=== PATIENT | male | born 1955 | race Caucasian/White ===

== ENCOUNTER 2019-06-28 15:08 | Outpatient (CLI) | payer OTHER, SELFPAY ==
--- NOTE | ~2019-06-28 | CT_ITS ---
EXAMINATION: CT abdomen wo con EXAM DATE: 06/28/2019 15:32 INDICATION: Abdominal pain. TECHNIQUE: Spiral CT of the abdomen was performed without contrast. Axial, coronal and sagittal carmella ges were reviewed. The dose-length product (DLP) for this examination was 338.23 mGy-cm. The exposu re was tailored according to patient size (auto mA exposure control), and iterative reconstruction (A SIR) was used as additional dose reduction technique. Comparison is made to prior examination from . FINDINGS: The liver, spleen, adrenal glands and pancreas are unremarkable. Gallbladder is unremarkab le. No biliary obstruction. There are 2 punctate left calyceal stones. No hydronephrosis. There i s no retroperitoneal lymphadenopathy. The appendix is normal. The stomach and small bowel are unremarkable. There is expected amount of c olonic stool. No free intraperitoneal gas. The heart is normal in size. There are no pericardial or pleural effusions. The lung bases are unremarkable. Moderate to severe thoracolumbar disc disea se. IMPRESSION: 1. No acute intra-abdominal findings. 2. Punctate left nephrolithiasis. Reviewed, dictated and finalized at location B. E TENDER
== END 2019-06-28 15:09 | disposition home or self-care (01) ==
PROVIDERS: PCP Emergency Medicine; Visit Provider Emergency Medicine
DX: R10.9 Unspecified abdominal pain (principal); N20.0 Calculus of kidney
CPT/HCPCS: 74150

== ENCOUNTER 2019-07-06 11:01 | Emergency (ER) | payer OTHER, SELFPAY ==
--- NOTE | ~2019-07-06 | CT_ITS ---
EXAMINATION: CT abdomen pelvis w con EXAM DATE: 07/06/2019 13:10 INDICATION: Right lower quadrant pain, symptoms 5 days. TECHNIQUE: Spiral CT of the abdomen and pelvis was performed following intravenous injection of 100 m L Omnipaque 350. Axial, coronal and sagittal images were reviewed. The dose-length product (DLP) fo r this examination was 516.32 mGy-cm. The exposure was tailored according to patient size (auto mA e xposure control), and iterative reconstruction (ASIR) was used as additional dose reduction technique . Comparison is made to prior examination from 06/28/2019. FINDINGS: The liver, spleen, adrenal glands and pancreas are unremarkable. Gallbladder is unremarkab le. No biliary obstruction. Portal and splenic veins are patent. Kidneys enhance symmetrically. T here is no hydronephrosis. The prostate is unremarkable. The bladder is unremarkable. There is no retroperitoneal or pelvic lymphadenopathy. Appendix has some dense material within it, as seen on prior study The appendix is retrocecal in location with some dense material inside as previously seen, without ad jacent inflammation. The stomach and small bowel are unremarkable. There is expected amount of colo everette stool. No free intraperitoneal gas. The heart is normal in size. There are no pericardial or pleural effusions. The lung bases are unremarkable. There are no osteoblastic or osteolytic lesion s identified. Moderate to severe thoracolumbar spondylosis. IMPRESSION: 1. No acute intra-abdominal findings. Reviewed, dictated and finalized at location A. E CHECKER
[2019-07-06 11:07] VITALS: BP 125/75; PULSE 74; RESP 18; TEMP 36.8; O2SAT 99
[2019-07-06 11:58] VITALS: BP 111/75; PULSE 74; RESP 16; O2SAT 100
--- NOTE | 2019-07-06 12:15 | ED.ABDPAIN ---
HPI - Abdominal Pain General Chief Complaint: Abdominal Pain Stated Complaint: RLQ pain Time Seen by Provider: 07/06/19 11:58 Source: patient Mode of arrival: ambulatory Limitations: no limitations History of Present Illness HPI narrative: Patient is a 63-year-old male who presents to emergency department for evaluation of abdominal pain localized to the right side that is been present now for 10 days has had a history of chronic low back pain for which he takes hydrocodone. Patient notes that he had recent CAT scan with unsure etiology to his pain. Patient notes he has had decreased appetite with some nausea and vomiting. Patient denies change in bowel habits or any constipation diarrhea rectal bleeding or melena. Patient does not take anything other than his prescribed pain medication. Pain is worse with activity and movement and p.o. intake Related Data Home Medications Medication Instructions Recorded Confirmed hydrocodone 10 mg-acetaminophen 1 tablet PO Q4-6H PRN tablet 06/21/19 325 mg tablet valacyclovir 500 mg tablet 500 mg PO DAILY 06/21/19 Allergies Allergy/AdvReac Type Severity Reaction Status Date / Time No Known Allergies Allergy Verified 07/06/19 12:00 Review of Systems Review of Systems: All systems reviewed & are unremarkable except as noted in HPI and below PMFSH Past Medical History Medical History (Updated 07/06/19 @ 13:48 by Denis Oneal PA-C) Nephrolithiasis Surgical History Surgical History (Updated 07/06/19 @ 12:19 by Denis Oneal PA-C) H/O endoscopy Hx of colonoscopy Social History Social History Smoking status: Never smoker Alcohol intake: current Gender identity (if verbalized by the patient): Male Exam Narrative: Exam Narrative: GENERAL: Well-appearing, well-nourished, and in no acute distress. HEAD: Normocephalic, atraumatic. EYES: PERRLA and EOMI. ENT: Nares clear, no rhinorrhea or epistaxis. Mucous membranes moist. CHEST: Clear to auscultation. No respiratory distress. No wheezes rales or rhonchi HEART: Regular rate and rhythm. No murmur heard. Normal peripheral pulses. ABDOMEN: Soft, right-sided abdominal tenderness, nondistended EXTREMITIES: Normal range of motion. No edema. SKIN: Warm, dry, no rash. NEURO: No focal deficits. Alert and oriented x3. PSYCH: Normal mood and affect. Course Course Emergency Course: Patient in the room in no distress aware of case findings treatment plan and diagnosis agreeing to follow-up as directed or to return if symptoms worsen or concerns Vital Signs Vital signs: Vital Signs Temperature 98.2 F 07/06/19 11:07 Pulse Rate 74 07/06/19 11:07 Respiratory Rate 18 07/06/19 11:07 Blood Pressure 125/75 07/06/19 11:07 Pulse Oximetry 99 07/06/19 11:07 Temperature 98.2 F 07/06/19 11:07 Pulse Rate 74 07/06/19 11:58 Respiratory Rate 16 07/06/19 11:58 Blood Pressure 111/75 07/06/19 11:58 Pulse Oximetry 100 07/06/19 11:58 MDM - Abdominal Pain MDM Narrative Medical decision making narrative: Patient in the room in no distress unclear as to the etiology of his chronic belly pains patient without high risk changes in the blood work or imaging will be referred to gastroenterology for further evaluation. Patient was also provided with reasons to return Lab Data Result diagrams: 07/06/19 12:04 07/06/19 12:04 Labs: Lab Results 07/06/19 07/06/19 07/06/19 Range/Units 12:04 12:04 12:40 WBC 4.5 (4.5-10.0) K/mm3 RBC 4.74 (4.6-6.20) M/mm3 Hgb 14.5 (14.0-18.0) g/dL Hct 45.2 (42.0-52.0) % MCV 95.4 (80-100) fl MCH 30.6 (26-34) pg MCHC 32.1 (32-36) g/dl RDW 12.8 (11.5-14.5) % Plt Count 136 L (150-375) k/mm3 MPV 12.5 H (7.4-10.4) fl Immature Gran % (Auto) 0.4 (0-0.5) % Neut % (Auto) 55.4 (45.5-73.1) % Lymph % (Auto) 32.5 (18.3-44.2)
[2019-07-06 12:18] LABS: Basophils Percent Auto 0.7 % (0.2-1.2); Eosinophils Absolute Auto 0.2 K/mm3 (0-0.3); Eosinophils Percent Auto 4.5 % (0-4.4); Hematocrit 45.2 % (42.0-52.0); Hemoglobin 14.5 g/dL (14.0-18.0); Immature Granulocyte Absolute 0.02 K/mm3 (0.00-0.031); Immature Granulocyte Percent A 0.4 % (0-0.5); Lymphocytes Absolute Auto 1.46 K/mm3 (0.9-3.2); Lymphocytes Percent Auto 32.5 % (18.3-44.2); Mean Corpuscular HGB Conc 32.1 g/dl (32-36); Mean Corpuscular Hemoglobin 30.6 pg (26-34); Mean Corpuscular Volume 95.4 fl (80-100); Mean Platelet Volume 12.5 fl (7.4-10.4); Monocytes Absolute Auto 0.3 K/mm3 (0.1-0.6); Monocytes Percent Auto 6.5 % (2.6-8.5); Neutrophils Absolute Auto 2.5 K/mm3 (1.3-6.7); Neutrophils Percent Auto 55.4 % (45.5-73.1); Platelet Count Result 136 k/mm3 (150-375); Red Blood Count 4.74 M/mm3 (4.6-6.20); Red Cell Distribution Width 12.8 % (11.5-14.5); White Blood Count 4.5 K/mm3 (4.5-10.0)
[2019-07-06 12:30] LABS: Alanine Aminotransferase 38 U/L (4-50); Albumin Level 4.8 g/dL (3.5-5.1); Alkaline Phosphatase 61 U/L (38-126); Aspartate Amino Transferase 35 U/L (17-59); Bilirubin,Total 0.8 mg/dL (0.2-1.3); Blood Urea Nitrogen 11 mg/dL (9-20); Calcium 9.7 mg/dL (8.4-10.2); Carbon Dioxide 27 mmol/L (22-30); Chloride 99 mmol/L (98-107); Estimated CRCL calculation 92 ml/min; Estimated Glomerular Filt Rate > 60; Glucose 91 mg/dL (75-110); Lipase 78 U/L (23-300); Potassium 4.3 mmol/L (3.4-5.0); Sodium 140 mmol/L (137-145)
[2019-07-06] MEDS: SODIUM CHLORIDE 0.9% IV 1,000 ML 999 ML IV CONT (12:30)
[2019-07-06] MEDS: FAMOTIDINE 20 MG/2 ML VIAL IV PUSH (12:48)
[2019-07-06] MEDS: ONDANSETRON INJ 4 MG/2 ML VIAL IV PUSH (12:48)
[2019-07-06 12:52] LABS: Add Urine Microscopic? YES; Appearance Urine Clear (Clear); Bacteria Urine Trace /hpf; Bilirubin Urine Negative (Negative); Blood Urine Negative (Negative); Color Urine Yellow (Yellow); Glucose Urine UA Negative (Negative); Ketones Urine 1+ mg/dL (Negative); Leukocyte Esterase Ur Negative LEU/UL (Negative); Mucus Urine Moderate /lpf; Nitrate Urine Negative (Negative); Protein Urine 1+ mg/dL (Negative); RBC Urine 0-2 /hpf (0-2); Specific Grav Ur 1.017 (1.001-1.035); Squamous Epithelial Cell Urine Rare /hpf (Few); Urobilinogen Urine Negative mg/dL (<2.0); WBC Urine 0-3 /hpf
[2019-07-06 14:23] VITALS: BP 118/70; PULSE 82; RESP 16; O2SAT 99
== END 2019-07-06 14:10 | disposition home or self-care (01) ==
PROVIDERS: Emergency Medicine Emergency Medical Services; Emergency Provider Emergency Medicine; PCP Emergency Medicine
DX: R10.9 Unspecified abdominal pain (principal); Z87.442 Personal history of urinary calculi
CPT/HCPCS: 36415; 74177; 80053; 81001; 83690; 85025; 96361; 96374; 96375; 99284; J0131; J2405; J7030; Q9967

== ENCOUNTER 2019-07-19 01:24 | Day surgery (SDC) | payer OTHER, SELFPAY ==
[2019-07-16 15:28] VITALS: BMI 24.0
[2019-07-19 11:12] VITALS: BP 113/72; PULSE 64; RESP 20; TEMP 36.3; O2SAT 96; BMI 24.0
[2019-07-19] MEDS: LACTATED RINGERS 1,000 ML 150 ML IV CONT (11:35)
--- NOTE | 2019-07-19 11:44 | WPDANESEPPF ---
Anes - Initial Pre Proc Eval Procedure: Operation Date: 07/19/19 12:30 Proposed Procedures p Esophagogastroduodenoscopy - Marco A Baez MD Date/Time: 07/19/19 11:44 Surgeon: Marco A Baez MD Pre Op Diagnosis: Nausea Patient Data Age: 63 Gender: M Height: 1.88 m Weight: 84.9 kg Last Vital Signs Temp 36.3 C L 07/19/19 11:12 Pulse 64 07/19/19 11:12 Resp 20 07/19/19 11:12 BP 113/72 07/19/19 11:12 Pulse Ox 96 07/19/19 11:12 Allergies Allergy/AdvReac Type Severity Reaction Status Date / Time No Known Allergies Allergy Verified 07/19/19 11:11 Home Medications Medication Instructions Recorded Confirmed Type cetirizine 10 mg tablet 10 mg PO BID #60 tablet 06/04/19 07/16/19 Rx zolpidem 10 mg tablet 10 mg PO ONCE PRN #30 tablet 06/08/19 07/16/19 Rx hydrocodone 10 mg-acetaminophen 1 tablet PO Q4-6H PRN tablet 06/21/19 07/19/19 History 325 mg tablet valacyclovir 500 mg tablet 500 mg PO DAILY 06/21/19 07/16/19 History famotidine [Pepcid] 20 mg PO BID #14 tablet 07/06/19 07/16/19 Rx hyoscyamine sulfate [Levsin] 0.125 mg PO QID #10 tablet 07/06/19 07/16/19 Rx ondansetron 4 mg PO TID #7 tablet 07/06/19 07/16/19 Rx esomeprazole magnesium 40 mg 40 mg PO DAILY #30 cap 07/12/19 07/16/19 Rx capsule,delayed release lifitegrast [Xiidra] 2 drp OPHTHALMIC (EYE) DAILY 07/16/19 07/19/19 History Patient hx anesthesia problems: none Family hx anesthesia problems: none PMFSH Past Medical History Medical History (Updated 07/19/19 @ 11:45 by Deejay Osborn DO) Chronic pain Depression GERD (gastroesophageal reflux disease) Nausea Nephrolithiasis RLQ abdominal pain Thrombocytopenia Surgical History Surgical History (Updated 07/06/19 @ 12:19 by Denis Oneal PA-C) H/O endoscopy Hx of colonoscopy Social History Social History Smoking status: Never smoker Alcohol intake: current Gender identity (if verbalized by the patient): Male Anes - Eval Final PreProcedure Day of Procedure 07/19/19 11:44 Patient weight: normal Heart: regular rate and rhythm Lungs: clear to auscultation and normal air movement Airway: Mallampati scale class II Neurological: alert and oriented Last oral intake: >/= 8 hours ASA classification: III Emergent: no Anesthetic plan: proceed Anesthesia type and monitoring: general GIVS and standard monitoring Informed Consent: The patient's anesthetic plan and its attendant risks and benefits were discussed with the patient/family/POA. Questions were solicited and answers provided to the satisfaction of the patient/family/POA.
--- NOTE | 2019-07-19 12:09 | WPDHPUPDATE1 ---
History and Physical Update Update Date/Time: 07/19/19 12:09 History and Physical has been reviewed, including an updated exam of the patient. There are NO changes in the patient's condition. Risks, benefits, and alternatives have been discussed and questions answered. Patient agrees to proceed with procedure.
[2019-07-19 12:30] VITALS: BP 101/62; PULSE 55; RESP 17; O2SAT 98
[2019-07-19 12:40] VITALS: BP 99/62; PULSE 55; RESP 16; O2SAT 99
[2019-07-19 12:50] VITALS: BP 102/69; PULSE 52; RESP 18; O2SAT 99
== END 2019-07-19 13:06 | disposition home or self-care (01) ==
PROVIDERS: PCP Emergency Medicine; Visit Provider Internal Medicine Gastroenterology
PROC: 0DJ08ZZ Inspection of Upper Intestinal Tract, Via Natural or Artificial Opening Endoscopic (ICD-10-PCS; CPT 43235; principal; 2019-07-19 12:30)
DX: K21.0 Gastro-esophageal reflux disease with esophagitis (principal); K44.9 Diaphragmatic hernia without obstruction or gangrene; K29.70 Gastritis, unspecified, without bleeding; G89.29 Other chronic pain; F32.9 Major depressive disorder, single episode, unspecified; Z79.891 Long term (current) use of opiate analgesic
CPT/HCPCS: 43239; 88305; J2704; J7120

== ENCOUNTER 2020-06-16 11:08 | Emergency (ER) | payer MEDICARE, SELFPAY ==
[2020-06-16] VITALS (16 sets, daily range): BP systolic 112–138; BP diastolic 67–89; PULSE 56–79; RESP 6–20; TEMP 37.1; O2SAT 95–100
--- NOTE | ~2020-06-16 | XR_ITS ---
XR chest 2V DATE: 06/16/2020 11:56 INDICATION: Chest pain for one day TECHNIQUE: PA and lateral views COMPARISON: 02/04/2017 two-view chest 03/24/2017 CT chest abdomen pelvis FINDINGS: Normal heart size. Mild aortic unfolding. No hilar or mediastinal enlargement. No pulmonary infiltrate or consolidation, pleural effusion or pulmonary vascular congestion or pneumo thorax. Degenerative spurring of the thoracic spine. Osteopenia. IMPRESSION: No active cardiac pulmonary disease Reviewed, dictated and finalized at location A. ACUTE CARE REGISTERED NURSE
--- NOTE | 2020-06-16 11:12 | ECG_ITS ---
Measurements Intervals Capac Rate: 64 P: 58 VA: 168 QRS: 63 QRSD: 102 T: 56 QT: 396 QTc: 410 Interpretive Statements SINUS RHYTHM BASELINE ARTIFACT- I, III, AVL BORDERLINE ECG Electronically Signed On 06-16-2020 11:32:36 AN EMPLOYEE SPONSOR OR ADVOCATE AND by Raphael Mckeon D.O.
[2020-06-16 11:33] LABS: Basophils Percent Auto 0.6 % (0.2-1.2); Eosinophils Absolute Auto 0.2 K/mm3 (0-0.3); Eosinophils Percent Auto 5.5 % (0-4.4); Hematocrit 46.7 % (42.0-52.0); Immature Granulocyte Absolute 0.01 K/mm3 (0.00-0.031); Immature Granulocyte Percent A 0.3 % (0-0.5); Immature Platelet Fraction Pct 9.9 % (0.9-11.2); Lymphocytes Percent Auto 33.1 % (18.3-44.2); Mean Corpuscular HGB Conc 32.1 g/dl (32-36); Mean Corpuscular Hemoglobin 30.9 pg (26-34); Mean Corpuscular Volume 96.3 fl (80-100); Mean Platelet Volume 11.9 fl (7.4-10.4); Monocytes Absolute Auto 0.3 K/mm3 (0.1-0.6); Monocytes Percent Auto 7.7 % (2.6-8.5); Neutrophils Absolute Auto 1.9 K/mm3 (1.3-6.7); Neutrophils Percent Auto 52.8 % (45.5-73.1); Platelet Count Result 118 k/mm3 (150-375); Red Blood Count 4.85 M/mm3 (4.6-6.20); Red Cell Distribution Width 13.2 % (11.5-14.5); White Blood Count 3.6 K/mm3 (4.5-10.0)
[2020-06-16] MEDS: ASPIRIN 81 MG CHEWABLE TABLET 324 MG PO (11:37)
[2020-06-16 11:41] LABS: Anion Gap 3 mmol/L (8-16); Blood Urea Nitrogen 9 mg/dL (9-20); Calcium 8.7 mg/dL (8.4-10.2); Carbon Dioxide 32 mmol/L (22-30); Chloride 105 mmol/L (98-107); Estimated CRCL calculation 91 ml/min; Estimated Glomerular Filt Rate > 60; Glucose 92 mg/dL (75-110); Potassium 4.1 mmol/L (3.4-5.0); Sodium 140 mmol/L (137-145)
[2020-06-16 11:42] LABS: INR 0.9; Prothrombin Time 12.9 Seconds (11.1-14.7)
--- NOTE | 2020-06-16 11:43 | ED.CHESTPAIN ---
HPI - Chest Pain General Chief Complaint: Chest Pain Stated Complaint: chest pain Time Seen by Provider: 06/16/20 11:31 Source: patient Mode of arrival: ambulatory Limitations: no limitations History of Present Illness HPI narrative: Patient is 64 years old presented to the ED with intermittent left chest pain for years, became constant over the last 4 days, worse if he tried to relax, better when he get up and move and walk around. Patient report cannot put anything in his SHIRT bOcket because will aggravate his chest. Patient denies any fever, chills, nausea, vomiting, numbness. History of Covid 19 or exposure to anybody with COVID-19. Patient reports intermittent trouble breathing. Patient lives with his brother, is and have kids are not in touch with him, his brother had history of schizophrenia. Patient denied any history of hypertension, diabetes, hyperlipidemia, smoking, obesity, sedentary life or family history of coronary artery disease. Related Data Home Medications Medication Instructions Recorded Confirmed hydrocodone 10 mg-acetaminophen 1 tablet PO Q4-6H PRN tablet 06/21/19 07/19/19 325 mg tablet lifitegrast [Xiidra] 2 drp OPHTHALMIC (EYE) DAILY 07/16/19 07/19/19 Allergies Allergy/AdvReac Type Severity Reaction Status Date / Time trazodone Allergy Mild Angioedema Verified 03/24/20 08:48 amitriptyline Allergy Unknown EDEMA Verified 03/24/20 08:48 Review of Systems Review of Systems: Narrative: CONSTITUTIONAL: Denies fever, chills, or sweats. EYES: Denies visual changes, redness, or discharge. ENT: Denies rhinorrhea, congestion, sore throat, or otalgia. CARDIOVASCULAR: Denies chest pain, palpitations, or edema. RESPIRATORY: Denies cough or dyspnea. GASTROINTESTINAL: Denies abdominal pain, nausea, vomiting, or diarrhea. GENITOURINARY: Denies dysuria or hematuria. SKIN: Denies rash or itching. MUSCULOSKELETAL: Denies back pain, joint pain, or myalgia. NEUROLOGIC: Denies headache, numbness, or weakness. PSYCHIATRIC: Denies anxiety or depression. [facility] Past Medical History Medical History Back pain Bilateral wrist deformity Chronic pain Depression GERD (gastroesophageal reflux disease) Hx of migraines Nausea Nephrolithiasis Pre-diabetes Right knee DJD RLQ abdominal pain Thrombocytopenia Surgical History Surgical History H/O endoscopy Hx of colonoscopy Family History Family History Sibling Carcinoma of colon, Onset Age: 54 Social History Social History Smoking status: Never smoker Alcohol intake: current Gender identity (if verbalized by the patient): Male Exam Narrative: Exam Narrative: General appearance: Well-developed, well-nourished Skin: Normal color Head: Normocephalic, nontraumatic Eyes: Clear conjunctiva ENT: Oropharynx normal, ears normal, nose normal Neck: Supple, nontender Chest and respiratory: Airway patent, no respiratory distress, no accessory muscle use Heart: Regular rate/rhythm Abdomen: Soft, nontender, no organomegaly, quiet bowel sounds Vascular: Normal peripheral pulses, normal capillary refill. Musculoskeletal: Normal range of motion, nontender back Neurologic: Alert and oriented ?3, RESOURCE MANAGEMENT SPECIALIST is normal as tested, no gross motor deficit Course Course Emergency Course: Stable Vital Signs Vital signs: Vital Signs Temperature 37.1 C 06/16/20 11:18 Pulse Rate 63 06/16/20 11:18 Respiratory Rate 12 06/16/20 11:18 Blood Pressure 138/89 06/16/20 11
[2020-06-16 11:44] LABS: Partial Thromboplastin Time 25.3 SECONDS (22.3-36.8)
[2020-06-16 11:52] LABS: Troponin I < 0.012 ng/mL (0.000-0.034)
== END 2020-06-16 14:04 | disposition home or self-care (01) ==
PROVIDERS: Emergency Provider Emergency Medicine; PCP Internal Medicine
DX: R07.89 Other chest pain (principal); K21.9 Gastro-esophageal reflux disease without esophagitis; Z87.442 Personal history of urinary calculi; R73.03 Prediabetes; M17.11 Unilateral primary osteoarthritis, right knee; R94.31 Abnormal electrocardiogram [ECG] [EKG]
CPT/HCPCS: 36415; 71046; 80048; 84484; 85025; 85055; 85610; 85730; 93005; 99284; A9270

== ENCOUNTER → 2020-07-29 13:33 | Outpatient (CLI) | payer MEDICARE, SELFPAY ==
--- NOTE | ~2020-07-29 | XR_ITS ---
EXAMINATION: XR shoulder RT min 2V DATE: 07/29/2020 13:54 INDICATION: Right shoulder pain. TECHNIQUE: 4 views of right shoulder were obtained. COMPARISON: Right shoulder radiographs 03/05/2013 FINDINGS: Bone alignment is normal. No fracture. There are likely changes of distal clavicle resectio n. There is mild osteoarthritis of glenohumeral joint. IMPRESSION: 1. Mild osteoarthritis of glenohumeral joint. Reviewed, dictated and finalized at location A.
== END ==
PROVIDERS: PCP Internal Medicine; Visit Provider Nurse Practitioner Family
DX: M19.011 Primary osteoarthritis, right shoulder (principal)
CPT/HCPCS: 73030

== ENCOUNTER 2021-02-19 09:46 | Outpatient (CLI) | payer MEDICARE, SELFPAY ==
--- NOTE | ~2021-02-19 | US_ITS ---
EXAMINATION: US right upper quadrant EXAM DATE: 02/19/2021 10:29 INDICATION: Right upper quadrant pain. TECHNIQUE: Multiple grayscale and Doppler images of the abdomen right upper quadrant were obtained (b y a technologist who performed the scan) and subsequently reviewed. Comparison is made to prior exami nation from 02/04/2017. FINDINGS: The pancreatic head and body are normal in appearance. The pancreatic tail is not visualized. The l iver has normal echogenicity and contour. There are no focal liver lesions identified. There is no evidence of intrahepatic biliary duct dilation. Portal venous flow was seen in the hepatopedal, nor mal direction and has normal Doppler waveform. No right-sided hydronephrosis. Common bile duct measures 5 mm, which is normal. The gallbladder wall is normal in thickness, with ex pected amount of distention. No sonographic evidence of pericholecystic fluid. There is no cholelit hiases. Technologist performing exam reports patient did not demonstrate sonographic Marrero's sign. Please note that this sign is less reliable in patients who have received pain medication. IMPRESSION: Unremarkable abdominal ultrasound exam. Reviewed, dictated and finalized at location G.
[2021-02-19 11:11] LABS: Alanine Aminotransferase 26 U/L (4-50); Albumin Level 4.6 g/dL (3.5-5.1); Alkaline Phosphatase 63 U/L (38-126); Anion Gap 6 mmol/L (8-16); Aspartate Amino Transferase 29 U/L (17-59); Bilirubin,Total 0.7 mg/dL (0.2-1.3); Blood Urea Nitrogen 11 mg/dL (9-20); Calcium 9.3 mg/dL (8.4-10.2); Carbon Dioxide 31 mmol/L (22-30); Chloride 104 mmol/L (98-107); Estimated Glomerular Filt Rate > 60; Glucose 93 mg/dL (65-110); Sodium 141 mmol/L (137-145)
[2021-02-22 14:45] LABS: GGT 62 U/L (3-70)
== END 2021-02-19 09:47 | disposition home or self-care (01) ==
PROVIDERS: PCP Internal Medicine; Visit Provider Internal Medicine
DX: R10.11 Right upper quadrant pain (principal); R74.8 Abnormal levels of other serum enzymes
CPT/HCPCS: 36415; 76705; 80053; 82977

== ENCOUNTER 2021-04-17 14:36 | Outpatient (CLI) | payer MEDICARE, SELFPAY ==
--- NOTE | ~2021-04-17 | XR_ITS ---
EXAMINATION: XR thoracic spine 3V DATE: 04/17/2021 15:01 INDICATION: Chest pain. TECHNIQUE: 3 views of the thoracic spine on 5 radiographs were obtained. COMPARISON: Thoracic spine radiographs 12/12/2018 FINDINGS: There is 3 degrees levocurvature of lower thoracic spine. Vertebral body heights are normal . There is severely decreased disc height from T9-T10 through T12-L1. There is mildly decreased disc height at multiple other levels. There are endplate osteophytes at most levels. IMPRESSION: 1. Severe lower thoracic spondylosis. Reviewed, dictated and finalized at location A. UCTION CLERKS SUPERVISOR
--- NOTE | ~2021-04-17 | XR_ITS ---
EXAMINATION: XR ribs RT 2V w CXR 2V DATE: 04/17/2021 15:01 INDICATION: Right rib fracture. TECHNIQUE: Frontal and lateral views of the chest and 2 views on 3 radiographs of the right ribs were obtained. COMPARISON: Chest 2 views 06/16/2020 FINDINGS: CHEST TWO VIEWS: The chest demonstrates clear lungs without pneumonia, pleural effusion, or pneumotho rax. The heart size is normal. RIGHT RIBS: There is no rib fracture. IMPRESSION: 1. No rib fracture. Reviewed, dictated and finalized at location A. ICE ESTABLISHMENT ATTENDANT IMPRESSION: 1. No rib fracture.
== END 2021-04-17 14:37 | disposition home or self-care (01) ==
LOC: ANHIMG 14:41
PROVIDERS: PCP Internal Medicine; Visit Provider Physical Medicine & Rehabilitation Pain Medicine
DX: R07.89 Other chest pain (principal); M47.24 Other spondylosis with radiculopathy, thoracic region
CPT/HCPCS: 71046; 71100; 72072

== ENCOUNTER 2021-09-15 12:54 | Outpatient (CLI) | payer MEDICARE, SELFPAY | END 2021-09-15 12:55 | disposition home or self-care (01) | LOC: ANHAUDIO 12:55 | PROVIDERS: PCP Internal Medicine; Visit Provider Otolaryngology | DX: H93.13 Tinnitus, bilateral (principal) | CPT/HCPCS: 92557; 92567 ==

== ENCOUNTER 2022-04-06 13:29 | Outpatient (CLI) | payer MEDICARE, SELFPAY ==
--- NOTE | ~2022-04-06 | XR_ITS ---
XR abdomen/kub 1V 04/06/2022 13:46 Indication: Gross hematuria Procedure: KUB Comparison: 05/10/2018 Findings: Gas pattern is nonobstructive. No urinary tract stones identified. Lung bases unremarkable. Severe lumbar spondylosis with dextroscoliosis. Moderate colonic fecal loading. There are degenerati ve changes of the hips. Impression: 1: No acute abdominal abnormality. Reviewed, dictated and finalized at location A. EWATER TREATMENT PLANT OPERATOR Impression: 1: No acute abdominal abnormality.
--- NOTE | ~2022-04-06 | CT_ITS ---
EXAMINATION: CT abdomen pelvis wo/w con DATE: 04/06/2022 14:15 INDICATION: Gross hematuria TECHNIQUE: Computed tomography (CT) of the abdomen and pelvis was performed without intravenous contr ast. CT of the abdomen and pelvis was then performed with a total of 130 mL Omnipaque-350 intravenous contrast using a double-bolus technique for simultaneous opacification of the renal parenchyma and r enal collecting system. Automated exposure control and iterative reconstruction technique were employ ed. The dose-length product was 1473.33 mGy-cm. COMPARISON: 07/06/2019 FINDINGS: Mild dependent atelectasis in bilateral lower lobes. Heart size is normal. No pericardial or pleural effusion. Small sliding-type hiatal hernia. Small calcified nodule in the anterior margin of the othe rwise normal liver and several splenic calcifications consistent with old granulomatous disease. Gall bladder, pancreas and bilateral adrenal glands are normal. Bowels including the appendix are normal. A few small right renal cysts the largest measuring 1.3 cm. 1 mm nonobstructing stone in upper pole c shalom of the left kidney. No other urolithiasis in the right kidney or along the bilateral ureters. No hydronephrosis. The renal collecting systems and bilateral ureters are opacified in their entirety o n the delayed postcontrast imaging with no evident urothelial irregularities. Mild wall thickening of the incompletely distended bladder. Marked prostatomegaly measuring 4.5 x 3.1 cm. No free intraperit salguero gas or fluid. No pathologically enlarged abdominal or pelvic lymphadenopathy. Mild lumbar dextr ocurvature with severe spondylosis. IMPRESSION: 1. 1 mm nonobstructing left renal stone. 2. Mild bladder wall thickening due at least in part to incomplete distention but also suggests possi ble chronic outlet obstruction from the mildly enlarged prostate. Reviewed, dictated and finalized at location A. EL BURNER IMPRESSION: 1. 1 mm nonobstructing left renal stone. 2. Mild bladder wall thickening due at least in part to incomplete distention b ut also suggests possible chronic outlet obstruction from the mildly enlarged p rostate.
[2022-04-06 13:57] LABS: Estimated Glomerular Filt Rate > 60
== END 2022-04-06 13:30 | disposition home or self-care (01) ==
PROVIDERS: PCP Internal Medicine; Visit Provider Urology
DX: R31.0 Gross hematuria (principal); N20.0 Calculus of kidney; N32.89 Other specified disorders of bladder
CPT/HCPCS: 74018; 74178; Q9967

== ENCOUNTER 2022-06-24 14:47 | Outpatient (CLI) | payer MEDICARE, SELFPAY ==
--- NOTE | ~2022-06-24 | XR_ITS ---
EXAMINATION: XR chest 2V DATE: 06/24/2022 15:09 INDICATION: Chronic cough TECHNIQUE: PA and lateral views of the chest are obtained. COMPARISON: 04/17/2021 FINDINGS: The lungs are free of acute opacities. No pleural effusion or pneumothorax. The cardiomedia stinal silhouette is normal. There is severe thoracic spondylosis. IMPRESSION: 1. No acute cardiopulmonary abnormality. Reviewed, dictated and finalized at location L. ID FERTILIZER SERVICER
== END 2022-06-24 14:48 | disposition home or self-care (01) ==
PROVIDERS: PCP Internal Medicine; Visit Provider Internal Medicine
DX: R05.3 Chronic cough (principal)
CPT/HCPCS: 71046

== ENCOUNTER 2023-07-13 14:24 | Outpatient (CLI) | payer MEDICARE, SELFPAY ==
--- NOTE | ~2023-07-13 | CT_ITS ---
EXAMINATION: CT abdomen pelvis w con DATE: 07/13/2023 15:01 INDICATION: Right flank pain. TECHNIQUE: Computed tomography (CT) of the abdomen and pelvis was performed with 100 mL Omnipaque 350 intravenous contrast. Automated exposure control and iterative reconstruction technique were employe d. The dose-length product was 448.99 mGy-cm. COMPARISON: CT abdomen and pelvis 04/06/2022 FINDINGS: The visualized portions of the lung bases demonstrate mild atelectasis. No pleural effusion . The heart size is normal. No pericardial effusion. Calcifications in the liver and spleen are consi stent with old granulomatous disease. The gallbladder, pancreas, adrenal glands, and left kidney are normal. There are cysts in right kidney measuring up to 18 mm. The prostate is mildly enlarged. There is diffuse bladder wall thickening, likely secondary to chronic outlet obstruction. The appendix is normal. There are no pathologically enlarged lymph nodes. There is no free intraperitoneal fluid. The re is a right inguinal hernia containing fat. There is thoracolumbar dextroscoliosis and severe spond ylosis. IMPRESSION: 1. Right inguinal hernia containing fat. Reviewed, dictated and finalized at location A. PULLER
[2023-07-13 14:56] LABS: Estimated Glomerular Filt Rate > 60
== END 2023-07-13 14:25 | disposition home or self-care (01) ==
PROVIDERS: PCP Internal Medicine; Visit Provider Internal Medicine
DX: K40.90 Unilateral inguinal hernia, without obstruction or gangrene, not specified as recurrent (principal)
CPT/HCPCS: 74177; Q9967

== ENCOUNTER 2023-11-08 16:48 | Outpatient (CLI) | payer MEDICARE, SELFPAY ==
--- NOTE | ~2023-11-08 | MR_ITS ---
MRI of the cervical spine Clinical History: Cervicalgia Technique: Axial T2-weighted and gradient images, and sagittal T1-weighted, T2-weighted, and STIR carmella ges were acquired. Findings: There is no fracture no central spine. There is minimal grade 1 anterolisthesis of C3 over C4. No suspicious bone marrow signal abnormality seen. There is advanced degenerative disc narrowing at C3-C4, C4-C5, C5-C6, and C6-C7. At C2-C3, there is no significant disc bulge or herniation. There is mild facet arthropathy bilateral ly. No spinal canal stenosis or cord compression. Neural foramina are preserved bilaterally. At C3-C4, there is minimal disc osteophyte complex. No canal stenosis or cord compression. Possible m inimal neural foraminal narrowing bilaterally with mild facet arthropathy. At C4-C5, there is mild disc osteophyte complex, without canal stenosis or cord compression. There is bilateral facet arthropathy with bilateral neural foraminal narrowing, left worse than right. At C5-C6, there is disc osteophyte complex, with mild canal stenosis but no marilin cord compression. T here is bilateral neural foraminal narrowing with bilateral facet arthropathy, left worse than right. At C6-C7, there is minimal disc osteophyte complex. No canal stenosis or cord compression. There is p robable bilateral neural foraminal narrowing with bilateral facet arthropathy, right worse than left. No abnormal signal seen in the spinal cord. Paravertebral soft tissues are unremarkable. Impression: Moderate degenerative spondylosis overall, as detailed above. Minimal grade 1 anterolisthesis of C3 over C4. Reviewed, dictated and finalized at location M. Impression: Moderate degenerative spondylosis overall, as detailed above. Minimal grade 1 anterolisthesis of C3 over C4.
== END 2023-11-08 16:49 | disposition home or self-care (01) ==
LOC: ANHIMG 16:49
PROVIDERS: PCP Internal Medicine; Visit Provider Nurse Practitioner Family
DX: M47.892 Other spondylosis, cervical region (principal)
CPT/HCPCS: 72141

== ENCOUNTER 2024-02-22 10:50 | Day surgery (SDC) | payer MEDICARE, SELFPAY ==
[2024-02-13 13:13] VITALS: BMI 24.3
[2024-02-13 14:44] VITALS: BMI 24.3
--- NOTE | 2024-02-21 15:38 | P.PNAN_ITS ---
Anes - Initial Pre Proc Eval Procedure: Operation Date: 02/22/24 13:30 Proposed Procedures p Esophagogastroduodenoscopy - Kvng Meredith MD Date/Time: 02/21/24 15:38 Surgeon: Kvng Meredith MD Pre Op Diagnosis: Early Satiety, Gerd Nausea Patient Data Age: 68 Gender: M Height: 1.88 m Weight: 86 kg Allergies Allergy/AdvReac Type Severity Reaction Status Date / Time trazodone Allergy Mild Angioedema Verified 02/22/24 12:22 amitriptyline Allergy Unknown EDEMA Verified 02/22/24 12:22 Home Medications Medication Instructions Recorded Confirmed Type pantoprazole 40 mg tablet,delayed 40 mg PO QAM 1 month #30 tabs 08/20/22 02/22/24 Rx release famotidine 40 mg tablet 40 mg PO QHS 1 month #30 tabs 02/08/24 02/22/24 Rx morphine 15 mg tablet,extended 15 mg PO Q8H 02/08/24 02/22/24 History release tamsulosin 0.4 mg capsule (Flomax) 0.4 mg PO DAILY 02/08/24 02/22/24 History Patient hx anesthesia problems: none Family hx anesthesia problems: none Results Review: All pre-operative results and documents have been reviewed as part of the pre- operative evaluation. [facility] Past Medical History Medical History (Updated 02/08/24 @ 10:25 by Sherly Bryan APN-Susanne) Back pain Bilateral wrist deformity Chronic pain Cough Depression Early satiety GERD (gastroesophageal reflux disease) Hx of migraines Nausea Nephrolithiasis Pre-diabetes Right knee DJD RLQ abdominal pain Thrombocytopenia Surgical History Surgical History H/O endoscopy Hx of colonoscopy Family History Family History Sibling Carcinoma of colon, Onset Age: 54 Social History Social History Smoking status: Never smoker Alcohol intake: never Substance use: former Substance use type: marijuana Living arrangements: with family Gender identity (if verbalized by the patient): Male Spiritual care concerns: No Anes - Eval Final PreProcedure Day of Procedure 02/21/24 15:38 Patient weight: normal Heart: regular rate and rhythm Lungs: clear to auscultation and normal air movement Airway: Mallampati scale class II Neurological: alert and oriented Last oral intake: >/= 8 hours ASA classification: III Emergent: no Anesthetic plan: proceed Anesthesia type and monitoring: general GIVS and standard monitoring Results Review: All pre-operative results and documents have been reviewed as part of the pre- operative evaluation. Informed Consent: The patient's anesthetic plan and its attendant risks and benefits were discussed with the patient/family/POA. Questions were solicited and answers provided to the satisfaction of the patient/family/POA.
[2024-02-22 12:27] VITALS: BP 119/82; PULSE 61; RESP 12; TEMP 36.8; O2SAT 98
[2024-02-22] MEDS: LACTATED RINGERS 1,000 ML 150 ML IV CONT (12:45)
--- NOTE | 2024-02-22 13:05 | WPDHPUPDATE1 ---
History and Physical Update Update Date/Time: 02/22/24 13:05 History and Physical has been reviewed, including an updated exam of the patient. There are NO changes in the patient's condition. Risks, benefits, and alternatives have been discussed and questions answered. Patient agrees to proceed with procedure.
[2024-02-22 13:43] VITALS: BP 109/73; PULSE 54; RESP 17; O2SAT 97
--- NOTE | 2024-02-22 13:44 | WPDANESPN ---
Anes - Prog Note Post-Op Date/Time: 02/22/24 13:44 Cardiovascular status: normal Respiratory status: normal Airway patency: baseline Mental status: baseline Post-Op hydration status: normal Vital Signs: Last Vital Signs Temp 36.8 C 02/22/24 12:27 Pulse 61 02/22/24 12:27 Resp 12 02/22/24 12:27 BP 119/82 02/22/24 12:27 Pulse Ox 98 02/22/24 12:27 O2 Del Method Room Air 02/22/24 12:27 Pain Score (VAS): 0 I/O: Intake & Output 02/21/24 02/22/24 02/22/24 23:59 07:59 15:59 Intake Total 300 Balance 300 Post-procedural complaints: none Patient Feedback: Patient satisfied with anesthetic care. Other Findings: Patient vital signs back to baseline. Patient denies nausea and vomiting. Patient's pain under control. Patient OK for discharge.
[2024-02-22 13:53] VITALS: BP 115/78; PULSE 52; RESP 17; O2SAT 97
[2024-02-22 14:03] VITALS: BP 117/77; PULSE 60; RESP 18; O2SAT 97
== END 2024-02-22 14:15 | disposition home or self-care (01) ==
PROVIDERS: PCP Internal Medicine; Visit Provider Internal Medicine Gastroenterology
PROC: 0DJ08ZZ Inspection of Upper Intestinal Tract, Via Natural or Artificial Opening Endoscopic (ICD-10-PCS; CPT 43235; principal; 2024-02-22 13:30)
DX: R07.89 Other chest pain (principal)
CPT/HCPCS: 43239

== ENCOUNTER 2024-10-30 13:59 | Outpatient (CLI) | payer MEDICARE, SELFPAY ==
--- NOTE | ~2024-10-30 | MR_ITS ---
MRI of the cervical spine Clinical History: Radiculopathy Technique: Axial T2-weighted and gradient images, and sagittal T1-weighted, T2-weighted, and STIR carmella ges were acquired. COMPARISON: 11/08/2023 Findings: No acute fracture or subluxation identified. Osseous alignment is unchanged from prior exam . No suspicious bone marrow signal abnormality seen. At C2-C3, there is mild bilateral facet arthropathy. There is mild right foraminal disc osteophyte co mplex. No spinal canal stenosis, cord compression. Probable mild bilateral neural foraminal narrowing . At C3-C4, there is severe degenerative disc narrowing. No significant disc bulge or herniation. No sp inal canal stenosis or cord compression. Probable minimal left neural foraminal narrowing. Right neur al foramen preserved. At C4-C5, there is advanced degenerative disc narrowing with mild disc bulge. No marilin canal stenosis or cord compression. There is probable minimal left neural foraminal narrowing. Right neural foramen preserved. At C5-C6, there is severe degenerative disc narrowing. There is minimal disc bulge. There is minimal canal stenosis without marilin cord compression. There is probable bilateral neural foraminal narrowing . At C6-C7, there is severe degenerative disc narrowing. There is probable right foraminal osteophyte c omplex with severe right neural foraminal narrowing. Left neural foramen preserved. No marilin canal st enosis or cord compression. No abnormal signal seen in the spinal cord. Paravertebral soft tissues are unremarkable. Impression: Moderate degenerative spondylosis, as above, similar to prior exam. Reviewed, dictated and finalized at [facility]. Impression: Moderate degenerative spondylosis, as above, similar to prior exam.
== END 2024-10-30 14:00 | disposition home or self-care (01) ==
LOC: GOSHIMG 13:59
PROVIDERS: PCP Nurse Practitioner Family; Visit Provider Nurse Practitioner Family
DX: M47.812 Spondylosis without myelopathy or radiculopathy, cervical region (principal)
CPT/HCPCS: 72141

== ENCOUNTER 2025-02-11 09:11 | Emergency (ER) | payer MEDICARE, SELFPAY ==
--- OUTSIDE RECORDS SUMMARY | 2006-03-29 07:30 | XMS_ITS | Continuity of Care Document ---
Author Organization [facility] Address [address] [place] [address] [place] [address] Phone Care Team Providers Care Washing Machine Loader Name Role Phone Too Gavin MD Unavailable Unavailable Advance Directives Directive Yes / No Effective Date File Name No Information Encounters Encounter Description Practice Location Reason(s) For Visit Diagnoses Date Provider Providers Copied on Encounter [facility], [address], [place], [place], [id number], [place] tel:[phone] [facility] No Information [address]. [address] [facility] [address], [place], [place], [id number], [place]. tel:[phone] Family History Family Member Type Diagnosis Age At Onset No Information Payers Payer name Insurance type Covered alliance party ID Authoriza tiryanne(s) [facility] CI [id number] Social History Type Description Quantity Date Captured Comments Sex Male Smoking Status No Information Chief Complaint And Reason For Visit No Information Reason For Referral Reason For Referral No Information History Of Present Illness Encounter Date Complaint History Of Prese nt Illness No Information Functional Status Date Functional Assessmen t No Information Instructions Date Instruction Additional Infor mation No Information Assessments Type Assessment Date No Information Patient Care Teams Name Effective Dates (start - stop) Status Members No Information
--- OUTSIDE RECORDS SUMMARY | 2006-03-29 07:30 | XMS_ITS | Continuity of Care Document ---
Author Organization [facility] Address [address] [place] [address] [place] [address] Phone Care Team Providers Care Cream Cheese Maker Name Role Phone Too Gavin MD Unavailable Unavailable Advance Directives Directive Yes / No Effective Date File Name No Information Encounters Encounter Description Practice Location Reason(s) For Visit Diagnoses Date Provider Providers Copied on Encounter [facility], [address], [place], [place], [id number], [place] tel:[phone] [facility] No Information [address]. [address] [facility] [address], [place], [place], [address], [place]. tel:[phone] Family History Family Member Type Diagnosis Age At Onset No Information Payers Payer name Insurance type Covered alliance party ID Authoriza tiryanne(s) [facility] CI [id number] Social History Type Description Quantity Date Captured [...]
--- OUTSIDE RECORDS SUMMARY | 2023-10-29 16:30 | XMS_ITS ---
Author Organization [facility] ([address]) Address [address] [place] [address] Care Team Providers Care Agriculture Technician Name Role Phone Ayo Huber MD Primary Care Provider Hany Hathaway Unavailable [phone] ZZ-Migration, Provider Unavailable Unavailab le REASON FOR VISIT Multum To Medispan Conversion Encounter Medications Medication SIG (Take, Route, Frequency, Duration) Notes Start Date End Date Status NASAL WASHES N/A DIRECTED INTRANASALLY NEEDED; Duration: 30 *Please review for potential replacement for e-prescription and drug interaction check* Active Fluticasone Propionate 50 MCG/ACT 2 spray(s) in each nostril Qday; Duration: 30 day(s) Active Fluticasone Propionate 50 MCG/ACT 2 spray(s) in each nostril BID; Duration: 30 day(s) Active Amoxicillin 875 MG 1 tab(s) orally every 12 hours Not-Taking HYDROcodone-Acetami nophen 10-325 MG 1 tab(s) orally every 6 hours Not-Taking Cetirizine HCl 10 MG 1 tab(s) orally once a day; Duration: 30 days Active Tamsulosin HCl 0.4 MG 1 cap(s) orally once a day; Duration: 30 day(s) Active Triamcinolone Acetonide 0.1 % 1 tavia applied topically 3 times a day; Duration: 7 day(s) Active Pantoprazole Sodium 40 MG 1 tab(s) orally once a day; Duration: 30 day(s) Active EpiPen 2-Jose 0.3 MG/0.3ML as directed intramuscularly once; Duration: 30 day(s) Active Xolair 150 MG 300 mg subcutaneously every 5 weeks; Duration: 30 day(s) Active Morphine Sulfate 15 MG 1 tab(s) orally every 4 hours Active Encounters Encounter Location Date Provider Diagnosis [place] [address] [place] [address] 10/29/2023 Provider Alvaro Idiopathic urticaria L50.1 ; Dyshidrosis [pompholyx] L30.1 and Allergic rhinitis due to pollen J30.1 Assessments Encounter Date Diagnosis (ICD Code) Assessment Notes Treatment Notes Treatment Clinical Notes Section Notes 10/29/2023 Idiopathic urticaria (ICD-10 - L50.1) 10/29/2023 Dyshidrosis [pompholyx] (ICD-10 - L30.1) 10/29/2023 Allergic rhinitis due to pollen (ICD-10 - J30.1) Plan Of Treatment Medication Medication Name Sig Start Date Stop Date Notes NASAL WASHES N/A DIRECTED INTRANASALLY NEEDED; Duration: 30 *Please review for potential replacement for e-prescription and drug interaction check* Fluticasone Propionate 50 MCG/ACT 2 spray(s) in each nostril Qday; Duration: 30 day(s) Cetirizine HCl 10 MG 1 tab(s) orally onc e a day; Duration: 30 days Triamcinolone Acetonide 0.1 % 1 tavia applied topically 3 times a day; Duration: 7 day(s) EpiPen 2-Jose 0.3 MG/0.3ML as directed intramuscularly once; Duration: 30 day(s) Xolair 150 MG 300 mg subcutaneousl y every 5 weeks; Duration: 30 day(s) Progress Notes * Kvng FLORESDOB:1955 ([age] yo M)Acc No.[id number]:10/29/2023 Patient: Kvng ALEXIS Provider: Emily Hawkins :1955 A ge:67 Y S ex:Male Date:10/29/2023 Address:[facility] [address] [place], [place] [id number] Pcp:Ayo Huber MD Subjective: * Chief Complaints: * 1 . Multum To Medispan Conversion Encounter. * Medical History: * Medications: T aking Morphine Sulfate 15 MG Tablet 1 tab(s) orally every 4 hours , Taking Tamsulosin HCl 0.4 MG Capsule 1 cap(s) orally once a day , Taking Pantoprazole Sodium 40 MG Tablet Delayed Release 1 tab(s) orally once a day , Taking Fluticasone Propionate 50 MCG/ACT Suspension 2 spray(s) in each nostril BID , Not-Taking/PRN HYDROcodone-Acetaminophen 10-325 MG Tablet 1 tab(s) orally every 6 hours , Not-Taking/PRN Amoxicillin 875 MG Tablet 1 tab(s) orally every 12 hours Objective: * Vitals: Assessment: * Assessment: 1. I diopathic urticaria - L50.1 2 . D yshidrosis [pompholyx] - L30.1 ? 3 . A llergic rhinitis due to pollen - J30.1 Plan: * Treatment: 2. D yshidrosis [pompholyx] Continue Triamcinolone Acetonide Ointment, 0.1 %, 1 tavia, applied topically, 3 times a day, 7 day(s), 60, Refills 0. 3. A llergic rhinitis due to pollen Start Cetirizine HCl Tablet, 10 MG, 1 tab(s), orally, once a day, 30 days, 30, Refills 0; S tart Fluticasone Propionate Suspension, 50 MCG/ACT, 2 spray(s), in each nostril, Qday, 30 day(s), 1, Refills 0; S tart NASAL WASHES 1 QUART OF STERILIZED TAP WATER OR DISTILLED WATER, 1 TSP NACL, 1 PINCH OF BAKING SODA, N/A, DIRECTED, INTRANASALLY, NEEDED, 30, QS, Refills PRN, Notes to Pharmacist: *Please review for potential replacement for e-prescription and drug interaction check*. ? * Billing Information: * Visit Code: * Procedure Codes: * Electronic signature of Suzy GREER-Migration on 02/11/2025 at 09:38 AM CDT Sign off status: Pending * Provider: Emily paz Migration Date: 0 10/29/2023 Generated for Amber ren/Jennifer/Shayna on: 0 02/11/2025 09:38 AM CDT
--- OUTSIDE RECORDS SUMMARY | 2024-04-28 16:30 | XMS_ITS ---
Author Organization [facility] Address [facility] Thai Schmitz [address] [id number] Care Team Providers Care Anthropologist Name Role Phone Saeed Tabor M.D. Primary Care Provider Nestor Hughes Unavailable [phone] Migration, Provider Unavailable Unavailable REASON FOR VISIT [facility] To [facility] Conversion Encounter Medications Medication SIG (Take, Route, Frequency, Duration) Notes Start Date End Date Status Valtrex 500 MG Tablet 1 tab(s) orally every 12 hours Active Cetirizine HCl 10 MG Tablet 1 tab(s) orally once a day Active oxyCODONE HCl 10 MG Tablet 1 tab(s) orally every 6 hours Active RANITIDINE 75 MG TABLET 1 TAB(S) ORALLY 2 TIMES A DAY *Please review for potential replacement for e-prescription and drug interaction check* Active Amoxicillin 875 MG Tablet 1 tab(s) orally bid; Duration: 10 days 06/13/2017 Active Encounters Encounter Location Date Provider Diagnosis [facility] [place] [address] [id number] 04/28/2024 Provider Migration Plan Of Treatment No Information Progress Notes * Kvng FLORESDOB:1955 ([age] yo M)Acc No.[id number]:04/28/2024 Patient: Kvng Luciano Provider: Emily paz Migration :1955 A ge:68 Y S ex:Male Date:04/28/2024 Address:[address] [place] [address] Pcp:Saeed Tabor M.D. Subjective: * Chief Complaints: * M ult[facility] To [facility] Conversion Encounter * Medications: T akingAmoxicillin 875 MG Tablet 1 tab(s) orally bid RANITIDINE 75 MG TABLET 1 TAB(S) ORALLY 2 TIMES A DAY , Notes to Pharmacist: *Please review for potential replacement for e-prescription and drug interaction check*Cetirizine HCl 10 MG Tablet 1 tab(s) orally once a day Valtrex 500 MG Tablet 1 tab(s) orally every 12 hours oxyCODONE HCl 10 MG Tablet 1 tab(s) orally every 6 hours Taking Amoxicillin 875 MG Tablet 1 tab(s) orally bid Taking RANITIDINE 75 MG TABLET 1 TAB(S) ORALLY 2 TIMES A DAY , Notes to Pharmacist: *Please review for potential replacement for e-prescription and drug interaction check*Taking Cetirizine HCl 10 MG Tablet 1 tab(s) orally once a day Taking Valtrex 500 MG Tablet 1 tab(s) orally every 12 hours Taking oxyCODONE HCl 10 MG Tablet 1 tab(s) orally every 6 hours * Electronic signature of Prov ider Migration on 02/11/2025 at 09:39 AM CDT Sign off status: Pending * Provider: Emily paz Migration Date: 06/29/2023 Generated for Amber ren/Jennifer/Shayna on: 0 02/11/2025 09:39 AM CDT
[2025-02-11] VITALS (9 sets, daily range): BP systolic 99–127; BP diastolic 57–80; PULSE 54–71; RESP 10–31; TEMP 36.6; O2SAT 96–100
--- NOTE | ~2025-02-11 | CT_ITS ---
EXAMINATION: CT brain wo lily, 02/11/2025 9:55 CDT HISTORY: headache COMPARISON: No comparisons available. Technique: Axial images obtained of the brain without contrast. One or more of the following dose reduction techniques were used: automated exposure control, adjustment of the mA and/or kV according to patient size, use of iterative reconstruction technique. Findings: No acute infarct or parenchymal hemorrhage. No abnormal mass or mass effect. No midline shift. No extra-axial fluid collections. No hydrocephalus. Mastoid air cells unremarkable. Sinuses and orbits unremarkable. No acute fracture. No significant facial or scalp soft tissue swelling evident. No radiopaque foreign body is seen. Impression: 1.No acute intracranial abnormality. Reviewed, dictated and finalized at location P. Impression: 1.No acute intracranial abnormality.
--- OUTSIDE RECORDS SUMMARY | 2025-02-11 04:06 | XMS_ITS | Continuity of Care Document ---
Author Organization [facility] Address [address] [place] [address] Phone Care Team Providers Care Dry Mop Maker Name Role Phone Rajeev Mills MD, MD Unavailable Nathalie vailable Allergies, Adverse Reactions, Alerts Substance Reaction Status Criticality No Known Allergies Active No Inform ation Medications Medication Instructions Dosage Effective Dates (start - stop) Status Comments morphine 15 mg immediate release tablet - Active Procedures Procedure Date X-ray exam Cervical 3 Views Or Less Office[facility]outpatient visit,[facility] 2024 Medical Testimony Deposition Work/medical disability examination [place] X-ray exam of foot, complete X-ray exam of foot, complete X-ray exam of toe(s), 2+views 6 Advance Directives Directive Yes / No Effective Date File Name No Information Encounters Encounter Description Practice Location Reason(s) For Visit Diagnoses Date Provider Providers Copied on Encounter [facility], [address], [id number], tel:[phone] [facility] No Information 5 Gene Boo. [address] [facility] [place] [address], [place], [place], [id number], [place]. tel:[phone] Office[facility]pa [facility]ient [facility], [address], [place], [id number], [place] tel:[phone] [facility] Neck Pain (chief complaint) Neck pain (chief complaint) Cervicalgia Gene Boo. [address] [facility] [address], [place], [place], [id number], [place]. tel:[phone] Referring Provider: Rajeev Mills MD P, [address], [place], [address]. tel:[phone] [facility], [address] [facility] [address], [place], [place], [id number], [place] tel:[phone] [facility] No Information 6 No Information Work/medical disability examination Formerly [facility], [address] [facility] [address], [place], [place], [id number], [place] tel:[phone] [facility] No Information No Information Family History Family Member Type Diagnosis Age At Onset No Information Payers Payer name Insurance type Covered republican ID Authorsamaraa karla(s) AARP Medicare Advantage HMO PPO [place] [id number] Social History Type Description Quantity Date Captured Comments Alcohol Use Details Unknown Caffeine Use Details Unknown Tobacco Use Status No Information Smoking Status No Information Sex Male Gender Identity Male Chief Complaint And Reason For Visit No Information Reason For Referral Reason For Referral No Information Plan Of Treatment Date Type Action Status Referral Ordered: CT scan cervical spine W Contrast spine, cervical ordered Referral Ordered: X-ray exam Cervical 3 Views Or Less spine, cervical ordered Appointment Kvng Flores BOOKED History Of Present Illness Encounter Date Complaint History Of Prese nt Illness Neck pain Neck Pain Functional Status Date Functional Assessmen t No Information Instructions Date Instruction Additional Infor mation No Information Assessments Type Assessment Date No Information Patient Care Teams Name Effective Dates (start - stop) Status Members No Information
--- OUTSIDE RECORDS SUMMARY | 2025-02-11 04:06 | XMS_ITS | Continuity of Care Document ---
Author Organization [facility] Address [address] [place] [address] Phone Care Team Providers Care Consulting Networking Engineer Name Role Phone Rajeev Mills MD, MD Unavailable Nathalie vailable Allergies, Adverse Reactions, Alerts Substance Reaction Status Criticality No Known Allergies Active No Inform ation Medications Medication Instructions Dosage Effective Dates (start - stop) Status Comments morphine 15 mg immediate release tablet - Active Procedures Procedure Date X-ray exam Cervical 3 Views Or Less Office/outpatient visit,[facility] 2024 Medical Testimony Deposition Work/medical disability examination [place] X-ray exam of foot, complete X-ray exam of foot, complete X-ray exam of toe(s), 2+views 6 Advance Directives Directive Yes / No Effective Date File Name No Information Encounters Encounter Description Practice Location Reason(s) For Visit Diagnoses Date Provider Providers Copied on Encounter [facility], [address], [id number], tel:[phone] [facility] No Information 5 Gene Boo. [address] [facility], [place] [address], [place], [place], [id number], [place]. tel:[phone] Office/outpa [facility]ient visit,[facility], [address], [place], [id number], [place] tel:[phone] [facility] Neck Pain (chief complaint) Neck pain (chief complaint) Cervicalgia Gene Boo. [address] [facility] [facility] [address], [place], [place], [id number], [place]. tel:[phone] Referring Provider: Rajeev Mills MD P, [address] [facility] [facility] [address], [place], [address]. tel:[phone] [facility], [address] [facility] [address], [place], [place], [id number], [place] tel:[phone] [facility] No Information 6 No Information Work/medical disability examination Formerly [facility], [address] [facility] [address], [place], [place], [id number], [place] tel:[phone] [facility] No Information No Information Family History Family Member Type Diagnosis Age At Onset No Information Payers Payer name Insurance type Covered green party ID Authorsamaraa karla(s) AARP Medicare Advantage HMO PPO CI [id number] Social History Type Description Quantity Date Captured [...]
--- OUTSIDE RECORDS SUMMARY | 2025-02-11 09:39 | XMS_ITS | Clinical Summary ---
Author Organization 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 Filter Operator Name Role Phone Saeed Tabor MD Primary Care Provide r Allergies No known active allergies Medications HYDROcodone-ac etaminophen (NORCO) 10-325 mg per tablet 09/10/19 20 Active zolpidem (AMBIEN) 10 mg tablet TAKE 1 TABLET BY MOUTH AT BEDTIME NEEDED FOR INSOMNIA 12/10/19 20 Active predniSONE (DELTASONE) 20 mg tablet TAKE 3 TABLETS BY MOUTH ONCE DAILY FOR 3 DAYS, 2 FOR 3 DAYS, 1 FOR 3 DAYS, THEN 1/2 FOR 3 DAYS 10/19/19 20 Active Narcan 4 mg/actuation spray,non-aero desiree USE NASALLY DIRECTED FOR 1 DAY 10/12/19 20 Active levocetirizine (XYZAL) 5 mg tablet TAKE 1 TABLET BY MOUTH EVERYDAY AT BEDTIME 10/13/19 20 Active cimetidine (TAGAMET) 400 mg tablet Take 400 mg by mouth 2 (two) times a day 10/13/19 20 Active ALPRAZolam (XANAX) 0.5 mg tablet Take 0.5 mg by mouth 01/13/20 17 Active omeprazole (PriLOSEC) 20 mg capsule Take 20 mg by mouth 2 (two) times a day 05/12/20 20 Active doxepin (SINEquan) 10 mg capsule TAKE 1 CAPSULE BY MOUTH EVERYDAY AT BEDTIME 04/22/20 20 Active busPIRone (BUSPAR) 15 mg tablet Take 15 mg by mouth 2 (two) times a day 08/22/[address] (PROTONIX) 40 mg EC tablet TAKE 1 TABLET BY MOUTH ONCE A DAY IN THE MORNING BEFORE BREAKFAST FOR ABDOMINAL CRAMPING-DISCOMFORT 09/30/19 21 Active amoxicillin 500 mg capsule TAKE 1 CAPSULE BY MOUTH EVERY 8 HOURS 09/09/19 22 Active Hysingla ER 40 mg tablet,oral only,ext.rel.2 4 hr TAKE 1 TABLET BY MOUTH EVERY 24 HOURS FOR 30 DAYS 09/24/19 Active morphine ER (MS CONTIN) 15 mg 12 hr tablet Take 1 tablet (15 mg total) by mouth every 8 (eight) hours 11/21/19 Active LORazepam (ATIVAN) 1 mg tablet lorazepam 1 mg tablet TAKE 1 TABLET BY MOUTH THREE TIMES DAILY Active ondansetron (ZOFRAN) 4 mg tablet ondansetron HCl 4 mg tablet TAKE 1 TABLET BY MOUTH TWICE DAILY NEEDED FOR NAUSEA Active tamsulosin (FLOMAX) 0.4 mg extended release capsule Take 1 capsule (0.4 mg total) by mouth daily 07/05/19 Active EPINEPHrine (EpiPen 2-Jose) 0.3 mg/0.3 mL auto-injection syringe as directed intramuscularly once; Duration: 30 day(s) Active omalizumab (Xolair) 150 mg injection 300 mg subcutaneously every 5 weeks; Duration: 30 day(s) Activ e triamcinolone (KENALOG) 0.1 % ointment every 8 hours Activ e cyanocobalamin (Vitamin B-12) 1,000 mcg/mL injection Inject 1 mL every month by subcutaneous route. 09/08/19 Active Active Problems Problem Noted Date Diagnosed Date Nasal congestion 09/07/2024 Cobalamin deficiency 05/23/2024 Thrombocytosis 05/23/2024 Vitreous syneresis of both eyes 12/29/2023 Assessment & Plan (12/29/2023 11:39 AM CDT): Patient bothered by floaters OS MF intraocular lens (IOL) OS Educated that ocular health is wnl, no holes/breaks/tears. -Patient feels that his day to day life is affected by floaters -Talked about pars plana vitrectomy (PPV) for relief, explained risks for complications and it being invasive -Explained that floaters should decrease with time -small SRx left eye (OS) improves vision slightly -Can try Vitreous Health supplement, advised there is a small amount of research with this supplement and that it may/may not decrease the prevalence of floaters Patient elected against referral to retina for now, will give it time to see if floaters reduce in size RTC 1 year, sooner if symptoms worsen Dry eye syndrome of both eyes 12/29/2023 Assessment & Plan (12/29/2023 11:37 AM CDT): Pt wakes up in the middle of the night with grittiness left eye (OS) No use of a CPAP, fans at night Sleeps on right side Has tried Refresh ATs, gel ATs, nasal spray, warm compresses, seeking an ENT for sinus problems Recommended patient try Refresh PM ointment at night time and Refresh PFATs prn, likely due to exposure RTC if symptoms worsen Benign prostatic hyperplasia 12/26/2023 Anemia 08/12/2023 Right flank pain 07/04/2023 Disorder of prostate 07/03/2023 Testicular hypofunction 07/03/2023 Acquired pes planus of left foot 09/30/2022 Acquired pes planus of right foot 09/30/2022 Posterior tibial tendinitis of right lower extre mity 09/30/2022 Posterior tibial tendinitis of left lower extrem ity 09/30/2022 Pain in right foot 09/29/2022 Recurrent genital herpes simplex 07/22/2022 Chronic cough 06/22/2022 Fatigue 06/22/2022 Abdominal pain 03/02/2022 Acquired spondylolisthesis 03/02/2022 Cervical radiculopathy 03/02/2022 Cervical spondylosis without myelopathy 03/02/20 22 Degeneration of lumbosacral intervertebral disc 03/02/2022 Nausea 03/02/2022 Viral hepatitis C 03/02/2022 Hypercholesterolemia 01/13/2022 Pharyngitis 09/08/2021 Pseudophakia of both eyes 07/15/2021 Assessment & Plan (12/29/2023 11:34 AM CDT): No PCO both eyes (OU), MFIOL left eye (OS) Observe. Tinnitus 07/15/2021 Cataract 07/14/2021 Chronic pain syndrome 05/20/2020 Gastroesophageal reflux disease 05/20/2020 Chronic migraine without aur a without status migrainosus, not intractable 01/12/2017 History of surgical procedure 07/09/2016 Pain in wrist 10/18/2014 Angioedema 04/22/2014 Disorder of joint 08/16/2013 Rupture of biceps tendon 08/16/2013 Arthralgia of shoulder 07/02/2013 Palpitations 03/02/2011 Depression 03/02/2011 Anxiety disorder 03/02/2011 Atypical chest pain 03/02/2011 Encounters Date Type Department Care Team Description 01/02/2025 Telephone [facility] Medicine Ophthalmology [facility] [facility] [address] [place] [id number] Lobo Yates OD 12/25/2024 4:22 PM CDT - 12/25/2024 11:59 PM CDT Hospital Encounter [facility] [address] [place] [id number] Vishal Sutton MD Left wrist pain Discharge Disposition: Discharge to home or self care 12/25/2024 3:10 PM CDT Office Visit [facility] [address] [place] [address] Advanced Medicine [address] [place] [address] [place] [address] Vishal Sutton MD Left wrist pain (Primary Dx) from Last 3 Months Surgical History Surgery Date Site/Laterality Comments TOTAL KNEE ARTHROPLASTY 05/16/1999 - 05/15/2000 WRIST ARTHROPLASTY Bilateral 2003 Medical History Medical History Date Comments Hx Other Medical neuropathy Hx Other Medical buldging disc Hx Other Medical right knee surg suzanna Hx Other Medical wrist surgery Depression depression Hx Other Medical vasectomy Angioneurotic edema Angioedema - (Added by TW Conv) Arthritis Peripheral neuropathy Migraine Fracture of nasal bones Family History Medical History Relation Name Comments Colon cancer Brother 1 Cancer, colon; Colon cancer Brother 2 Cancer, colon - (Added by TW Conv) Arthritis Father Family history of arthritis - (Added by TW Conv) Other Other 1 No family histo ry of Peptic ulcer disease; Other Other 2 No family histo ry of Ulcerative colitis; Relation Name Status Comments Brother 1 Brother 2 Father Other 1 Other 2 Social History Tobacco Use Types Packs/Day Years Used Date Smoking Tobacco: Never Smokeless Tobacco: Never Alcohol Use Standard Drinks/Week Comments No 0 (1 standard drink = 0.6 oz pur e alcohol) Sex and Gender Information Value Date Recorded Sex Assigned at Not on file Legal Sex Male 1:57 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 Gender Identity Not on file Sexual Orientation Not on file Obstetrics History Last Filed Vital Signs Vital Sign Reading Time Taken Comments Blood Pressure 118/77 05/24/2014 3:19 PM 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 Pulse 75 05/24/2014 3:19 PM 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 Temperature - - Respiratory Rate - - Oxygen Saturation 95% 04/13/2014 11:31 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 Inhaled Oxygen Concentration - - Weight 86.2 kg (190 lb) 12/25/2024 4:07 PM CDT Height 188 cm (6' 2) 12/25/2024 4:07 PM CDT Body Mass Index 24.39 12/25/2024 4:07 PM CDT Plan of Treatment Health Maintenance Due Date Last Done Comments Colon Cancer Screening-Colonoscopy 1954 Depression Screening 1954 Fall Risk Assessment 1955 Hepatitis B Screening 1972 Zoster Vaccine (1 of 2) 2004 Well Visit 65+ 11/14/2019 DTaP/Tdap/Td Vaccine (2 - Td or Tdap) 03/27/202304/2013 Influenza Vaccine (#1) 2025 04/13/2014, 2012 Pneumococcal vaccine 65+ Completed 022, 05/20/2020, 03/27/2013 Hepatitis C Screening Completed 03/02/2022 , 07/29/2011, 07/29/2011 Procedures Procedure Name Priority Date/Time Associated Diagnosis Comments XR WRIST LEFT 3 OR MORE VIEWS Schedule Routine, Read Routine (OP Routine) 12/25/2024 4:28 PM CDT Left wrist pain from Last 3 Months Results * X-ray wrist left 3+ views (12/25/2024 4:28 PM CDT) Anatomical Region Laterality Modality Upper Extremities, Wrist Left Compute d Radiography 12/25/2024 4:33 PM CDT Impressions 12/25/2024 4:33 PM CDT Postsurgical changes of proximal row carpectomy with 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 Electronically signed by: Frankie Acosta MD Narrative 12/25/2024 4:33 PM CDT EXAMINATION: XR WRIST LEFT 3 OR MORE VIEWS HISTORY: Left wrist pain, osteoarthritis FINDINGS: Comparison is made to examination dated 10/15/2005. Redemonstrated postsurgical changes of proximal row carpectomy with a small fragment of scaphoid now articulates with the distal radius. The capitate, hamate, and pisiform also articulate. There is moderate to severe secondary radiocarpal osteoarthritis. The screw within the capitate is unchanged. Moderate 1st carpometacarpal osteoarthritis. Mild to moderate distal radioulnar osteoarthritis. Moderate to severe 1st metacarpophalangeal and 3rd metacarpophalangeal osteoarthritis. No acute fracture. Heterotopic ossification is noted dorsally. There is moderate soft tissue swelling. Radiopaque foreign bodies are present adjacent to the 2nd metacarpal base. Procedure Note Frankie Acosta MD - 12/25/2024 EXAMINATION: XR WRIST LEFT 3 OR MORE VIEWS HISTORY: Left wrist pain, osteoarthritis FINDINGS: Comparison is made to examination dated 10/15/2005. Redemonstrated postsurgical changes of proximal row carpectomy with a small fragment of scaphoid now articulates with the distal radius. The capitate, hamate, and pisiform also articulate. There is moderate to severe secondary radiocarpal osteoarthritis. The screw within the capitate is unchanged. Moderate 1st carpometacarpal osteoarthritis. Mild to moderate distal radioulnar osteoarthritis. Moderate to severe 1st metacarpophalangeal and 3rd metacarpophalangeal osteoarthritis. No acute fracture. Heterotopic ossification is noted dorsally. There is moderate soft tissue swelling. Radiopaque foreign bodies are present adjacent to the 2nd metacarpal base. 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 Electronically signed by: Frankie Acosta MD Vishal Sutton MD IMG XR PROCEDURES Final Resul t from Last 3 Months Insurance MEDICARE ADVANTAGE MEDICARE ADVANTAGE Care Teams Silica Filter Operator Relationship Specialty Start Date End Date Saeed Tabor MD [phone] [place] [address] PCP - General 07/09/16
--- OUTSIDE RECORDS SUMMARY | 2025-02-11 09:39 | XMS_ITS | Data Portability ---
Author Organization [place] [facility], Main Office Address [address] [place] [address] Assessment No assessment recorded. Plan of Treatment Reminders Order Date Submit Date Provider Last Modified By Organization Details Last Modified Time Details Appointments None recorded. Lab lipid panel, serum 2023 024 [facility], [address], [place], [address], 4 02:12:17 CMP, serum or plasma 2023 024 [employer] [facility], [address], [place], [address], 4 02:12:18 CBC w/ auto diff 2023 024 [employer] [facility], [address], [place], [address], 4 02:12:19 PSA, serum or plasma 2023 024 [employer] [facility], [address], [place], [address], 4 16:18:31 Referral None recorded. Procedures None recorded. Surgeries None recorded. Imaging None recorded. Medication Orders pantoprazol e 40 mg tablet,devin yed release 2023 024 [id number], [address], [place], [place], [id number], 4 17:15:42 sucralfate 1 gram tablet 2023 024 [email or web address]662, [address], [place], [place], [id number], 5 12:06:46 tamsulosin 0.4 mg capsule 2023 024 [id number], [address], [place], [place], [id number], 17:15:42 Patient TargetsNo targets recorded. Patient Instructions Encounter Date Encounter Id Patient Instructions Last Modified By Organization Details Last Modified Time 07/04/2023 [id number] dementia rating scale-2* [email or web address] Not available 07/04/2023 15:59:59 alcohol misuse* [email or web address] Not available 07/04/2023 16:00:00 depression screening* [email or web address] Not available 07/04/2023 16:00:00 Timed Up and Go test (TUG)* Not available 07/04/2023 16:00:00 multi-dimensiona health assessment questionnaire* [email or web address] Not available 07/04/2023 16:00:00 Personalized Hea lth Plan and Screening Recommendations Advance Directives - Do you have one? No Not interested at this time Advance Directives - Do we have your advance directive on file in your health record? Primary Prevention/Interven tion (prevents or decreases the chance of common diseases from occurring) Smoking Risk: Non Smoker Alcohol Misuse Screening: Negative Weight: Appropriate Physical activity: Need more exercise/physical activity Nutrition: Average Eat heart healthy diet Fall Risk (screened today): Low Vaccines Pneumococcal: No further needed Influenza: Recommended today, but you have declined Chronic Disease Risks Stroke: Intermediate Risk Active diagnosis, Continue current treatment plan Heart Attack: Intermediate Risk Active diagnosis, Continue current treatment plan Clogging of the Arteries: Intermediate Risk Active diagnosis, Continue current treatment plan Diabetes: Low Risk I have no recommendations Secondary Prevention/Interven tion (detects treatable diseases before they may cause symptoms, disability, or ) Prostate Cancer Screening: recommended Colon Cancer Screening: Colonoscopy due 01/2024 Date Screening Last Performed: __2019 Eye Disease Screening: Your next exam in: goes yearly Dementia Risk: Low I have no recommendations Depression Screening: Negative I have no recommendations Not available 07/04/2023 15:40:57 Medicare wellnes s evaluation risk assessment stable. Follow-up for abdominal pain -hyperlipidemia -chronic pain syndrome all clinically stable. Will continue with current medication at this time. Will get a PSA. Will set up for CT scan of the abdomen and pelvis with contrast. For further evaluation. Follow-up in four months Portions of the record may have been created with voice recognition software. Occasional wrong-word or s ound-a-like substitutions may have occurred due to the inherent limitations of voice recognition software. Read the chart carefully and recognize, using context, where substitutions have occurred. CT scan of the abdomen pelvis with contrast for right flank pain [email or web address] Not available 07/04/2023 15:59:21 12/26/2023 [id number] GERD, benign prostatic hypertrophy, testicular hypofunction chronic pain syndrome all clinically stable. Has recently seen Cardiology which has had a stress test as well as echocardiogram which were well within normal limits. It does sound like some of his chest pain is likely secondary to GERD. Already taking pantoprazole 40 mg daily. Will continue on this and had some sucralfate 1 g q.i.d.. And see if there is any additional improvement. If not will need consider GI consultation with possible upper endoscopy. Next Appointment: 4 Months Approximate Date: 04/24/2024 Portions of the record may have been created with voice recognition software. Occasional wrong-word or s ound-a-like substitutions may have occurred due to the inherent limitations of voice recognition software. Read the chart carefully and recognize, using context, where substitutions have occurred. Not available 12/26/2023 17:15:30 04/30/2024 [id number] Follow-up GERD, hyperlipidemia, history of colon polyps and chronic pain syndrome all clinically stable. Clinically doing reasonably well otherwise. Will continue on current medications. Will check blood work consisting of CBC, CMP and lipid panel. Clinically is doing well otherwise. Will follow-up in four months Patient advised on FDA recommendations of a Influenza, RSV, COVID, pneumococcal, and Herpes Zoster immunizations. Follow Up: 4 Months Approximate Date: 08/28/2024 Portions of the record may have been created with voice recognition software. Occasional wrong-word or s ound-a-like substitutions may have occurred due to the inherent limitations of voice recognition software. Read the chart carefully and recognize, using context, where substitutions have occurred. Created: Ayo Huber M.D. 04.30.2024 01:47 PM [email or web address] Not available 04/30/2024 14:47:02 07/11/2024 [id number] Chronic pain syndrome, GERD, benign prostatic hypertrophy. The patient has been trying to wean down from the morphine. Has felt somewhat weak run down and fatigued. I believe lot of his symptomatology particularly how he feels may be related to coming down from fairly lost the dosages of medication. Instructed him to continue with what he is doing at this time and wait and see and give this 4-6 additional weeks to see if there is any continued improvement. No need for any blood work at this time. Had some blood work done recently which looked adequate. Will continue on current Rx. Should be due for colonoscopy. Will try to set the patient up in the interim for this. Follow-up in is regular scheduled appointment in August Additional Orders - Directives - Recommendations 1. According to our records he should be due for colonoscopy because of family history of colon cancer. Keep Appointment: Tue 01:50 PM [place] Portions of record are template driven. When necessary additional context will be provided. Additionally some portions have been created with voice recognition software. Occasional wrong-word or s ound-a-like substitutions may have occurred due to the inherent limitations of voice recognition software. Read the chart carefully and recognize, using context, where substitutions may have occurred. Created: Ayo Huber M.D. 07.11.2024 11:22 AM [email or web address] Not available 07/11/2024 12:22:52 09/03/2024 [id number] Follow-up GERD, hyperlipidemia, chronic pain syndrome all clinically stable. No need for any additional blood work at this time. Will continue on current Rx and follow-up in four months is due for colonoscopy. Additional Orders - Directives - Recommendations 1. Follow-up for colonoscopy five years for family history of colon cancer Follow Up: 4 Months Approximate Date: 01/01/2025 Portions of record are template driven. When necessary additional context will be provided. Additionally some portions have been created with voice recognition software. Occasional wrong-word or s ound-a-like substitutions may have occurred due to the inherent limitations of voice recognition software. Read the chart carefully and recognize, using context, where substitutions may have occurred. Created: Ayo Huber M.D. 09.03.2024 02:18 PM [email or web address] Not available 09/03/2024 15:18:28 Reason for Referral None Reported. Results Created Date Observation Date Name Description Value Unit Range Abnormal Flag Note LastModifiedBy Organization Detail LastModifiedTime 06/28/19 24 06/28/2023 CBC/C OMPLE TE BLD COUNT W/DIF F white blood cells 4.8 x10'3 /uL 4.2-10 .8 Not Available [facility] (Lab) [address] [place], [address], 06/28/2023 17:08:12 06/28/19 24 06/28/2023 CBC/C OMPLE TE BLD COUNT W/DIF F red blood cells 4.57 x10'6 /uL 4.10-5 .80 Not Available [facility] (Lab) [address] [place], [address], 06/28/2023 17:08:12 06/28/19 24 06/28/2023 CBC/C OMPLE TE BLD COUNT W/DIF F hemoglobin 13.8 g/dL 13.2-1 7.0 Not Available [facility] (Lab) [address] [place], [address], 06/28/2023 17:08:12 06/28/19 24 06/28/2023 CBC/C OMPLE TE BLD COUNT W/DIF F hematocrit 43.0 % 39.3-5 0.0 Not Available [facility] (Lab) [address] [place], [address], 06/28/2023 17:08:12 06/28/19 24 06/28/2023 CBC/C OMPLE TE BLD COUNT W/DIF F mean red cell volume 94.1 fL 80.0-9 7.0 Not Available [facility] (Lab) [address] [place], [address], 06/28/2023 17:08:12 02/13/20 24 06/28/2023 CBC/C OMPLE TE BLD COUNT W/DIF F mean red cell hemoglobin 30.2 pg 27.0-3 3.0 Not Available [facility] (Lab) [address] [place], [address], 06/28/2023 17:08:12 06/28/19 24 06/28/2023 CBC/C OMPLE TE BLD COUNT W/DIF F mean RBC HGB concentratio n 32.1 g/dL 31.0-3 6.0 Not Available [facility] (Lab) [address] [place], [address], 06/28/2023 17:08:12 06/28/19 24 06/28/2023 CBC/C OMPLE TE BLD COUNT W/DIF F red cell distribution width 13.2 % 11.8-1 5.5 Not Available [facility] (Lab) [address] [place], [address], 06/28/2023 17:08:12 06/28/19 24 06/28/2023 CBC/C OMPLE TE BLD COUNT W/DIF F platelets 107 x10'3 /uL 150-40 0 low Not Available [facility] (Lab) [address] [place], [address], 06/28/2023 17:08:12 06/28/19 24 06/28/2023 CBC/C OMPLE TE BLD COUNT W/DIF F mean platelet volume 13.3 fL 9.0-12 .4 high Not Available [facility] (Lab) [address] [place], [address], 06/28/2023 17:08:12 06/28/19 24 06/28/2023 CBC/C OMPLE TE BLD COUNT W/DIF F neutrophils 57.7 % 39.0-7 2.0 Not Available [facility] (Lab) [address] [place], [address], 06/28/2023 17:08:12 06/28/19 24 06/28/2023 CBC/C OMPLE TE BLD COUNT W/DIF F lymphocytes 26.6 % 16.0-4 7.0 Not Available [facility] (Lab) [address] [place], [address], 06/28/2023 17:08:12 06/28/19 24 06/28/2023 CBC/C OMPLE TE BLD COUNT W/DIF F monocytes 9.0 % 5.0-12 .0 Not Available [facility] (Lab) [address] [place], [address], 06/28/2023 17:08:12 06/28/19 24 06/28/2023 CBC/C OMPLE TE BLD COUNT W/DIF F eosinophils 5.9 % 1.0-7. 0 Not Available [facility] (Lab) [address] [place], [address], 06/28/2023 17:08:12 06/28/19 24 06/28/2023 CBC/C OMPLE TE BLD COUNT W/DIF F basophils 0.6 % 0.0-2. 0 Not Available [facility] (Lab) [address] [place], [address], 06/28/2023 17:08:12 06/28/19 24 06/28/2023 CBC/C OMPLE TE BLD COUNT W/DIF F immature granulocytes 0.2 % 0.00-0 .50 Not Available [facility] (Lab) [address] [place], [address], 06/28/2023 17:08:12 06/28/19 24 06/28/2023 CBC/C OMPLE TE BLD COUNT W/DIF F neutrophils, absolute count 2.76 x10'3 /uL 1.5-8. 0 Not Available [facility] (Lab) [address] [place], [address], 06/28/2023 17:08:12 06/28/19 24 06/28/2023 CBC/C OMPLE TE BLD COUNT W/DIF F lymphocytes, absolute count 1.27 x10'3 /uL 1.07-3 .43 Not Available [facility] (Lab) [address] [place], [address], 06/28/2023 17:08:12 06/28/19 24 06/28/2023 CBC/C OMPLE TE BLD COUNT W/DIF F monocytes, absolute count 0.43 x10'3 /uL 0.29-0 .99 Not Available [facility] (Lab) [address] [place], [address], 06/28/2023 17:08:12 06/28/19 24 06/28/2023 CBC/C OMPLE TE BLD COUNT W/DIF F eosinophils, absolute count 0.28 x10'3 /uL 0.02-0 .53 Not Available [facility] (Lab) [address] [place], [address], 06/28/2023 17:08:12 06/28/19 24 06/28/2023 CBC/C OMPLE TE BLD COUNT W/DIF F basophils, absolute count 0.03 x10'3 /uL 0.01-0 .08 Not Available [facility] (Lab) [address] [place], [address], 06/28/2023 17:08:12 06/28/19 24 06/28/2023 CBC/C OMPLE TE BLD COUNT W/DIF F immature granulocytes ,absolute 0.01 x10'3 /uL 0.00-0 .05 Not Available [facility] (Lab) [address] [place], [address], 06/28/2023 17:08:12 06/28/19 24 06/28/2023 CBC/C OMPLE TE BLD COUNT W/DIF F nucleated red blood cells 0.0 % -0 Not Available [facility] (Lab) [address] [place], [address], 06/28/2023 17:08:12 06/28/19 24 06/28/2023 CBC/C OMPLE TE BLD COUNT W/DIF F NRBC# 0.00 x10'3 /uL Not Available [facility] (Lab) [address] [place], [address], 06/28/2023 17:08:12 06/28/19 24 06/28/2023 COMPR EHENS DOMI METAB OLIC PANEL sodium 139 mmol/ L 137-14 5 Not Available [facility] (Lab) [address] [place], [address], 06/28/2023 17:15:25 06/28/19 24 06/28/2023 COMPR EHENS DOMI METAB OLIC PANEL potassium 4.5 mmol/ L 3.5-5. 1 Not Available [facility] (Lab) [address] [place], [address], 06/28/2023 17:15:25 06/28/19 24 06/28/2023 COMPR EHENS DOMI METAB OLIC PANEL chloride 105 mmol/ L 98-107 Not Available [facility] (Lab) [address] [place], [address], 06/28/2023 17:15:25 06/28/19 24 06/28/2023 COMPR EHENS DOMI METAB OLIC PANEL carbon dioxide 27 mmol/ L 22-30 Not Available [facility] (Lab) [address] [place], [address], 06/28/2023 17:15:25 06/28/19 24 06/28/2023 COMPR EHENS DOMI METAB OLIC PANEL anion gap 11.5 mmol/ L 14-22 low Not Available [facility] (Lab) [address] [place], [address], 06/28/2023 17:15:25 06/28/19 24 06/28/2023 COMPR EHENS DOMI METAB OLIC PANEL glucose 94 mg/dL 70-99 Not Available [facility] (Lab) [address] [place], [address], 06/28/2023 17:15:25 06/28/19 24 06/28/2023 COMPR EHENS DOMI METAB OLIC PANEL BUN 17 mg/dL 8-19 Not Available [facility] (Lab) [address] [place], [address], 06/28/2023 17:15:25 06/28/19 24 06/28/2023 COMPR EHENS DOMI METAB OLIC PANEL creatinine 0.77 mg/dL 0.66-1 .25 Not Available [facility] (Lab) [address] [place], [address], 06/28/2023 17:15:25 06/28/19 24 06/28/2023 COMPR EHENS DOMI METAB OLIC PANEL GFR >60 Refer ence Range : [place] ge GFR Healt hy Adult : >60 mL/mi n/1.7 3 m2 Chron ic Kidne y Disea se: 15-60 mL/mi n/1.7 3 m2 Kidne y Failu re: <15/m L/min /1.73 m2 www.n iddk. nih.g ov The MDRD study equat ion has not been valid ated in child [place] <18 years of age; pregn ant women ; the elder ly >85 years of age; or in some racia l or ethni c subgr oups, such as Hispa nics. Outsi de the valid ated renaldo eters , estim ated GFR is less accur ate, requi ring clini julieth judgm ent on a case- by-ca se basis . Clini julieth inter preta tion for other races and ages must be made by the clini oliverio. The MDRD study equat ion has not been valid ated for the evalu ation of serum creat inine relat ed to nutri larissa l statu s or medic ation usage . For perso ns <18 years of age, a pedia tric GFR calcu lator is avail able on the [facility] websi te: https ://farzana adams.maxi flores/james ofess ional s/kdo qi/gf r_cal culat or Not Available [facility] (Lab) [address] [place], [address], 06/28/2023 17:15:25 06/28/19 24 06/28/2023 COMPR EHENS DOMI METAB OLIC PANEL alkaline phosphatase 72 U/L 38-126 Not Available [facility] (Lab) [address] [place], [address], 06/28/2023 17:15:25 06/28/19 24 06/28/2023 COMPR EHENS DOMI METAB OLIC PANEL alanine aminotransfe rase 35 U/L 0-50 Not Available [facility] (Lab) [address] [place], [address], 06/28/2023 17:15:25 06/28/19 24 06/28/2023 COMPR EHENS DOMI METAB OLIC PANEL aspartate aminotransfe rase 44 U/L 15-46 Not Available [facility] (Lab) [address] [place], [address], 06/28/2023 17:15:25 06/28/19 24 06/28/2023 COMPR EHENS DOMI METAB OLIC PANEL bilirubin, total 0.40 mg/dL 0.20-1 .30 Not Available [facility] (Lab) [address] [place], [address], 06/28/2023 17:15:25 06/28/19 24 06/28/2023 COMPR EHENS DOMI METAB OLIC PANEL calcium 9.3 mg/dL 8.4-10 .2 Not Available [facility] (Lab) [address] [place], [address], 06/28/2023 17:15:25 06/28/19 24 06/28/2023 COMPR EHENS DOMI METAB OLIC PANEL total protein 6.4 g/dL 6.3-8. 2 Not Available [facility] (Lab) [address] [place], [address], 06/28/2023 17:15:25 06/28/19 24 06/28/2023 COMPR EHENS DOMI METAB OLIC PANEL albumin 4.2 g/dL 3.0-4. 4 Not Available [facility] (Lab) [address] [place], [address], 06/28/2023 17:15:25 06/28/19 24 06/28/2023 COMPR EHENS DOMI METAB OLIC PANEL globulin 2.2 g/dL 2.6-4. 2 low Not Available [facility] (Lab) [address] [place], [address], 06/28/2023 17:15:25 06/28/19 24 06/28/2023 COMPR EHENS DOMI METAB OLIC PANEL A/G ratio 1.9 ratio 1.0-2. 0 Not Available [facility] (Lab) [address] [place], [address], 06/28/2023 17:15:25 06/28/19 24 06/28/2023 LIPAS E SERUM lipase 100 U/L 23-300 Not Available [facility] (Lab) [address] [place], [address], 06/28/2023 17:15:27 06/28/19 24 06/28/2023 AMYLA SE SERUM amylase 47 U/L 30-110 Not Available [facility] (Lab) [address] [place], [address], 06/28/2023 17:15:31 07/13/19 24 07/16/2023 TESTO STERO NE, FREE, BIOAV AILAB LE AND TOTAL , MS albumin 4.4 g/dL 3.6-5. 1 Not Available [address], [address], 07/16/2023 16:18:30 07/13/19 24 07/16/2023 TESTO STERO NE, FREE, BIOAV AILAB LE AND TOTAL , MS sex hormone binding globulin 52.2 nmol/ L 22-77 Not Available [address], [address], 07/16/2023 16:18:30 07/13/19 24 07/16/2023 TESTO STERO NE, FREE, BIOAV AILAB LE AND TOTAL , MS testosterone , free 34.7 pg/mL 46.0-2 24.0 low Not Available [address], [address], 07/16/2023 16:18:30 07/13/19 24 07/16/2023 TESTO STERO NE, FREE, BIOAV AILAB LE AND TOTAL , MS testosterone ,bioavailabl e 69.8 NG/dL 110.0- 575.0 low Not Available [address], [address], 07/16/2023 16:18:30 07/13/19 24 07/16/2023 TESTO STERO NE, FREE, BIOAV AILAB LE AND TOTAL , MS testosterone , total, MS 393 NG/dL 250-11 00 Men with clini mary signi fican t hypog onada l sympt oms and testo stero ne value s repea tedly in the range of the 200-3 00 ng/dL or less, may benef it from testo stero ne treat ment after adequ ate risk and benef its couns eling . For addit ional alphonser chris akhtar e refer to https ://ed lee ann on.qu phill [employer]. com/f aq/FA I273 (This link is being provi ded for infor noel nal/e ducat ional purpo ses only. ) (Note ) This test was devel oped and its ptao tical perfo rmanc e omaira cteri stics have been deter mined by [employer]. It has not been clear ed or appro monty by the FDA. This assay has been valid ated pursu ant to the CLIA regul ation s and is used for clini julieth purpo ses. MDF med fusio n [address] [facility] [address] [place] [address] [phone] Elijah angelo MD Not Available [facility] [address] [place], [address], 07/16/2023 16:18:30 07/13/19 24 07/16/2023 PSA, TOTAL PSA, total 0.25 NG/mL < or = 4.00 normal The total PSA value from this assay syste m is stand ardiz ed again st the WHO stand sergio. The test resul t will be appro ximat ángela 20% lower when fabrizio red to the equim olar- stand ardiz ed total PSA (Barba man Coult er). Fabrizio rison of seria l PSA resul ts shoul d be inter prete d with this fact in mind. This test was perfo rmed using the Sieme ns chemi lumin escen t metho d. Value s obtai michi from diffe rent assay metho ds canno t be used inter palmer eably . PSA level s, regar dless of value , shoul d not be inter prete d as absol ivone evide nce of the prese nce or absen ce of disea se. Not Available [facility] [address], [place], [address], 07/16/2023 16:18:31 08/16/19 24 08/17/2023 VITAM IN B12 vitamin B12 330 pg/mL 200-11 00 normal Pleas e Note: Altho ugh the refer ence range for vitam in B12 is 200-1 100 pg/mL , it has been repor elis that betwe en 5 and 10% of patie nts with value s betwe en 200 and 400 pg/mL may exper ience neuro psych iatri c and hemat ologi c abnor malit ies due to occul t B12 defic iency ; less than 1% of patie nts with value s above 400 pg/mL will have sympt oms. Not Available [facility] [address] [address] [place], [address], 08/17/2023 08:21:51 05/04/20 24 05/05/2024 LIPID PANEL , STAND SERGIO cholesterol, total 120 mg/dL <200 normal Not Available [facility] [address] [address] [place], [address], 05/05/2024 02:12:17 05/04/20 24 05/05/2024 LIPID PANEL , STAND SERGIO HDL cholesterol 71 mg/dL > or = 40 normal Not Available [facility] [address] [address] [place], [address], 05/05/2024 02:12:17 05/04/20 24 05/05/2024 LIPID PANEL , STAND SERGIO triglyceride s 34 mg/dL <150 normal Not Available [facility] [address] [address] [place], [address], 05/05/2024 02:12:17 05/04/20 24 05/05/2024 LIPID PANEL , STAND SERGIO LDL-choleste rol 39 mg/dL _(julieth c) normal Refer ence range : <100 Xu able range <100 mg/dL for prima ry preve ntion ; <70 mg/dL for patie nts with CHD or diabe tic patie nts with > or = 2 CHD risk facto rs. LDL-C is now calcu lated using the Joceline mendieta-Hop kins rome woo n, which is a valid ated novel kay tom accur acy than the Fried bill equat ion in the estim ation of LDL-C . Joceline KUMAR et al. UMER. 2013; 310(1 9): 2061- 2068 (http ://ed ucati on.Qu estDi agnos tics. com/f aq/FA Q164) Not Available [address] [address] [place], [address], 05/05/2024 02:12:17 05/04/20 24 05/05/2024 LIPID PANEL , STAND SERGIO chol/HDLC ratio 1.7 (calc ) <5.0 normal Not Available [address] [address] [place], [address], 05/05/2024 02:12:17 05/04/20 24 05/05/2024 LIPID PANEL , STAND SERGIO non HDL cholesterol 49 mg/dL _(julieth c) <130 normal For patie nts with diabe noe plus 1 major ASCVD risk facto r, treat ing to a non-H DL-C goal of <100 mg/dL (LDL- C of <70 mg/dL ) is consi anjelicad a thera pematt c optio n. Not Available [address] [address] , [place], [address], 05/05/2024 02:12:17 05/04/20 24 05/05/2024 COMPR EHENS DOMI METAB OLIC PANEL glucose 88 mg/dL 65-99 normal Fasti ng refer ence inter igor Not Available [address] [address] [place], [address], 05/05/2024 02:12:18 05/04/20 24 05/05/2024 COMPR EHENS DOMI METAB OLIC PANEL urea nitrogen (BUN) 14 mg/dL 7-25 normal Not Available [address] [address] [place], [address], 05/05/2024 02:12:18 05/04/20 24 05/05/2024 COMPR EHENS DOMI METAB OLIC PANEL creatinine 0.99 mg/dL 0.70-1 .35 normal Not Available [address] [address] [place], [address], 05/05/2024 02:12:18 05/04/20 24 05/05/2024 COMPR EHENS DOMI METAB OLIC PANEL eGFR 82 mL/mi n/1.7 3m2 > or = 60 normal Not Available [address], [address], 05/05/2024 02:12:18 05/04/20 24 05/05/2024 COMPR EHENS DOMI METAB OLIC PANEL BUN/creatini ne ratio SEE NOTE: (calc ) 6-22 Not Repor elis: BUN and Creat inine are withi n refer ence range . Not Available [address], [address], 05/05/2024 02:12:18 05/04/20 24 05/05/2024 COMPR EHENS DOMI METAB OLIC PANEL sodium 141 mmol/ L 135-14 6 normal Not Available [address], [address], 05/05/2024 02:12:18 05/04/20 24 05/05/2024 COMPR EHENS DOMI METAB OLIC PANEL potassium 4.3 mmol/ L 3.5-5. 3 normal Not Available [address], [address], 05/05/2024 02:12:18 05/04/20 24 05/05/2024 COMPR EHENS DOMI METAB OLIC PANEL chloride 105 mmol/ L 98-110 normal Not Available [address], [address], 05/05/2024 02:12:18 05/04/20 24 05/05/2024 COMPR EHENS DOMI METAB OLIC PANEL carbon dioxide 30 mmol/ L 20-32 normal Not Available [address], [address], 05/05/2024 02:12:18 05/04/20 24 05/05/2024 COMPR EHENS DOMI METAB OLIC PANEL calcium 9.2 mg/dL 8.6-10 .3 normal Not Available [address], [address], 05/05/2024 02:12:18 05/04/20 24 05/05/2024 COMPR EHENS DOMI METAB OLIC PANEL protein, total 6.6 g/dL 6.1-8. 1 normal Not Available [address], [address], 05/05/2024 02:12:18 05/04/20 24 05/05/2024 COMPR EHENS DOMI METAB OLIC PANEL albumin 4.5 g/dL 3.6-5. 1 normal Not Available [address], [address], 05/05/2024 02:12:18 05/04/20 24 05/05/2024 COMPR EHENS DOMI METAB OLIC PANEL globulin 2.1 g/dL_ (calc ) 1.9-3. 7 normal Not Available [address], [address], 05/05/2024 02:12:18 05/04/20 24 05/05/2024 COMPR EHENS DOMI METAB OLIC PANEL albumin/glob ulin ratio 2.1 (calc ) 1.0-2. 5 normal Not Available [address], [address], 05/05/2024 02:12:18 05/04/20 24 05/05/2024 COMPR EHENS DOMI METAB OLIC PANEL bilirubin, total 0.6 mg/dL 0.2-1. 2 normal Not Available [address], [address], 05/05/2024 02:12:18 05/04/20 24 05/05/2024 COMPR EHENS DOMI METAB OLIC PANEL alkaline phosphatase 61 U/L 35-144 normal Not Available [facility] [employer] [address], [address], 05/05/2024 02:12:18 05/04/20 24 05/05/2024 COMPR EHENS DOMI METAB OLIC PANEL AST 21 U/L 10-35 normal Not Available [address], [address], 05/05/2024 02:12:18 05/04/20 24 05/05/2024 COMPR EHENS DOMI METAB OLIC PANEL ALT 17 U/L 9-46 normal Not Available [address], [address], 05/05/2024 02:12:18 05/04/20 24 05/05/2024 CBC (INCL UDES DIFF/ PLT) white blood cell count 4.0 thous and/u L 3.8-10 .8 normal Not Available [address], [address], 05/05/2024 02:12:19 05/04/20 24 05/05/2024 CBC (INCL UDES DIFF/ PLT) red blood cell count 4.79 mirza on/uL 4.20-5 .80 normal Not Available [address], [address], 05/05/2024 02:12:19 05/04/20 24 05/05/2024 CBC (INCL UDES DIFF/ PLT) hemoglobin 14.3 g/dL 13.2-1 7.1 normal Not Available [address], [address], 05/05/2024 02:12:19 05/04/20 24 05/05/2024 CBC (INCL UDES DIFF/ PLT) hematocrit 45.8 % 38.5-5 0.0 normal Not Available [address], [address], 05/05/2024 02:12:19 05/04/20 24 05/05/2024 CBC (INCL UDES DIFF/ PLT) MCV 95.6 fL 80.0-1 00.0 normal Not Available [address], [address], 05/05/2024 02:12:19 05/04/20 24 05/05/2024 CBC (INCL UDES DIFF/ PLT) MCH 29.9 pg 27.0-3 3.0 normal Not Available [address], [address], 05/05/2024 02:12:19 05/04/20 24 05/05/2024 CBC (INCL UDES DIFF/ PLT) MCHC 31.2 g/dL 32.0-3 6.0 low For adult s, a sligh t decre ase in the calcu lated MCHC value (in the range of 30 to 32 g/dL) is most likel y not clini mary signi lolly t; bennie er, it shoul d be inter prete d with cauti on in [facility] n with other red cell renaldo eters and the patie nt's clini julieth condi tion. Not Available [address], [address], 05/05/2024 02:12:19 05/04/20 24 05/05/2024 CBC (INCL UDES DIFF/ PLT) RDW 13.0 % 11.0-1 5.0 normal Not Available [address], [address], 05/05/2024 02:12:19 05/04/20 24 05/05/2024 CBC (INCL UDES DIFF/ PLT) platelet count 109 thous and/u L 140-40 0 low Not Available [address], [address], 05/05/2024 02:12:19 05/04/20 24 05/05/2024 CBC (INCL UDES DIFF/ PLT) MPV 13.3 fL 7.5-12 .5 high Not Available [address] [place], [address], 05/05/2024 02:12:19 05/04/20 24 05/05/2024 CBC (INCL UDES DIFF/ PLT) absolute neutrophils 1828 cells /uL 1500-7 800 normal Not Available [address], [address], 05/05/2024 02:12:19 05/04/20 24 05/05/2024 CBC (INCL UDES DIFF/ PLT) absolute lymphocytes 1548 cells /uL 850-39 00 normal Not Available [address], [address], 05/05/2024 02:12:19 05/04/20 24 05/05/2024 CBC (INCL UDES DIFF/ PLT) absolute monocytes 300 cells /uL 200-95 0 normal Not Available [address], [address], 05/05/2024 02:12:19 05/04/20 24 05/05/2024 CBC (INCL UDES DIFF/ PLT) absolute eosinophils 292 cells /uL 15-500 normal Not Available [address], [address], 05/05/2024 02:12:19 05/04/20 24 05/05/2024 CBC (INCL UDES DIFF/ PLT) absolute basophils 32 cells /uL 0-200 normal Not Available [address], [address], 05/05/2024 02:12:19 05/04/20 24 05/05/2024 CBC (INCL UDES DIFF/ PLT) neutrophils 45.7 % normal Not Available [address], [address], 05/05/2024 02:12:19 05/04/20 24 05/05/2024 CBC (INCL UDES DIFF/ PLT) lymphocytes 38.7 % normal Not Available [address], [address], 05/05/2024 02:12:19 05/04/20 24 05/05/2024 CBC (INCL UDES DIFF/ PLT) monocytes 7.5 % normal Not Available [address], [address], 05/05/2024 02:12:19 05/04/20 24 05/05/2024 CBC (INCL UDES DIFF/ PLT) eosinophils 7.3 % normal Not Available [address], [address], 05/05/2024 02:12:19 05/04/20 24 05/05/2024 CBC (INCL UDES DIFF/ PLT) basophils 0.8 % normal Not Available [address], [address], 05/05/2024 02:12:19 05/24/19 25 05/25/2024 CBC (INCL UDES DIFF/ PLT) white blood cell count 4.5 thous and/u L 3.8-10 .8 normal Not Available [address], [address], 05/25/2024 07:42:19 05/24/1905/25/2024 CBC (INCL UDES DIFF/ PLT) red blood cell count 4.61 mirza on/uL 4.20-5 .80 normal Not Available [address], [address], 05/25/2024 07:42:19 05/24/1905/25/2024 CBC (INCL UDES DIFF/ PLT) hemoglobin 13.9 g/dL 13.2-1 7.1 normal Not Available [address], [address], 05/25/2024 07:42:19 05/24/1905/25/2024 CBC (INCL UDES DIFF/ PLT) hematocrit 44.2 % 38.5-5 0.0 normal Not Available [address], [address], 05/25/2024 07:42:19 05/24/1905/25/2024 CBC (INCL UDES DIFF/ PLT) MCV 95.9 fL 80.0-1 00.0 normal Not Available [address], [address], 05/25/2024 07:42:05/24/1905/25/2024 CBC (INCL UDES DIFF/ PLT) MCH 30.2 pg 27.0-3 3.0 normal Not Available [address], [address], 05/25/2024 07:42:19 05/24/1905/25/2024 CBC (INCL UDES DIFF/ PLT) MCHC 31.4 g/dL 32.0-3 6.0 low For adult s, a sligh t decre ase in the calcu lated MCHC value (in the range of 30 to 32 g/dL) is most likel y not clini mary signi fican t; bennie er, it shoul d be inter prete d with cauti on in corre lat n with other red cell renaldo eters and the patie nt's clini julieth condi tion. Not Available [address], [address], 05/25/2024 07:42:19 05/24/1905/25/2024 CBC (INCL UDES DIFF/ PLT) RDW 13.2 % 11.0-1 5.0 normal Not Available [address], [address], 05/25/2024 07:42:19 05/24/1905/25/2024 CBC (INCL UDES DIFF/ PLT) platelet count 123 thous and/u L 140-40 0 low Not Available [address], [address], 05/25/2024 07:42:19 05/24/1905/25/2024 CBC (INCL UDES DIFF/ PLT) MPV 12.8 fL 7.5-12 .5 high Not Available [address], [address], 05/25/2024 07:42:19 05/24/1905/25/2024 CBC (INCL UDES DIFF/ PLT) absolute neutrophils 2880 cells /uL 1500-7 800 normal Not Available [address], [address], 05/25/2024 07:42:19 05/24/1905/25/2024 CBC (INCL UDES DIFF/ PLT) absolute lymphocytes 1058 cells /uL 850-39 00 normal Not Available [address], [address], 05/25/2024 07:42:19 05/24/1905/25/2024 CBC (INCL UDES DIFF/ PLT) absolute monocytes 320 cells /uL 200-95 0 normal Not Available [address], [address], 05/25/2024 07:42:19 05/24/1905/25/2024 CBC (INCL UDES DIFF/ PLT) absolute eosinophils 212 cells /uL 15-500 normal Not Available [facility] [address], [address], 05/25/2024 07:42:19 05/24/1905/25/2024 CBC (INCL UDES DIFF/ PLT) absolute basophils 32 cells /uL 0-200 normal Not Available [facility] [address], [address], 05/25/2024 07:42:19 05/24/1905/25/2024 CBC (INCL UDES DIFF/ PLT) neutrophils 64 % normal Not Available [address], [address], 05/25/2024 07:42:19 05/24/1905/25/2024 CBC (INCL UDES DIFF/ PLT) lymphocytes 23.5 % normal Not Available [address], [address], 05/25/2024 07:42:19 05/24/1905/25/2024 CBC (INCL UDES DIFF/ PLT) monocytes 7.1 % normal Not Available [address], [address], 05/25/2024 07:42:19 05/24/1905/25/2024 CBC (INCL UDES DIFF/ PLT) eosinophils 4.7 % normal Not Available [address], [address], 05/25/2024 07:42:19 05/24/1905/25/2024 CBC (INCL UDES DIFF/ PLT) basophils 0.7 % normal Not Available [address], [address], 05/25/2024 07:42:19 05/24/1905/25/2024 VITAM IN B12/F OLATE , SERUM PANEL vitamin B12 344 pg/mL 200-11 00 normal Pleas e Note: Altho ugh the refer ence range for vitam in B12 is 200-1 100 pg/mL , it has been repor elis that betwe en 5 and 10% of patie nts with value s betwe en 200 and 400 pg/mL may exper ience neuro psych iatri c and hemat ologi c abnor malit ies due to occul t B12 defic iency ; less than 1% of patie nts with value s above 400 pg/mL will have sympt oms. Not Available [facility] [address] [address] [place], [address], 05/25/2024 07:42:23 05/24/1905/25/2024 VITAM IN B12/F OLATE , SERUM PANEL folate, serum 12.4 NG/mL normal Refer ence Range Low: <3.4 Borde rline : 3.4-5 .4 Vicki l: >5.4 Not Available [facility] [address], [place], [address], 05/25/2024 07:42:23 06/25/19 25 06/28/2024 TESTO STERO NE, TOTAL , MS testosterone , total, MS 400 NG/dL 250-11 00 For addit ional infor chris akhtar refer to https ://ed ucati on.qu nCrypted Cloud. Tenebril/f aq/To Heath mandel LCMSM S (This link is being provi ded for infor noel nal/e ducat ional purpo ses only. ) (Note ) This test was devel oped and its pato tical perfo rmanc e omaira cteri stics have been deter mined by [employer]. It has not been clear ed or appro monty by the FDA. This assay has been valid ated pursu ant to the CLIA regul ation s and is used for clini julieth purpo ses. MDF med fuscristal n [address] [facility] [address] [facility] [address] [phone] Kavon Kingsley MD, PhD Not Available [facility] [address] [address], [place], [address], 06/28/2024 16:42:40 07/12/1907/13/2024 COMPR EHENS DOMI METAB OLIC PANEL , PLASM A glucose 109 mg/dL 65-139 normal Non-f astin g refer ence inter igor Not Available [facility] [address] [address], [place], [address], 07/13/2024 05:15:29 07/12/19 25 07/13/2024 COMPR EHENS DOMI METAB OLIC PANEL , PLASM A urea nitrogen (BUN) 15 mg/dL 7-25 normal Not Available [address], [address], 07/13/2024 05:15:29 07/12/1907/13/2024 COMPR EHENS DOMI METAB OLIC PANEL , PLASM A creatinine 0.89 mg/dL 0.70-1 .35 normal Not Available [facility] [address], [address], 07/13/2024 05:15:29 07/12/1907/13/2024 COMPR EHENS DOMI METAB OLIC PANEL , PLASM A eGFR 93 mL/mi n/1.7 3m2 > or = 60 normal Not Available [address], [address], 07/13/2024 05:15:29 07/12/1907/13/2024 COMPR EHENS DOMI METAB OLIC PANEL , PLASM A BUN/creatini ne ratio SEE NOTE: (calc ) 6-22 Not Repor elis: BUN and Creat inine are withi n refer ence range . Not Available [address], [address], 07/13/2024 05:15:29 07/12/1907/13/2024 COMPR EHENS DOMI METAB OLIC PANEL , PLASM A sodium 138 mmol/ L 135-14 6 normal Not Available [facility] [address] [place], [address], 07/13/2024 05:15:29 07/12/1907/13/2024 COMPR EHENS DOMI METAB OLIC PANEL , PLASM A potassium 4.2 mmol/ L 3.4-4. 8 normal Not Available [facility] [address], [address], 07/13/2024 05:15:29 07/12/19 25 07/13/2024 COMPR EHENS DOMI METAB OLIC PANEL , PLASM A chloride 106 mmol/ L 98-110 normal Not Available [address], [address], 07/13/2024 05:15:29 07/12/19 25 07/13/2024 COMPR EHENS DOMI METAB OLIC PANEL , PLASM A carbon dioxide 25 mmol/ L 20-32 normal Not Available [address], [address], 07/13/2024 05:15:07/12/1907/13/2024 COMPR EHENS DOMI METAB OLIC PANEL , PLASM A calcium 9.2 mg/dL 8.6-10 .3 normal Not Available [address], [address], 07/13/2024 05:15:29 07/12/19 25 07/13/2024 COMPR EHENS DOMI METAB OLIC PANEL , PLASM A protein, total 7.0 g/dL 6.4-8. 4 normal Not Available [address], [address], 07/13/2024 05:15:29 07/12/19 25 07/13/2024 COMPR EHENS DOMI METAB OLIC PANEL , PLASM A albumin 4.6 g/dL 3.6-5. 1 normal Not Available [address], [address], 07/13/2024 05:15:29 07/12/1907/13/2024 COMPR EHENS DOMI METAB OLIC PANEL , PLASM A globulin 2.4 g/dL_ (calc ) 2.2-4. 0 normal Not Available [address], [address], 07/13/2024 05:15:29 07/12/19 25 07/13/2024 COMPR EHENS DOMI METAB OLIC PANEL , PLASM A albumin/glob ulin ratio 1.9 (calc ) 0.9-2. 3 normal Not Available [address], [address], 07/13/2024 05:15:29 07/12/1907/13/2024 COMPR EHENS DOMI METAB OLIC PANEL , PLASM A bilirubin, total 0.6 mg/dL 0.2-1. 2 normal Not Available [address], [address], 07/13/2024 05:15:29 07/12/1907/13/2024 COMPR EHENS DOMI METAB OLIC PANEL , PLASM A alkaline phosphatase 59 U/L 35-144 normal Not Available [address], [address], 07/13/2024 05:15:29 07/12/19 25 07/13/2024 COMPR EHENS DOMI METAB OLIC PANEL , PLASM A AST 27 U/L 10-35 normal Not Available [address], [address], 07/13/2024 05:15:29 07/12/1907/13/2024 COMPR EHENS DOMI METAB OLIC PANEL , PLASM A ALT 21 U/L 9-46 normal Not Available [address], [address], 07/13/2024 05:15:29 07/12/1907/13/2024 CBC (INCL UDES DIFF/ PLT) white blood cell count 4.8 thous and/u L 3.8-10 .8 normal Not Available [address], [address], 07/13/2024 05:15:31 07/12/19 25 07/13/2024 CBC (INCL UDES DIFF/ PLT) red blood cell count 4.75 mirza on/uL 4.20-5 .80 normal Not Available [address], [address], 07/13/2024 05:15:31 07/12/1907/13/2024 CBC (INCL UDES DIFF/ PLT) hemoglobin 14.4 g/dL 13.2-1 7.1 normal Not Available [address], [address], 07/13/2024 05:15:31 07/12/1907/13/2024 CBC (INCL UDES DIFF/ PLT) hematocrit 44.7 % 38.5-5 0.0 normal Not Available [address], [address], 07/13/2024 05:15:31 07/12/1907/13/2024 CBC (INCL UDES DIFF/ PLT) MCV 94.1 fL 80.0-1 00.0 normal Not Available [address], [address], 07/13/2024 05:15:31 07/12/1907/13/2024 CBC (INCL UDES DIFF/ PLT) MCH 30.3 pg 27.0-3 3.0 normal Not Available [address], [address], 07/13/2024 05:15:31 07/12/19 25 07/13/2024 CBC (INCL UDES DIFF/ PLT) MCHC 32.2 g/dL 32.0-3 6.0 normal For adult s, a sligh t decre ase in the calcu lated MCHC value (in the range of 30 to 32 g/dL) is most likel y not clini mary mcdanielsi lolly t; bennie er, it shoul d be inter prete d with cauti on in corre latio n with other red cell renaldo eters and the patie nt's clini julieth condi tion. Not Available [address] [place], [address], 07/13/2024 05:15:31 07/12/1907/13/2024 CBC (INCL UDES DIFF/ PLT) RDW 13.1 % 11.0-1 5.0 normal Not Available [address], [address], 07/13/2024 05:15:31 07/12/19 25 07/13/2024 CBC (INCL UDES DIFF/ PLT) platelet count 125 thous and/u L 140-40 0 low Not Available [address], [address], 07/13/2024 05:15:31 07/12/1907/13/2024 CBC (INCL UDES DIFF/ PLT) MPV 13.7 fL 7.5-12 .5 high Not Available [address], [address], 07/13/2024 05:15:31 07/12/19 25 07/13/2024 CBC (INCL UDES DIFF/ PLT) absolute neutrophils 2995 cells /uL 1500-7 800 normal Not Available [address], [address], 07/13/2024 05:15:31 07/12/19 25 07/13/2024 CBC (INCL UDES DIFF/ PLT) absolute lymphocytes 1214 cells /uL 850-39 00 normal Not Available [address], [address], 07/13/2024 05:15:31 07/12/19 25 07/13/2024 CBC (INCL UDES DIFF/ PLT) absolute monocytes 322 cells /uL 200-95 0 normal Not Available [address], [address], 07/13/2024 05:15:31 07/12/19 25 07/13/2024 CBC (INCL UDES DIFF/ PLT) absolute eosinophils 240 cells /uL 15-500 normal Not Available [address], [address], 07/13/2024 05:15:31 07/12/19 25 07/13/2024 CBC (INCL UDES DIFF/ PLT) absolute basophils 29 cells /uL 0-200 normal Not Available [address], [address], 07/13/2024 05:15:31 07/12/19 25 07/13/2024 CBC (INCL UDES DIFF/ PLT) neutrophils 62.4 % normal Not Available [address], [address], 07/13/2024 05:15:31 07/12/19 25 07/13/2024 CBC (INCL UDES DIFF/ PLT) lymphocytes 25.3 % normal Not Available [address], [address], 07/13/2024 05:15:31 07/12/19 25 07/13/2024 CBC (INCL UDES DIFF/ PLT) monocytes 6.7 % normal Not Available [address], [address], 07/13/2024 05:15:31 07/12/1907/13/2024 CBC (INCL UDES DIFF/ PLT) eosinophils 5.0 % normal Not Available [address], [address], 07/13/2024 05:15:31 07/12/1907/13/2024 CBC (INCL UDES DIFF/ PLT) basophils 0.6 % normal Not Available [address], [address], 07/13/2024 05:15:31 07/12/19 25 07/13/2024 T4, FREE T4, free 1.1 NG/dL 0.8-1. 8 normal Not Available [facility] [address] [address], [place], [address], 07/13/2024 05:15:32 07/12/19 25 07/13/2024 TSH TSH 2.01 mIU/L 0.40-4 .50 normal Not Available [facility] [address] [address], [place], [address], 07/13/2024 05:15:33 06/30/19 24 06/30/2023 US, abdom en, limit ed [facility] [address] [place] [address] Patien t Name: JOI STUBBS ion #: [id number] Sex: M : 1955 1 Dictat ed By: Rambo giron Attend ing Physic shayy: GYPSY HUBER CE Orderi ng Physic shayy: GYPSY HUBER CE Exam Date: 2023 08:42 AM Exam Name: US ABDOME N SINGLE ORGAN Admitt ing Diagno sis(es ): CLINIC AL INFORM ATION: Abdomi nal pain. TECHNI QUE: Graysc ashley sonogr aphic imagin g of the right upper quadra nt of the abdome n was perfor med, assist ed by color Dopple r techni ques. COMPAR BONG: Correl ation made to prior CT of the abdome n and pelvis dated 021. FINDIN GS: The gallbl adder wall measur es 1.4 mm in thickn ess, within normal limits . No stones are seen. The common bile duct measur es 3.5 mm in diamet er, within normal limits . Mild hepati c steato sis. Liver measur es at the upper limits of normal in size at 16.2 cm. The pancre as was not able to be visual ized, likely obscur ed by bowel gas. The right kidney measur es 9.3 cm. There is no stone or hydron ephros is. Right renal cortic al echoge nicity and cortic al thickn ess are within normal limits . The aorta and IVC were not able to be visual ized. IMPRES HONEY: No sonogr aphic eviden ce of acute cholec ystiti s. There is mild hepati c steato sis. Electr onical ly Signed by: Rambo giron at 2023 09:28: 57 AM Page [address] (Imaging) [address] [place], [address], 06/30/2023 10:33:32 07/13/19 24 07/13/2023 CT, abdom en + pelvi s, w/ contr ast No observ ation record ed. [address], [place], [address], 07/14/2023 06:44:56 07/16/19 24 07/13/2023 CT, abdom en + pelvi s, w/ contr ast No observ ation record ed. [address], [place], [address], 07/16/2023 16:49:28 11/09/19 24 11/08/2023 MRI, cervi julieth spine , w/o contr ast No observ ation record ed. [address], [place], [address], 11/09/2023 09:26:27 11/25/19 24 11/25/2023 cardi ac stres s test No observ ation record ed. [address] [facility] [address], [place], [address], 11/26/2023 09:28:40 12/26/19 24 12/23/2023 , echo ardio gram No observ ation record ed. [address] [facility] [address] [address], [place], [address], 12/26/2023 16:53:02 Result Notes None recorded. Problems Name Problem SNOMED Code Status Onset Date Resolution Date Notes Provider Name and Address Organization Details Recorded Time Abdominal pain 99989848 Active Not Available [facility] 3 14:49:44 Dysphagia 93773606 Completed Not Available [facility] 3 14:49:45 Nausea 344803371 Active Not Available [facility] 3 14:49:45 History of polyp of colon 868196890 Active Not Available [facility] 3 14:49:45 Viral hepatitis C 97280025 Active Not Available [facility] 3 14:49:45 Anxiety disorder 429022904 Active 2020 Not Available [facility] 3 14:49:44 Gastroeso phageal reflux disease 287785597 Active 2020 Not Available [facility] 3 14:49:44 Family history of cancer of colon 880124757 Active 2020 Not Available [facility] 3 14:49:45 Pain of multiple joints 67865125 Active 2020 Not Available [facility] 3 14:49:45 Chronic pain syndrome 806293980 Active 2020 Not Available [facility] 3 14:49:45 Cataract 167042397 Active 2021 Not Available [facility] 3 14:49:44 Tinnitus 83429942 Active 2021 Not Available [facility] 3 14:49:46 Pharyngit is 778585654 Active 2021 Not Available [facility] 3 14:49:45 Hyperchol esterolem ia 49468408 Active 2021 Not Available [facility] 3 14:49:44 Chronic cough 23867071 Active 2022 Not Available [facility] 3 14:49:46 Fatigue 18996708 Active 2022 Not Available [facility] 3 14:49:46 Recurrent genital herpes simplex 581480038 Active 2022 Ayo Huber MD [address] [facility], [facility] [address], [place], [address] , [facility] [employer] [facility] 3 14:06:14 Excessive gastric reflux 016565474 Active 2022 Cherri Pickens BELL STAFF null, [place] [facility] 3 11:16:29 Pain in right foot 61594747909 9107 Active 2022 Cherri Pickens BELL STAFF null, [place] [facility] [place] [facility] 3 14:50:19 Acquired pes planus of left foot 79430081456 9108 Active 2022 Jarocho Rubi MD [address], [address], [place], [address] , [facility] 3 10:05:39 Tendiniti s of left posterior tibial tendon 32961827801 9100 Active 2022 Jarocho Rubi MD [address], [address], [place], [address] , [facility] 3 10:05:52 Tendiniti s of right posterior tibial tendon 15106536412 9102 Active 2022 Jarocho Rubi MD [address], [address], [place], [address] , [facility] 3 10:06:03 Acquired pes planus of right foot 06724510065 9106 Active 2022 Jarocho Rubi MD [address], [address], [place], [address] , [facility] 3 10:06:25 Disorder of prostate 98131804 Active 2023 Ayo Huber MD [address], [address], [place], [address] , [facility] - [facility] 4 15:59:01 Testicula r hypofunct ion 441142985 Active 2023 Trudy Marie null, [place] [facility] 4 16:02:33 Right flank pain 959090067 Active 2023 Trudy Marie null, [place] [facility] 4 12:33:01 Anemia 399995936 Active 2023 Stacy Montero null, [facility] 4 15:53:49 Benign prostatic hyperplas ia 317340318 Active 2023 Ayo Huber MD [address] [place] [address], [facility] [address], [place], [address] , [facility] 4 17:08:37 Esophagea l dysphagia 32690744 Active 2023 Cherri Pickens CMA null, [facility] 4 16:34:59 Atypical chest pain 728801197 Active 2023 Cherri Pickens CMA null, [facility] 4 14:26:45 Thrombocy tosis 0688189 Active 2024 Cherri Pickens CMA null, [facility] 5 14:56:10 Cobalamin deficienc y 737746845 Active 2024 Cherri Pickens CMA null, [facility] 5 14:56:36 Nasal congestio n 80256674 Active 2024 Trudy Marie null, [facility] 5 17:24:16 Problem Notes None recorded. Procedures Surgical History Date Name Laterality Status Provider Name and Address Organization Details Recorded Time 07/04/19 24 Medicare Wellness CPT Code, subsequent completed Tonya Steinberg RN [facility] 07/04/2023 15:34:01 05/16/18 79 Foot completed Dianne Carranza CNA [facility] 09/30/2022 09:41:04 Knee Replacement completed Not Available [facility] 07/14/2022 14:46:03 colonoscopy completed Not Available [facility] 07/14/2022 14:46:03 procedure on wrist completed Not Available [facility] 07/14/2022 14:46:03 Imaging Results None recorded. Procedure Notes None recorded. Medical Equipment None Reported. Allergies No known drug allergies Medications Name Sig Start Date Stop Date Status Note LastModified by Organization Details LastModified Time amoxicillin 500 mg capsule Take 1 capsule every 8 hours by oral route. active Not Available Not Available No t Available clonidine HCl 0.1 mg tablet TAKE 1 TABLET BY MOUTH TWICE DAILY FOR 7 DAYS 09/03 completed Not Available Not Available Not Available prednisone 10 mg tablet 10/27 completed Not Available Not Available Not Available clindamycin HCl 300 mg capsule TAKE 1 CAPSULE BY MOUTH EVERY 8 HOURS 10/30 completed Not Available Not Available Not Available cetirizine 10 mg tablet TAKE 1 TABLET BY MOUTH TWICE A DAY 05/20 completed Not Available Not Available Not Available ofloxacin 0.3 % eye drops 07/15 completed Not Available Not Available Not Available benzonatate 200 mg capsule Take 1 capsule 3 times a day by oral route. 09/16 completed Not Available Not Available Not Available cimetidine 400 mg tablet TAKE 1 TABLET BY MOUTH TWICE A DAY active Not Available Not Available No t Available valacyclovi r 1 gram tablet TAKE 1 TABLET BY MOUTH EVERY DAY 09/30 completed Not Available Not Available Not Available diclofenac ER 100 mg tablet,exte nded release 24 hr TAKE 1 TABLET BY MOUTH DAILY NEEDED 07/15 completed Not Available Not Available Not Available sucralfate 1 gram tablet TAKE 1 TABLET BY MOUTH FOUR TIMES DAILY 07/11 completed Not Available Not Available Not Available ondansetron HCl 4 mg tablet TAKE 1 TABLET BY MOUTH TWICE DAILY NEEDED FOR NAUSEA active Not Available Not Available No t Available famotidine 40 mg tablet TAKE 1 TABLET BY MOUTH EVERY DAY AT BEDTIME 07/11 completed Not Available Not Available Not Available prednisone 20 mg tablet TAKE 3 TABLETS BY MOUTH ONCE DAILY FOR 3 DAYS, 2 FOR 3 DAYS, 1 FOR 3 DAYS, THEN 1/2 FOR 3 DAYS active Not Available Not Available No t Available acyclovir 400 mg tablet TAKE 1 TABLET BY MOUTH THREE TIMES DAILY 09/30 completed Not Available Not Available Not Available doxepin 10 mg capsule TAKE 1 CAPSULE BY MOUTH EVERY DAY AT BEDTIME active Not Available Not Available No t Available valacyclovi r 500 mg tablet TAKE 1 TABLET BY MOUTH EVERY DAY 05/20 completed Not Available Not Available Not Available hydrocodone 10 mg-acetamin ophen 325 mg tablet TAKE 1 TABLET BY MOUTH EVERY 6 HOURS NEEDED 10/30 completed Not Available Not Available Not Available Morphine Sulfate CR 15 mg tablet,exte nded release Take 1 tablet every 12 hours by oral route. 10/27 completed Not Available Not Available Not Available triamcinolo ne acetonide 0.1 % topical cream APPLY TO RASH ON ARMS/TRUN K(*NOT* TO FACE) 2X/DAY X4 WKS FOR FLARES TAKE 2 WK BREAK BEFORE RESTART 05/20 completed Not Available Not Available Not Available baclofen 20 mg tablet 07/15 completed Not Available Not Available Not Available dexamethaso ne sodium phosphate 0.1 % eye drops INSTILL 1 DROP IN LEFT EYE TWICE DAILY NEEDED 09/16 completed Not Available Not Available Not Available ketorolac 0.5 % eye drops INSTILL 1 DROP IN RIGHT EYE THREE TIMES DAILY FOR 2 WEEKS 12/25 completed Not Available Not Available Not Available prednisone 10 mg tablets in a dose pack Take 1 tab by mouth, 3 times a day for 3 daysTake 1 tab by mouth 2 times a day for 2 daysTake 1 tab by mouth once a day for 1 day 10/27 completed Not Available Not Available Not Available famotidine 20 mg tablet TAKE 1 TABLET BY MOUTH TWICE A DAY 05/20 completed Not Available Not Available Not Available prednisolon e acetate 1 % eye drops,suspe nsion SHAKE LIQUID AND INSTILL 1 DROP IN RIGHT EYE THREE TIMES DAILY FOR 3 WEEKS 12/25 completed Not Available Not Available Not Available tamsulosin 0.4 mg capsule TAKE 1 CAPSULE BY MOUTH DAILY active Not Available Not Available No t Available hydrocodone 7.5 mg-acetamin ophen 325 mg tablet 10/30 completed Not Available Not Available Not Available pantoprazol e 40 mg tablet,devin yed release TAKE 1 TABLET BY MOUTH EVERY DAY IN THE MORNING BEFORE BREAKFAST 2024 active Not Available Not Available Not Avai lable hyoscyamine sulfate 0.125 mg tablet TAKE 1 TABLET BY MOUTH FOUR TIMES A DAY 05/20 completed Not Available Not Available Not Available cyanocobala min (vit B-12) 1,000 mcg/mL injection solution Inject 1 mL every month by subcutane ous route. 2024 active Not Available Not Available Not Avai lable triamcinolo ne acetonide 0.1 % topical ointment APPLY TOPICALLY TO THE AFFECTED AREA THREE TIMES DAILY FOR 7 DAYS 09/30 completed Not Available Not Available Not Available omeprazole 20 mg capsule,del ayed release TAKE 1 CAPSULE BY MOUTH TWICE DAILY 01/29 completed Not Available Not Available Not Available montelukast 10 mg tablet TAKE 1 TABLET BY MOUTH EVERYDAY AT BEDTIME active Not Available Not Available No t Available hydroxyzine HCl 25 mg tablet TAKE 1 OR 2 TABLETS BY MOUTH AT BEDTIME FOR ITCHING 05/20 completed Not Available Not Available Not Available morphine ER 15 mg tablet,exte nded release TAKE 1 TABLET BY MOUTH EVERY 12 HOURS active Not Available Not Available No t Available lorazepam 1 mg tablet TAKE 1 TABLET BY MOUTH THREE TIMES DAILY active Not Available Not Available No t Available levofloxaci n 500 mg tablet TAKE 1 TABLET BY MOUTH EVERY 24 HOURS 09/16 completed Not Available Not Available Not Available zolpidem 10 mg tablet TAKE 1 TABLET BY MOUTH AT BEDTIME NEEDED FOR INSOMNIA active Not Available Not Available No t Available methylpredn isolone 4 mg tablets in a dose pack FOLLOW PACKAGE DIRECTION S 12/25 completed Not Available Not Available Not Available doxycycline hyclate 100 mg tablet TAKE 1 TABLET BY MOUTH TWICE DAILY 09/30 completed Not Available Not Available Not Available buspirone 15 mg tablet TAKE 1 TABLET BY MOUTH TWICE DAILY active Not Available Not Available No t Available levocetiriz ine 5 mg tablet TAKE 1 TABLET BY MOUTH EVERYDAY AT BEDTIME active Not Available Not Available No t Available lidocaine 5 % topical ointment APPLY 1 GRAM TOPICALLY TO THE AFFECTED AREA DAILY FOR PAIN 07/15 completed Not Available Not Available Not Available Hysingla ER 30 mg tablet, crush resistant, extended release TAKE 1 TABLET BY MOUTH EVERY 24 HOURS FOR 7 DAYS 10/30 completed Not Available Not Available Not Available Hysingla ER 40 mg tablet, crush resistant, extended release TAKE 1 TABLET BY MOUTH EVERY 24 HOURS FOR 30 DAYS 10/30 completed Not Available Not Available Not Available Narcan 4 mg/actuatio n nasal spray USE NASALLY DIRECTED FOR 1 DAY active Not Available Not Available No t Available Xtampza ER 9 mg capsule sprinkle TAKE 1 CAPSULE BY MOUTH EVERY 12 HOURS FOR 10 DAYS 07/15 completed Not Available Not Available Not Available Xiidra 5 % eye drops in a dropperette INSTILL 1 DROP INTO BOTH EYES TWICE A DAY 05/20 completed Not Available Not Available Not Available ID NOW COVID-19 Test Kit TEST DIRECTED TODAY 07/15 completed Not Available Not Available Not Available Fluzone High-Dose Quad 202021 (PF) 240 mcg/0.7 mL IM syringe PHARMACIS T ADM 0.7ML IM UTD 09/16 completed Not Available Not Available Not Available Tyrvaya 0.03 mg/spray nasal spray USE 1 SPRAY IN EACH NOSTRIL TWICE DAILY 07/11 completed Not Available Not Available Not Available Vitals Date Recorded Body height Body mass index (BMI) Body weight Heart rate Body temperature Oxygen saturation Oxygen saturation in Arterial blood by Pulse oximetry Systolic And Diastolic Provider Name and Address Organization Details Last Updated DateTime 4 187.96 cm 25.2 kg/m2 82062.1 g 71 /min 97 [degF] 98 % 98 % 112/64 mm[Hg] [facility] 4 15:28:30 Date Recorded Pain severity - 0-10 verbal numeric rating [Score] - Reported Provider Name and Address Organization Details Last Updated DateTime 07/04/2023 4 Tonya Steinberg RN [employer] [facility] 07/04/2023 15:34:19 Date Recorded Body height Body mass index (BMI) Body weight Heart rate Body temperature Oxygen saturation Oxygen saturation in Arterial blood by Pulse oximetry Systolic And Diastolic Provider Name and Address Organization Details Last Updated DateTime 5 187.96 cm 24.3 kg/m2 45016.7 5 g 73 /min 97 [degF] 96 % 96 % 118/72 mm[Hg] [employer] 5 12:06:18 Date Recorded Body height Body mass index (BMI) Body weight Heart rate Body temperature Oxygen saturation Oxygen saturation in Arterial blood by Pulse oximetry Systolic And Diastolic Provider Name and Address Organization Details Last Updated DateTime 5 180.34 cm 26.6 kg/m2 45458.1 4 g 69 /min 97 [degF] 97 % 97 % 120/78 mm[Hg] [email or web address] [facility] 5 15:04:20 Date Recorded Body height Body mass index (BMI) Body weight Heart rate Body temperature Oxygen saturation Oxygen saturation in Arterial blood by Pulse oximetry Systolic And Diastolic Provider Name and Address Organization Details Last Updated DateTime 4 187.96 cm 24.5 kg/m2 26768.3 5 g 63 /min 97.6 [degF] 98 % 98 % 120/80 mm[Hg] Cata MatthewDENISE [facility] [employer] [facility] 4 17:04:10 Date Recorded Body height Body mass index (BMI) Body weight Heart rate Body temperature Oxygen saturation Oxygen saturation in Arterial blood by Pulse oximetry Systolic And Diastolic Provider Name and Address Organization Details Last Updated DateTime 4 187.96 cm 24.5 kg/m2 13194.1 4 g 77 /min 97 [degF] 98 % 98 % 128/70 mm[Hg] DENISE Ordonez [facility] [employer] [facility] 4 14:36:53 Social History Question Answer Notes LastModified by VISUALPLANTat ion Details LastModified Time Tobacco Smoking Status Never Smoker Not Available [facility] 07/14/2022 14:45:19 Do You Have An Advance Directive? No MIGRATION.[id number] Information not available 07/14/2022 Do You Wear A Helmet When Biking? No MIGRATION.69619 62177 Information not available 07/14/2022 Are You Blind Or Do You Have Difficulty Seeing? No MIGRATION.89306 99870 Information not available 07/14/2022 What Is Your Level Of Caffeine Consumption? Occasional MIGRATION.17671 17539 Information not available 07/14/2022 How Much Tobacco Do You Chew? None MIGRATION.98939 21851 Information not available 07/14/2022 In The 14 Days Before Symptom Onset, Have You Had Close Contact With A Laboratory-confir med COVID-19 While That Case Was Ill? No MIGRATION.13437 61462 Information not available 07/14/2022 In The 14 Days Before Symptom Onset, Have You Had Close Contact With A Person Who Is Under Investigation For COVID-19 While That Person Was Ill? No MIGRATION.54974 67472 Information not available 07/14/2022 Are You Deaf Or Do You Have Serious Difficulty Hearing? No MIGRATION.33752 08330 Information not available 07/14/2022 What Type Of Diet Are You Following? REGULAR MIGRATION.07210 68315 Information not available 07/14/2022 Have There Been Any Changes To Your Family Or Social Situation? No MIGRATION.35219 42390 Information not available 07/14/2022 What Is The Fluoride Status Of Your Home? Unknown MIGRATION.34035 09949 Information not available 07/14/2022 Are There Any Guns Present In Your Home? Yes MIGRATION.66454 35596 Information not available 07/14/2022 Do You Use Insect Repellent Routinely? No MIGRATION.85469 64768 Information not available 07/14/2022 Where Do You Live? [place] MIGRATION.63137 19837 Information not available 07/14/2022 Guns Present In The Home? Yes [email or web address] Information not available 07/04/2023 Are You Able To Care For Yourself? Yes [email or web address] Information not available 07/04/2023 Are You Blind Or Do Yo Have Difficulty Seeing? No [email or web address] Information not available 07/04/2023 Are You Deaf Or Do You Have Serious Difficulty Hearing? No [email or web address] Information not available 07/04/2023 Live Alone Of With Others? With Others [email or web address] Information not available 07/04/2023 Do You Have A Medical Power Of Blind Hooker? No MIGRATION.65145 43548 Information not available 07/14/2022 What Was The Date Of Your Most Recent Tobacco Screening? 07/04/2023 [email or web address] Information not available 07/04/2023 Do You Have Any Pets? No MIGRATION.21445 00450 Information not available 07/14/2022 Do You Use Your Seat Belt Or Car Seat Routinely? Yes MIGRATION.81325 87316 Information not available 07/14/2022 Do You Have Smoke And Carbon Monoxide Detectors In Your Home? Yes MIGRATION.74304 81532 Information not available 07/14/2022 Are You Passively Exposed To Smoke? No MIGRATION.26500 00553 Information not available 07/14/2022 Are There Any Smokers In Your House? No MIGRATION.49250 87530 Information not available 07/14/2022 How Much Tobacco Do You Smoke? No MIGRATION.20802 01607 Information not available 07/14/2022 Do You Use Sunscreen Routinely? No MIGRATION.70609 44933 Information not available 07/14/2022 Have You Recently Traveled Abroad? No MIGRATION.32141 40614 Information not available 07/14/2022 Do You Have Difficulty Walking Or Climbing Stairs? No MIGRATION.53721 35322 Information not available 07/14/2022 Do You Have Any Dietary Restrictions? No MIGRATION.69017 97410 Information not available 07/14/2022 Sex: Unknown Functional Status Question Answer Note LastModified by Organizat ion Details LastModified Time What is your level of alcohol consumption? Occasional MIGRATION.502946 4824 Information not available 07/14/2022 Do you or have you ever used smokeless tobacco? Never used smokeless tobacco MIGRATION.655419 8084 Information not available 07/14/2022 Do you have access to reliable transportation? No MIGRATION.708222 7214 Information not available 07/14/2022 Are you able to walk independently without assistance or assistive devices? YESWOREST MIGRATION.575102 6025 Information not available 07/14/2022 Do you have difficulty doing errands alone? No MIGRATION.058059 6308 Information not available 07/14/2022 Are you able to care for yourself independently? Yes MIGRATION.661437 4266 Information not available 07/14/2022 What is your occupation? unemployed MIGRATION.160063 2332 Information not available 07/14/2022 Do you have difficulty dressing, bathing, grooming, or toileting? No MIGRATION.542694 0086 Information not available 07/14/2022 Do you or have you ever used e-cigarettes or vape? Never used electronic cigarettes MIGRATION.156462 4532 Information not available 07/14/2022 What is your exercise level? Moderate MIGRATION.649302 7728 Information not available 07/14/2022 Mental Status Question Answer Note LastModified by Organizat ion Details LastModified Time Do you have difficulty concentrating, remembering or making decisions? No MIGRATION.[id number] Information not available 07/14/2022 Family History Relationship Description Onset Age of this Age Resolved Age Notes LastModified by Organization Details LastModified Time Mother Hypertensive disorder MIGRATION.[id number] Not available 07/14/2022 14:46:03 Father Alzheimer's disease 82 MIGRATION.112 [id number] Not available 07/14/2022 14:46:03 Brother Malignant tumor of colon MIGRATION.233 [id number] Not available 07/14/2022 14:46:03 Brother Intracranial hemorrhage MIGRATION.374 [id number] Not available 07/14/2022 14:46:03 Brother History of poliomyeliti s MIGRATION.852 [id number] Not available 07/14/2022 14:46:03 Notes:Five brothers one with CA of colon, ICH and hx of polio. . Others living and in good health. Medical History Condition Response NERVE DISEASE N BLINDNESS N RHEUMATIC FEVER N KIDNEY STONES N BLADDER PROBLEMS N MRSA N OTHER # 1 N POLIO N LUNG DISEASE/DISORDER N HISTORY OF DRUG ABUSE N RADIATION / CHEMOTHERAPY N COPD N Other # 2 N BLOOD DISEASES N EAR OR HEARING PROBLEMS N MUMPS N SHINGLES N BOWEL PROBLEMS N DEPRESSION (INCLUDING POST ) N STROKE/TIA N ULCERS N BENIGN PROSTATIC HYPERPLASIA N MEASLES N HYPOTENSION N MYOCARDIAL INFARCTION N OBESITY N GERD/NAUSEA N ANEURYSM N URINARY/BLADDER/KIDNEY PROBLEMS N CORONARY ARTERY DISEASE (CAD) N ADDICTION CONCERNS N Impotence N ENDOMETRIOSIS N USE OF BLOOD THINNERS N SKIN PROBLEMS N GASTROINTESTINAL DISORDER N PERIPHERAL VASCULAR DISEASE N MUSCLE,JOINT OR BONE PROBLEMS N GASTROINTESTINAL BLEEDING N BLOOD CLOTS N ASTHMA N CATARACTS N ERECTILE DYSFUNCTION N VARICOSITIES N GI PROBLEMS N Low Testosterone N INFERTILITY N AIDS/HIV N CHEMOTHERAPY / RADIATION N LIVER DISEASE N MALE HYPOGONADISM N HYPERTENSION N Deficiency N TOURETTE'S N ANXIETY DISORDER Y BLOOD TRANSFUSION N ANEMIA/BLOOD DISORDER N CHRONIC EAR INFECTIONS N BRONCHITIS N TUBERCULOSIS N GLAUCOMA N FOOT PROBLEM N DIVERTICULITIS N SLEEP APNEA N CHICKENPOX N INFECTIOUS DISEASE N PROSTATE N HEART ARRHYTHMIA N INSOMNIA N HIGH CHOLESTEROL / HYPERLIPIDEMIA N EYE PROBLEMS N HYPERTHYROIDISM N EDEMA N CHRONIC PAIN SYNDROME N HYPOTHYROIDISM N CONSTIPATION N CAROTID BLOCKAGE N BACK / NECK PROBLEMS Y HAVE YOU BEEN HOSPITALIZED OR SEEN IN [facility] IN THE PAST YEAR ? N ATHEROSCLEROSIS N BREAST PROBLEMS N DIALYSIS N ECZEMA N OSTEOPOROSIS N ARTHRITIS N NO SIGNIFICANT PAST MEDICAL HISTORY N APPENDICITIS N DIABETES, TYPE N BAD TEETH N ENT N HEARTBURN / REFLUX N AUTISM SPECTRUM DISORDER (ASD) N HEPATITIS / LIVER DISEASE N GOUT N SLEEP DISORDER N ALZHEIMER'S DISEASE N Brain Problems N DEMENTIA N HERPES N SEIZURES/EPILEPSY N HEADACHES/MIGRAINES Y VASCULAR DISEASE N PACEMAKER N Blood Disorder N DIZZINESS N HEART DISEASE/HEART PROBLEMS N KIDNEY DISEASE N MULTIPLE SCLEROSIS N CANCER: SPECIFY N CARDIAC ARRHYTHMIA N ATRIAL FIBRILLATION N Gall Stones N PULMONARY EMBOLISM N AUTOIMMUNE DISEASE N Immunizations Vaccine Type Date Status Note Provider [facility] e and Address Organization Details Recorded Time SARS-COV-2 (COVID-19) vaccine, UNSPECIFIED 1 completed Not Available [facility] 07/14/2022 14:52:51 SARS-COV-2 (COVID-19) vaccine, UNSPECIFIED 1 completed Not Available [facility] 07/14/2022 14:52:51 pneumococcal polysaccharide PPV23 2 completed Not Available [facility] 07/14/2022 14:52:52 Pneumococcal conjugate PCV 13 1 completed Not Available [facility] 07/14/2022 14:52:52 Past Encounters Encounter ID Performer Location Encounter Start Date Encounter Closed Date Diagnosis/Indication Diagnosis SNOMED-CT Code Diagnosis ICD10 Code Diagnosis IMO Codes Diagnosis Note [id number] Ayo Huber MD [facility] [address] [place] [address] , [place] [address] 09/16/2020 00:00:00 09/16/2020 11:56:40 [id number] _ATHN_MIGR ATION_1 _ATHENA_M IGRATION_ DEFAULT_1 _1 , 09/24/2020 00:00:00 09/24/2020 11:26:37 [id number] Ayo Huber MD [facility] Internal Med [facility] [address] [address] 01/29/2021 00:00:00 01/29/2021 11:36:03 [id number] Ayo Huber MD [facility] Internal Med [facility] [address] [address] 07/15/2021 00:00:00 07/15/2021 10:37:02 [id number] Jarocho Rubi MD [facility] [place] [address] [facility] [address] [place] [address] 11/05/2021 00:00:00 11/05/2021 13:50:35 [id number] Ayo Huber MD [facility] [address] [address] 01/13/2022 00:00:00 01/13/2022 11:07:26 [id number] Ayo Huber [place] [facility] [address] [address] 06/23/2022 00:00:00 06/23/2022 15:34:38 [id number] Jarocho Rubi MD [facility] [address] [place] [address] 09/30/2022 09:27:47 09/30/2022 10:12:24 Pain in right foot 3237127591 13927 M79.671 Tendinitis of right posterior tibial tendon 0144935180 31344 M76.821 Acquired p es planus of right foot 9258969013 08811 M21.41 [id number] Ayo Huber MD [facility] [address] [address] 10/27/2022 15:13:42 10/27/2022 16:01:33 Chronic pain syndrome 938927851 G89.4 [id number] Ayo Huber MD [facility] [place] [facility] [address] [address] 07/04/2023 15:17:30 07/04/2023 16:11:38 Adult health examination 495769052 Z00.00 Screening for disorder 610972979 Z13.9 Hypercholesterolemia 136 88096 E78.00 Chronic pain syndrome 37 5582925 G89.4 Abdominal pain 77804304 R10.9 Disorder of prostate 302 84344 N42.9 [id number] Ayo Huber MD [facility] [address] [address] 12/26/2023 16:57:55 12/26/2023 17:20:07 Chronic pain syndrome 244198564 G89.4 Gastroesop hageal reflux disease 283929156 K21.9 Benign pro static hyperplasia 444772656 N40.1 Testicular hypofunction 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 [id number] Ayo Huber MD [facility] [address] [address] 04/30/2024 14:33:28 04/30/2024 14:53:40 Chronic pain syndrome 100333609 G89.4 Gastroesop hageal reflux disease 655367091 K21.9 Hypercholesterolemia 136 80008 E78.00 History of polyp of colon 310477689 Z86.0100 [id number] Ayo Huber MD [facility] Internal Med [facility] [address] [address] 07/11/2024 11:49:39 07/11/2024 12:34:08 Chronic pain syndrome 615312337 G89.4 Gastroesop hageal reflux disease 237849476 K21.9 Benign pro static hyperplasia 810893618 N40.1 [id number] Ayo Huber MD [facility] Internal Med [facility] [address] [place] [address] 09/03/2024 14:44:48 09/03/2024 15:23:15 Chronic pain syndrome 374146562 G89.4 Gastroesop hageal reflux disease 834418586 K21.9 Hypercholesterolemia 136 24802 E78.00 Health Concerns Section Related Observation LastModified by Organization Detai ls LastModified Time None Recorded Concern Status LastModified by Organization Details LastModified Time None Recorded Advance Directives Directive N: Payers Insurance Date Sequence Insurance Name Policy Number Policy Godfrey Covered Member ID Godfrey Member ID Guarantor Name 09/07/2024 1 [facility] (MEDICARE REPLACEMENT/A DVANTAGE - HMO) [id number] Joi Stubbs [id number] Joi Stubbs Notes Date Note Type Note Provider Name and Address Organization Details Recorded Time 07/04/2023 text/html Patient Name: Joi WongFredoate Of Service: Tuesday ( 07.04.2023 ): 1955 Age: 67 Chief Complaint: Addressed in HPI Problems or conditions discussed in the HPI were the only ones reviewed during the encounter.Only social and family history addressed in the HPI were reviewed during this encounter. Attendant(s): NoneConstitutional and Systemic Symptoms:none Medication Reconciliation: from medication list. History of Present Illness Reviewed the findings of the preventative health visit. Addressed all areas with the patient, patient's family or caregivers. Preventative examinations and testing immunizations - vaccinations, colonic neoplasm screening and PSA all reviewed and ordered where patient was amenable to the recommendations. Cognitive function was normal. Depression addressed and where necessary medications were adjusted or instituted. End of life and living will briefly discussed with patient and where these can be filled out and legally executed. Other blood and imaging studies were ordered if considered necessary. Other recommendations may be found in the encounter note. #1. Complaining of persistent right flank pain. Denies any nausea, vomiting etc.. Had ultrasound of the abdomen which failed to disclose any significant anomalies in this area with the exception of some steatosis of the liver which was not be causing any discomfort. Denies any history of any associated nausea, vomiting or change in bowel habits or change in urine color. There is no radiation of the pain around to the front. May need to consider doing a CT scan the abdomen with oral contrast for further evaluation.: #2. Type II Hypercholesterolaemia: Currently taking medication and tolerating well. No interval complaints of any muscle pain or arthralgia. No significant liver changes with medications. Last lipid panel: fair control. Therapy reviewed regarding treatment of cholesterol management and include diet. #3. Chronic pain management for chronic knees, hips and generalized joint pain Since last examination somewhat improved Interval Testing: noneHas tried NSAIDS partial relief requiring additional medication. Pain Description: constant, exacerbated by activity and interferes with enjoyment and ability to perform activities of daily living. 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 Current Average Morphine Milligram Approximate Equivalent: 50 mg approximated if taking full dosage daily. Recommend: NA.Benzodiazepines or other hypnotics: no.Alternative pain management modalities (acupuncture - behavior therapy- additional PT - SNRIs) have been discussed and have either been tried in the past or not acceptable alternatives to patient or not available in our location.Will kept medications the same.Urine Testing: not indicated and this time.Controlled substance database yes and no discrepancies or multiple prescribers noted. Pill counts when available have been acceptable. No other signs of any abuse.Patient reports condition is stable and is able to function with the medication. Denies any misuse or adverse effects.TREATMENT OBJECTIVE: Enhance ability to manage pain independently, improved function and sustain quality of life. Recommendations or alternative therapies and lifestyle changes are discussed on each visit. Has shown improvement inf functionality. Has been educated on the side effects,risks and any black box warnings. Has verbalized the dangers of some of the medications regarding driving and cooperating heavy machinery and have advised against this. Active Medication ListMorphine 50 MG CAPSULE, EXTENDED RELEASE One DailyFlomax .4 MG CAPSULE Once DailtPantoprazole 20 MG (TABLET, DELAYED RELEASE - ORAL) One Daily Vaccination and Idyqwotmdvge0999-15 Fspnxliug9928-63 Covid Gdcjze8697-73 Prevnar 13 Gc Surgical Rzsqurd7696-94 Jvmpuopfdab1419-52 Rt. Jqscz0411-83 Rt. 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 . Others living and in good health. TEST RESULT RANGE UNITSCBC/COMPLETE BLD COUNT W/DIFF Date: 06/28/2023WHITE BLOOD CELLS 4.8 4.2-10.8 X10'3/ULHEMOGLOBIN 13.8 13.2-17.0 G/DLHEMATOCRIT 43.0 39.3-50.0 %PLATELETS 107 150-400 X10'3/ULCOMPREHENSIVE METABOLIC PANEL Date: 06/28/2023SODIUM 139 137-145 MMOL/LPOTASSIUM 4.5 3.5-5.1 MMOL/LGLUCOSE 94 70-99 MG/DLBUN 17 8-19 MG/DLCREATININE 0.77 0.66-1.25 MG/DLGFR >60ALKALINE PHOSPHATASE 72 38-126 U/LALANINE AMINOTRANSFERASE 35 0-50 U/LASPARTATE AMINOTRANSFERASE 44 15-46 U/LBILIRUBIN, TOTAL 0.40 0.20-1.30 MG/DLCALCIUM 9.3 8.4-10.2 MG/DLLIPASE SERUM Date: 06/28/2023LIPASE 100 23-300 U/LAMYLASE SERUM Date: 06/28/2023MYLASE 47 30-110 U/L Ayo Huber MD [address] [facility], [facility] [address], [place], [address], [place] [facility] 07/04/2023 16:00:05 12/26/2023 text/html Patient Name: Joi Young Of Service: Tuesday ( 12.26.2023 ): 1955 Age: 68 There has been approximately a 3 lb weight gain since 10/27/2022. This represents approximately a 1.6% change in weight. Weight change attributable to lifestyle changes. Vital Signs:Blood Pressure: Sitting Rt. Arm 120/80Pulse: Sitting 63 /min and RegularRespiratory Rate: 14Height 67 in or 1.7 mWeight 190.5 lb or 86.4 kgBMI 29.8Temperature: 97.6 F or 36.4 CPulse Oximetry: 98 % at rest on no oxygen Chief Complaint: Addressed in HPI Problems or conditions discussed in the HPI were the only ones reviewed during the encounter.Only social and family history addressed in the HPI were reviewed during this encounter. Attendant(s): NoneConstitutional and Systemic Symptoms:none Medication Reconciliation: from medication list. [id number]: Regular stress test Norris protocol normal exercise response with no ST segment or T-wave changes suggestive of any ischemia. Essentially normal stress test 12-23-2023: Echocardiogram demonstrates an estimated ejection fraction of 60%. Mildly thickened aortic valve leaflets are noted. No evidence of any aortic insufficiency. Normal-appearing tricuspid valve leaflets. Estimated peak ppulmonary arterial pressure 21 mmHg. History of Present Illness #1. Hx of esophageal reflux currently stable. Hx of Complications: none The severity, duration and intensity of symptoms have remained the same. Frequency: most meals and nocturnal Treatment consists medications taken on a regular basis. Current therapy includes Pantoprazole. There has been no nausea, eructation, vomiting, hematemesis, dysphagia, velopharyngeal insufficiency and odynophagia. No change in he frequency or intensity of symptoms. Has had no melena. Has had no . Discussed use of H2 antagonists NA. #2. Hx of BPH currently stable. No change in strength or initiation of urinary stream. No post voiding problems. No hx of any fever or chills. Currently taking Flomax. #3. Testicular Hypofunction: Stable. Libido and energy levels are good. No significant problems with performing daily activities. Taking medication: no medication. No other systemic complaints related to hypogonadism. #4. Chronic pain management for chronic generalized joint pain Since last examination somewhat improved Interval Testing: noneHas tried NSAIDS partial relief requiring additional medication. Pain Description: constant, exacerbated by activity and interferes with enjoyment and ability to perform activities of daily living. 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 Current Average Morphine Milligram Approximate Equivalent: 50 mg approximated if taking full dosage daily. Recommend: NA.Benzodiazepines or other hypnotics: no.Alternative pain management modalities (acupuncture - behavior therapy- additional PT - SNRIs) have been discussed and have either been tried in the past or not acceptable alternatives to patient or not available in our location.Will kept medications the same.Urine Testing: performed by pain management.Controlled substance database no. Pill counts when available have been acceptable. No other signs of any abuse.Patient reports condition is stable and is able to function with the medication. Denies any misuse or adverse effects.TREATMENT OBJECTIVE: Enhance ability to manage pain independently, improved function and sustain quality of life. Recommendations or alternative therapies and lifestyle changes are discussed on each visit. Has shown improvement inf functionality. Has been educated on the side effects,risks and any black box warnings. Has verbalized the dangers of some of the medications regarding driving and cooperating heavy machinery and have advised against this. Active Medication ListMorphine 50 MG CAPSULE, EXTENDED RELEASE One DailyFlomax .4 MG CAPSULE Once DailtSucralfate 1 G TABLET One QidPantoprazole 20 MG (TABLET, DELAYED RELEASE - ORAL) One Daily Vaccination and Fddmdyzevprl7053-17 Wofopsegf2346-14 Covid Xhmkxb6793-39 Prevnar 13 Gc Surgical Tyclboa9163-27 Qgqwtmizbxx9578-46 Rt. Zmnwd3710-32 Rt. 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 . Others living and in good health. Ayo Huber MD [address] [facility], [facility] [address], [place], [address], [place] [facility] [email or web address] 12/26/2023 17:15:40 04/30/2024 text/html Patient Name: Joi Young Of Service: Tuesday ( 04.30.2024 ): 1955 Age: 68 Vital Signs:Blood Pressure: Sitting Rt. Arm 128/70Pulse: Sitting 77 /min and RegularRespiratory Rate: 16Height 67 in or 1.7 mWeight 191 lb or 86.6 kgBMI 29.9Temperature: 97 F or 36.1 CPulse Oximetry: 98 % at rest on no oxygen Chief Complaint: Addressed in HPI Problems or conditions discussed in the HPI were the only ones reviewed during the encounter.Only social and family history addressed in the HPI were reviewed during this encounter. Attendant(s): NoneConstitutional and Systemic Symptoms:none Medication Reconciliation: from medication list. [id number]: Regular stress test Norris protocol normal exercise response with no ST segment or T-wave changes suggestive of any ischemia. Essentially normal stress test 12-23-2023: Echocardiogram demonstrates an estimated ejection fraction of 60%. Mildly thickened aortic valve leaflets are noted. No evidence of any aortic insufficiency. Normal-appearing tricuspid valve leaflets. Estimated peak ppulmonary arterial pressure 21 mmHg. History of Present Illness #1. Hx of esophageal reflux currently stable. Hx of Complications: none The severity, duration and intensity of symptoms have improved. Frequency: most meals Treatment consists medications taken on a regular basis. Current therapy includes Pantoprazole and Sucralfate. There has been no nausea, eructation, vomiting, hematemesis, dysphagia, velopharyngeal insufficiency and odynophagia. No change in he frequency or intensity of symptoms. Has had no melena. Has had no . Discussed use of H2 antagonists and the possibility of trying to reduce the frequency of the use of any PPI inhibitors and try H2 antagonists to see if symptoms can be controlled with lease intensive therapy since a number of complications are associated with chronic prolonged use of PPI inhibitors. #2. History of hypercholesterolaemia: History of the high cholesterol. Not taking any medications and being controlled by diet. No interval complaints of any chest pain, shortness of breath, orthopnea or other cardiovascular complaints. Last lipid panel: suboptimal by ATP III guidelines #3. Colon polyps: Hx of colon polyps. No interval complaints of any bleeding or change in bowel habits. Last colonoscopy was five years ago. #4. Chronic pain management for chronic lumbar, knees, hips and generalized joint pain Since last examination somewhat improved Interval Testing: noneHas tried NSAIDS partial relief requiring additional medication. Pain Description: constant, exacerbated by activity and interferes with enjoyment and ability to perform activities of daily living. 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 Current Average Morphine Milligram Approximate Equivalent: 50 mg approximated if taking full dosage daily. Recommend: NA.Benzodiazepines or other hypnotics: no.Alternative pain management modalities (acupuncture - behavior therapy- additional PT - SNRIs) have been discussed and have either been tried in the past or not acceptable alternatives to patient or not available in our location.Will kept medications the same.Urine Testing: performed by pain management.Controlled substance database yes and no discrepancies or multiple prescribers noted. Pill counts when available have been acceptable. No other signs of any abuse.Patient reports condition is stable and is able to function with the medication. Denies any misuse or adverse effects.TREATMENT OBJECTIVE: Enhance ability to manage pain independently, improved function and sustain quality of life. Recommendations or alternative therapies and lifestyle changes are discussed on each visit. Has shown improvement inf functionality. Has been educated on the side effects,risks and any black box warnings. Has verbalized the dangers of some of the medications regarding driving and cooperating heavy machinery and have advised against this. Active Medication ListMorphine 50 MG CAPSULE, EXTENDED RELEASE One DailyFlomax .4 MG CAPSULE Once DailtSucralfate 1 G TABLET One QidPantoprazole 20 MG (TABLET, DELAYED RELEASE - ORAL) One Daily Vaccination and Immunization(X) 2020-09 COVID PFIZER( ) 2020-05 PREVNAR 13 GC( ) 2021-12 PNEUMOVAX Surgical Ugtdyok8316-92 Cmuknrylqjj5189-50 Rt. Rkjnr7961-78 Rt. Knee Replacement Preventative Testing( ) 02/22/2024 Upper Endoscopy 02/21/2059( ) 07/13/2023 Albumin 4.4 G/DL( ) 07/13/2023 PSA 0.25 NG/ML N 07/13/2025( ) 06/22/2021 Ophthalmology(X) 01/18/2019 Colonoscopy (5 Years) 01/19/2024 Social HistoryDoes not smokeDrinks sociallyWorks in heating and cooling Family TjejdgcLhrczz29+ HTNFather 82 hx of Alzheimer'sFive brothers one with CA of colon, ICH and hx of polio. . Others living and in good health. Ayo Huber MD [address] [facility], [facility] [address], [place], [address], [facility] [email or web address] 04/30/2024 14:47:37 09/03/2024 text/html Patient Name: Joi Young Of Service: Tuesday ( 09.03.2024 ): 1955 Age: 68 There has been approximately a 1.5 lb weight gain since 07/11/2024. This represents approximately a .8% change in weight. Weight change attributable to lifestyle changes. Vital Signs:Blood Pressure: Sitting Rt. Arm 120/78Pulse: Sitting 69 /min and RegularRespiratory Rate: 16Height 71 in or 1.8 mWeight 191 lb or 86.6 kgBMI 26.6Temperature: 97 F or 36.1 CPulse Oximetry: 97 % at rest on no oxygen Chief Complaint: Addressed in HPI Problems or conditions discussed in the HPI were the only ones reviewed during the encounter.Only social and family history addressed in the HPI were reviewed during this encounter. Attendant(s): NoneConstitutional and Systemic Symptoms:none Medication Reconciliation: from medication list. [id number]: Regular stress test Norris protocol normal exercise response with no ST segment or T-wave changes suggestive of any ischemia. Essentially normal stress test 12-23-2023: Echocardiogram demonstrates an estimated ejection fraction of 60%. Mildly thickened aortic valve leaflets are noted. No evidence of any aortic insufficiency. Normal-appearing tricuspid valve leaflets. Estimated peak ppulmonary arterial pressure 21 mmHg. History of Present Illness #1. Hx of esophageal reflux currently stable. Hx of Complications: none The severity, duration and intensity of symptoms have improved. Frequency: most meals Treatment consists medications taken on a regular basis. Current therapy includes no medication. There has been no nausea, eructation, vomiting, hematemesis, dysphagia, velopharyngeal insufficiency and odynophagia. No change in he frequency or intensity of symptoms. Has had no melena. Has had no . Discussed use of H2 antagonists NA. #2. History of hypercholesterolaemia: History of the high cholesterol. Not taking any medications and being controlled by diet. No interval complaints of any chest pain, shortness of breath, orthopnea or other cardiovascular complaints. Last lipid panel: no testing since starting on medication #3. Chronic pain management for chronic lumbar, knees and hips Since last examination somewhat improved Interval Testing: noneHas tried NSAIDS partial relief requiring additional medication. Pain Description: constant - intermittently exacerbated. 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 as prescribed with no evidence of abuse or self prescribing. Current Average Morphine Milligram Approximate Equivalent: 30 mg approximated if taking full dosage daily. Recommend: NA.Benzodiazepines or other hypnotics: no.Alternative pain management modalities (acupuncture - behavior therapy- additional PT - SNRIs) have been discussed and have either been tried in the past or not acceptable alternatives to patient or not available in our location. Once again address the possibility that these medications may cause some cognitive impairment at times. Has noticed no cognitive impairment. Instructed to let us know if any of the conditions arise I will need to consider reducing or stopping certain medication.Will kept medications the same.Urine Testing: not indicated and this time.Controlled substance database yes and no discrepancies or multiple prescribers noted. Pill counts when available have been acceptable. No other signs of any abuse.Patient reports condition is stable and is able to function with the medication. Denies any misuse or adverse effects.TREATMENT OBJECTIVE: Enhance ability to manage pain independently, improved function and sustain quality of life. Recommendations or alternative therapies and lifestyle changes are discussed on each visit. Has shown improvement inf functionality. Has been educated on the side effects,risks and any black box warnings. Has verbalized the dangers of some of the medications regarding driving and cooperating heavy machinery and have advised against this. Active Medication ListMorphine 15 MG TABLET One Twice A DayFlomax .4 MG CAPSULE Once DailtPantoprazole 20 MG (TABLET, DELAYED RELEASE - ORAL) One Daily Vaccination and Immunization(X) 2020-09 COVID PFIZER( ) 2020-05 PREVNAR 13 GC( ) 2021-12 PNEUMOVAX Surgical Qwvyjra2930-25 Pkojnlzqxad2366-36 Rt. Ccgcs1766-30 Rt. Knee Replacement Preventative Testing( ) 07/12/2024 Albumin 4.6 G/DL N( ) 02/22/2024 Upper Endoscopy( ) 07/13/2023 PSA 0.25 NG/ML N 07/13/2025( ) 06/22/2021 Ophthalmology(X) 01/18/2019 Colonoscopy (5 Years) 01/19/2024 Social HistoryDoes not smokeDrinks sociallyWorks in heating and cooling Family LdfhucuAgrodi10+ HTNFather 82 hx of Alzheimer'sFive brothers one with CA of colon, ICH and hx of polio. . Others living and in good health. TEST RESULT RANGE UNITSCBC (INCLUDES DIFF/PLT) Date: 07/12/2024WHITE BLOOD CELL COUNT 4.8 3.8-10.8 THOUSAND/ULHEMOGLOBIN 14.4 13.2-17.1 G/DLHEMATOCRIT 44.7 38.5-50.0 %PLATELET COUNT 125 140-400 THOUSAND/ULCOMPREHENSIV E METABOLIC PANEL, PLASMA Date: 07/12/2024SODIUM 138 135-146 MMOL/LPOTASSIUM 4.2 3.4-4.8 MMOL/LGLUCOSE 109 65-139 MG/DLUREA NITROGEN (BUN) 15 7-25 MG/DLCREATININE 0.89 0.70-1.35 MG/DLEGFR 93 > OR = 60 ML/MIN/1.15X7LACZACWC PHOSPHATASE 59 35-144 U/LAST 27 10-35 U/LALT 21 9-46 U/LT4, FREE Date: 07/12/2024T4, FREE 1.1 0.8-1.8 NG/DLTSH Date: 07/12/2024TSH 2.01 0.40-4.50 MIU/LTESTOSTERONE, TOTAL, MS Date: 06/25/2024TESTOSTERONE, TOTAL, MS [phone] NG/DL Ayo Huber MD [address] [facility] [address], [place], [address], [place] [facility] 09/03/2024 15:18:51
--- OUTSIDE RECORDS SUMMARY | 2025-02-11 09:39 | XMS_ITS | Clinical Summary ---
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 Optics Manufacturing Technician Name Role Phone Unavailable Primary Care Provider Unavailabl e Allergies No known active allergies Encounters Date Type Department Care Team Description 02/08/2025 7:33 AM CDT - 02/08/2025 11:59 PM CDT Hospital Encounter [facility] [place] Scan [id number] [place] [address] Rajeev Diamond MD Discharge Disposition: Home or Self Care 02/08/2025 7:32 AM CDT - 02/08/2025 11:59 PM CDT Hospital Encounter [facility] Diagnostic XR [address] [place] [address] Rajeev Diamond MD Radiology, [facility] Rad Nurse Arrived Discharge Disposition: Home or Self Care from Last 3 Months Social History Tobacco Use Types Packs/Day Years Used Date Smoking Tobacco: Never Assessed Sex and Gender Information Value Date Recorded Sex Assigned at Not on file Legal Sex Male 1:36 PM CDT Gender Identity Not on file Sexual Orientation Not on file Last Filed Vital Signs Vital Sign Reading Time Taken Comments Blood Pressure 113/72 02/08/2025 8:17 AM CDT Pulse 54 02/08/2025 8:17 AM CDT Temperature 36.5 C (97.7 F) 02/08/2025 8:17 AM CDT Respiratory Rate 17 02/08/2025 8:17 AM CDT Oxygen Saturation 97% 02/08/2025 8:17 AM CDT Inhaled Oxygen Concentration - - Weight 83.9 kg (185 lb) 02/08/2025 8:17 AM CDT Height 188 cm (6' 2) 02/08/2025 8:17 AM CDT Body Mass Index 23.75 02/08/2025 8:17 AM CDT Plan of Treatment Health Maintenance Due Date Last Done Comments DTAP/TDAP/TD VACCINES (1 - Tdap) 1973 PNEUMOCOCCAL VACCINE 50+ YEARS (1 of 2 - PCV) 11/13/18 74 COLORECTAL SCREENING 11/14/1999 Colorectal Cancer Screening 11/14/1999 FIT-DNA Q 3 years 11/14/1999 FIT/FOBT Q 1 year 11/14/1999 Flex Sig/CT Colonography Q 5 years 11/14/1999 ZOSTER VACCINE (1 of 2) 2004 RSV VACCINE (60+ or ) (1 - Risk 60-74 years 1-dose series) 2014 Medicare [place] Prev entative Visit/Annual Wellness Visit 05/16/2024 INFLUENZA VACCINE (#1) 2024 Procedures Procedure Name Priority Date/Time Associated Diagnosis Comments CT CERVICAL SPINE W CONTRAST Routine 02/08/2025 10:55 AM CDT Cervicalgia XR MYELOGRAM CERVICAL Routine 02/08/2025 9:48 AM CDT Cervicalgia from Last 3 Months Results * CT CERVICAL SPINE W CONTRAST (02/08/2025 10:55 AM CDT) Anatomical Region Laterality Modality Spine Computed Tomogra phy 02/08/2025 10:5 5 AM CDT Impressions 02/08/2025 3:00 PM CDT IMPRESSION: 1. Multilevel cervical spondylosis as described above. DICTATION LOCATION: Location [address] [place] [address] 02/08/2025 3:[address] CERVICAL SPINE WITH INTRATHECAL CONTRAST WITH REFORMATTED IMAGES (POST MYELOGRAM) DATE: 02/08/2025 10:55 AM HISTORY: See Diagnosis. Cervicalgia COMPARISON: None. TECHNIQUE: Multislice helical axial imaging with multiplanar reformats utilizing intrathecal Isovue M300 administered during a myelogram procedure, which is dictated separately. The examination was performed with the adjustment of mA according to the patient size and/or the use of Iterative Reconstruction Technique. FINDINGS: The alignment of the cervical spine is normal. The vertebral body heights are maintained. There is multilevel disc degeneration. The spinal cord is normal in caliber contour. C2-C3: There is no significant disc bulge, central spinal neural foraminal stenosis. C3-C4: There is left facet and uncovertebral hypertrophy which results in mild to moderate left neural foraminal stenosis. No central spinal stenosis. C4-C5: There is a posterior disc osteophyte complex with bilateral uncovertebral hypertrophy and left facet arthropathy. This results in mild to moderate left neural foraminal stenosis and mild central spinal stenosis. C5-C6: There is a posterior disc osteophyte complex with bilateral uncovertebral hypertrophy and facet arthropathy. This results in mild right neural foraminal stenosis and severe left neural foraminal stenosis. There is mild central spinal stenosis. C6-C7: There is a posterior disc osteophyte complex with bilateral uncovertebral hypertrophy. This results in mild bilateral neural foraminal stenosis. No central spinal stenosis. C7-T1: There is no significant disc bulge, central spinal or neural foraminal stenosis. Procedure Note Atilio Jordan MD - 02/08/2025 CT CERVICAL SPINE WITH INTRATHECAL CONTRAST WITH REFORMATTED IMAGES (POST MYELOGRAM) DATE: 02/08/2025 10:55 AM HISTORY: See Diagnosis. Cervicalgia COMPARISON: None. TECHNIQUE: Multislice helical axial imaging with multiplanar reformats utilizing intrathecal Isovue M300 administered during a myelogram procedure, which is dictated separately. The examination was performed with the adjustment of mA according to the patient size and/or the use of Iterative Reconstruction Technique. FINDINGS: The alignment of the cervical spine is normal. The vertebral body heights are maintained. There is multilevel disc degeneration. The spinal cord is normal in caliber contour. C2-C3: There is no significant disc bulge, central spinal neural foraminal stenosis. C3-C4: There is left facet and uncovertebral hypertrophy which results in mild to moderate left neural foraminal stenosis. No central spinal stenosis. C4-C5: There is a posterior disc osteophyte complex with bilateral uncovertebral hypertrophy and left facet arthropathy. This results in mild to moderate left neural foraminal stenosis and mild central spinal stenosis. C5-C6: There is a posterior disc osteophyte complex with bilateral uncovertebral hypertrophy and facet arthropathy. This results in mild right neural foraminal stenosis and severe left neural foraminal stenosis. There is mild central spinal stenosis. C6-C7: There is a posterior disc osteophyte complex with bilateral uncovertebral hypertrophy. This results in mild bilateral neural foraminal stenosis. No central spinal stenosis. C7-T1: There is no significant disc bulge, central spinal or neural foraminal stenosis. IMPRESSION: 1. Multilevel cervical spondylosis as described above. DICTATION LOCATION: Location [address] [place] [address] [place] Rajeev Diamond MD CT ORDERABLES Fin al Result * XR MYELOGRAM CERVICAL (02/08/2025 9:48 AM CDT) Anatomical Region Laterality Modality Spine Computed Radiogr aphy 02/08/2025 9:49 AM CDT Impressions 02/08/2025 11:31 AM CDT IMPRESSION: Limited conventional cervical myelogram. Please see separately dictated CT scan. DICTATION LOCATION: [address] Narrative 02/08/2025 11:31 AM CDT CERVICAL MYELOGRAM DATE: 02/08/2025 9:48 AM HISTORY: Left arm pain TECHNIQUE: The procedure and its complications were explained to the patient, who agreed to the procedure. The complications discussed include headache, infection and neurological dysfunction. The patient was prepped and draped using aseptic technique. After infiltration with local anesthetic, a 22 gauge needle was introduced into the subarachnoid space at the level of L2-L3. Following instillation of 15 cc of ISO 300m, radiographs were then obtained in AP, lateral and oblique projections. The patient appeared to tolerate the procedure well and no immediate complications were noted. FINDINGS: Intrathecal contrast is noted in the lumbar spine. The cervical myelographic images are limited. Reference Air Kerma : 96.3 mGy INCIDENTAL FINDINGS: None. Procedure Note Atilio Jordan MD - 02/08/2025 CERVICAL MYELOGRAM DATE: 02/08/2025 9:48 AM HISTORY: Left arm pain TECHNIQUE: The procedure and its complications were explained to the patient, who agreed to the procedure. The complications discussed include headache, infection and neurological dysfunction. The patient was prepped and draped using aseptic technique. After infiltration with local anesthetic, a 22 gauge needle was introduced into the subarachnoid space at the level of L2-L3. Following instillation of 15 cc of ISO 300m, radiographs were then obtained in AP, lateral and oblique projections. The patient appeared to tolerate the procedure well and no immediate complications were noted. FINDINGS: Intrathecal contrast is noted in the lumbar spine. The cervical myelographic images are limited. Reference Air Kerma : 96.3 mGy INCIDENTAL FINDINGS: None. IMPRESSION: Limited conventional cervical myelogram. Please see separately dictated CT scan. DICTATION LOCATION: Location [address] [place] [address] Rajeev Diamond MD DIAGNOSTIC IMAGING ORDERABLES Final Result from Last 3 Months Insurance [facility] [id number]
--- OUTSIDE RECORDS SUMMARY | 2025-02-11 09:39 | XMS_ITS | Patient Health Record ---
Author Organization [facility] Address [address] [place] [address] ANASTACIA Burns [address] Care Team Providers Care High [employer] Social Science Teacher Name Role Phone FELA TIWARI MD Primary Care Provider Unavaschuyler lable ALLERGIES No Known Allergies REASON FOR REFERRAL No Information MEDICATIONS Medication SIG (Take, Route, Frequency, Duration) Notes Start Date End Date Status Hysingla ER 40 MG 1 tablet Orally Once a day Active Pantoprazole Sodium 20 MG 1 tablet Orall y Once a day for 30 day(s) Active SOCIAL HISTORY Sex Assigned At : Social History Observation Description Sex Assigned At Unknown Alcohol Screen (Audit-C) Question Answer Notes Did you have a drink contain ing alcohol in the past year? Yes How often did you have a dri nk containing alcohol in the past year? 2 to 4 times a month (2 points) How many drinks did you have on a typical day when you were drinking in the past year? 1 or 2 drinks (0 point) How often did you have 6 or more drinks on one occasion in the past year? Never (0 point) Points 2 Interpretation Negative Section Notes: The patient is retired. He i s with three children. He denies tobacco, alcohol, or illiict drug abuse. PROBLEMS Problem Type ICD Code Onset Dates Problem Status W/U Status Risk SNOMED Code Notes Problem Pain in right shoulder (M25.511) Active confirmed Pain of right shoulder region (finding) (4044598239) Problem Spondylolisthesis , lumbosacral region (M43.17) Active confirmed Acquired spondylolisthesis (703248959) Problem Spondylosis without myelopathy or radiculopathy, cervical region (M47.812) Active confirmed Cervical spondylosis without myelopathy (112780256) Problem Spondylosis without myelopathy or radiculopathy, lumbar region (M47.816) Active confirmed Lumbosacral spondylosis without myelopathy (53007167) Problem Spinal stenosis, cervical region (M48.02) Active confirmed Spinal stenosis in cervical region (34161697) Problem Other intervertebral disc degeneration, lumbosacral region (M51.37) Active confirmed Degeneration of lumbosacral intervertebral disc (33283115) Problem Radiculopathy, cervical region (M54.12) Active confirmed Cervical radiculopathy (58313421) Problem Radiculopathy, lumbar region (M54.16) Active confirmed Lumbar radiculopathy (165734502) Problem Osseous and subluxation stenosis of intervertebral foramina of lumbar region (M99.63) Active confirmed Spinal stenosis of lumbar region (83810156) Problem manager long term care (current) use of opiate analgesic (Z79.891) Active confirmed High risk drug monitoring status (058228339) PLAN OF TREATMENT No Information Insurance Providers Payer Name Payer Address Payer Phone Subscriber Number Group Number Insured Name Patient Relationship to Insured Coverage Start Date [facility]age End Date [facility] [address] [address] [place] [address] [id number] JOI STUBBS Self - patient is the insured 2 MEDICAL (GENERAL) HISTORY Medical History History ICD Code Headaches Insomnia Surgical History Surgery Date(Month/Year) Right total knee arthroplasty 1999 Right shoulder arthroscopy
--- OUTSIDE RECORDS SUMMARY | 2025-02-11 09:39 | XMS_ITS | Patient Health Record ---
Author Organization [facility] Address [address] [place], [place] [id number] Care Team Providers Care Ortho Rn Name Role Phone Saeed Tabor M.D. Primary Care Provider Laine AnasrinesNestor Unavailable [phone] Migration, Provider Unavailable Unavailable Reason For Referral No Information Medications Medication SIG (Take, Route, Frequency, Duration) [...] orally bid; Duration: 10 days 06/13/2017 Active Social History Social History Additional Details Category Social Info Options Details Social History Occupation No Recreational drug use No Smokeless Tobacco No Passive smoke exp: No Encounters Encounter Location Date Provider Diagnosis [facility] [address] [place], [place] [id number] 04/28/2024 Provider Migration Plan Of Treatment No Information Insurance Providers Payer Name Payer Address Payer Phone Subscriber Number Group Number Insured Name Patient Relationship to Insured Coverage Start Date Coverage End Date [facility] [address] [place] [id number] Kvng Flores Self - patient is the insured Medical (General) History Medical History History ICD Code Pertinent Medical History: S inusitis, Nose problems, Throat/Neck problems, Migraine headaches, Anxiety/Depression, Surgical History Surgery Date(Month/Year) Knee sx Wrist- both
--- OUTSIDE RECORDS SUMMARY | 2025-02-11 09:39 | XMS_ITS | Patient Health Record ---
Author Organization [facility] [place] ([address]) Address [address] [facility] [address] [place] [address] Care Team Providers Care Auto Radio Mechanic Name Role Phone Ayo Huber MD Primary Care Provider Hany Hathaway Unavailable [phone] Allergies No Known Allergies Reason For Referral No Information Medications Medication SIG (Take, Route, Frequency, Duration) Notes Start Date End Date Status PANTOPRAZOLE 40 mg 1 tab(s) orally once a day; Duration: 30 day(s) Active TAMSULOSIN 0.4 mg 1 cap(s) orally once a day; Duration: 30 day(s) Active FLUTICASONE NASAL 50 mcg/inh 2 spray(s) in each nostril BID; Duration: 30 day(s) Active ACETAMINOPHEN-HYDRO CODONE 325 mg-10 mg 1 tab(s) orally every 6 hours Not-Taking Fluticasone Propionate 50 MCG/ACT 2 spray(s) in each nostril BID; Duration: 30 day(s) Active Amoxicillin 875 MG 1 tab(s) orally every 12 hours Not-Taking AMOXICILLIN 875 mg 1 tab(s) orally every 12 hours Not-Taking HYDROcodone-Acetami nophen 10-325 MG 1 tab(s) orally every 6 hours Not-Taking FLUTICASONE NASAL 50 mcg/inh 2 spray(s) in each nostril Qday; Duration: 30 day(s) Active MORPHINE 15 mg 1 tab(s) orally every 4 hours Active CETIRIZINE 10 mg 1 tab(s) orally once a day; Duration: 30 days Active TRIAMCINOLONE ACETONIDE TOPICAL 0.1% 1 tavia applied topically 3 times a day; Duration: 7 day(s) Active NASAL WASHES N/A DIRECTED INTRANASALLY NEEDED; Duration: 30 *Please review for potential replacement for e-prescription and drug interaction check* Active EPIPEN 2-JOSE 0.3 mg as directed intramuscularly once; Duration: 30 day(s) Active Fluticasone Propionate 50 MCG/ACT 2 spray(s) in each nostril Qday; Duration: 30 day(s) Active XOLAIR 150 mg 300 mg subcutaneously every 5 weeks; Duration: 30 day(s) Active Cetirizine HCl 10 MG 1 tab(s) orally [...] 1 tab(s) orally every 4 hours Active Immunizations Vaccine Route Administration Date Status Comme nts NOC Pneumovax 23 Unknown 03/27/2013 Administered NOC Tdap Unknown 03/27/2013 Administered NOC Prevnar 13 Unknown 05/20/2020 Administered Fluzone Quadrivalent Unknown 03/27/2013 Administered Fluzone Quadrivalent Unknown 06/16/2020 Refused NOC Flucelvax Quadrivalent Unknown 05/05/2020 Refused NOC Flucelevax Quadrivalent Unknown 03/03/2020 Refused Covid 19 (Pfizer) Unknown 08/15/2020 Administered Social History Tobacco Use: Social History Observation Description Date Details (start date - stop date) Former Smoker NA - NA Smoking Smart Form: Question Answer Notes Are you a: former smoker Problems Problem Type SNOMED Code ICD Code Onset Dates Problem Status W/U Status Risk Notes Problem Idiopathic urticaria (46632320) Idiopathic urticaria (L50.1) Active confirmed Problem Tinnitus of left ear (1942031385602) Tinnitus, left ear (H93.12) Active confirmed Problem Allergic rhinitis caused by pollen (disorder) (84987353) Allergic rhinitis due to pollen (J30.1) Active confirmed Problem Gastro-esophageal reflux disease without esophagitis (876394093) Gastro-esophageal reflux disease without esophagitis (K21.9) Active confirmed Problem Vesicular eczema (disorder) (708074279) Dyshidrosis [pompholyx] (L30.1) Active confirmed Problem Fatigue (60260798) Other fatigue (R53.83) Active confirmed Problem Allergic rhinitis caused by pollen (disorder) (94794533) Allergic rhinitis due to pollen (J30.1) Active confirmed Problem Allergic rhinitis caused by animal hair and dander (539543653763655) Allergic rhinitis due to animal (cat) (dog) hair and dander (J30.81) Active confirmed Problem Allergic rhinitis (10203550) Other allergic rhinitis (J30.89) Active confirmed Problem Chronic allergic conjunctivitis (96313835) Other chronic allergic conjunctivitis (H10.45) Active confirmed Problem Angioneurotic edema (81928905) Angioneurotic edema, subsequent encounter (T78.3XXD) Active confirmed Problem Pain (53803142) Pain, unspecifie d (R52) Active confirmed Problem Swelling of head (340554626) Localized swelling, mass and lump, head (R22.0) Active confirmed Problem Headache (88418868) Headache, unspecified (R51.9) Active confirmed Plan Of Treatment No Information Insurance Providers Payer Name Payer Address Payer Phone Subscriber Number Group Number Insured Name Patient Relationship to Insured Coverage Start Date Coverage End Date [employer] Medicare Advantage from [facility] [address] [address] [place] [address] [id number] Kvng Flores Self - patient is the insured Medical (General) History Medical History History ICD Code Gastro-esophageal reflux disease without esophagitis K21.9 Idiopathic urticaria L50.1 Angioneurotic edema, subsequent encounte r T78.3XXD Allergic rhinitis due to pollen J30.1 Allergic rhinitis due to animal (cat) (d og) hair and dander J30.81 Other allergic rhinitis J30.89 Other chronic allergic conjunctivitis H1 0.45 Headache, unspecified R51.9 Surgical History Surgery Date(Month/Year)
--- OUTSIDE RECORDS SUMMARY | 2025-02-11 09:40 | XMS_ITS | Clinical Summary ---
Author Organization [facility] Address [address] [place] [address] Care Team Providers Care Small Lot Operator Name Role Phone Unavailable Primary Care Provider Unavailabl e Social History Tobacco Use Types Packs/Day Years Used Date Smoking Tobacco: Never Assessed Sex and Gender Information Value Date Recorded Sex Assigned at Not on file Legal Sex Male 5:56 PM CDT Gender Identity Not on file Sexual Orientation Not on file Plan of Treatment Health Maintenance Due Date Last Done Comments Colorectal Cancer Screening Colonoscopy (10 Years) 1954 Hepatitis C 1972 DTaP, Tdap and Td Vaccines ( 1 - Tdap) 1973 Pneumococcal Vaccine: 50+ Ye ars (1 of 1 - PCV) 2004 Zoster Vaccines (1 of 2) 2004 COVID-19 Vaccine (1 - 2023-2 5 season) 2025 RSV Immunization or 60+ Years (1 - 1-dose 75+ series) 2029 Meningococcal B Vaccine Aged Out No l onger eligible based on patient's age to complete this topic Meningococcal Vaccine Aged Out No evelio laura eligible based on patient's age to complete this topic RSV Immunizations Under 20 Months Aged Out No longer eligible based on patient's age to complete this topic
--- NOTE | 2025-02-11 09:43 | ED.HA ---
HPI - Headache General Chief Complaint: Headache Stated Complaint: headache and neck pain Time Seen by Provider: 02/11/25 09:26 Source: patient Mode of arrival: ambulatory Limitations: no limitations History of Present Illness HPI Narrative: This is a 69 year old male that presents to the ER for headache. Ongoing since his CT myelogram on Tuesday at [facility]. He had this to evaluate his spinal stenosis. Reports since he got home he has been resting as instructed. Despite this he has continued to have a severe headache. Worse with standing. Reports associated nausea. Denies fevers, vision changes, new numbness or weakness. Related Data Home Medications ?Medication ?Instructions ?Recorded ?Confirmed ?Last Taken ?Type morphine 15 mg tablet,extended 15 mg PO Q8H 02/08/24 02/22/24 02/21/24 History release tamsulosin 0.4 mg capsule (Flomax) 0.4 mg PO DAILY 02/08/24 02/22/24 02/21/24 History Allergies Allergy/AdvReac Type Severity Reaction Status Date / Time trazodone Allergy Mild Angioedema Verified 02/11/25 09:26 amitriptyline Allergy Unknown EDEMA Verified 02/11/25 09:26 Review of Systems Review of Systems: All systems reviewed & are unremarkable except as noted in HPI and below PMFSH Past Medical History Medical History (Updated 02/11/25 @ 12:54 by Niru Santana PA-C) Early satiety Cough Right knee DJD Bilateral wrist deformity Pre-diabetes Hx of migraines Back pain Thrombocytopenia Depression Chronic pain RLQ abdominal pain GERD (gastroesophageal reflux disease) Nausea Nephrolithiasis Surgical History Surgical History H/O endoscopy Hx of colonoscopy Family History Family History Sibling Carcinoma of colon, Onset Age: 54 Social History Social History Smoking status: Never smoker Alcohol intake: never Substance use: former Substance use type: marijuana Living arrangements: with family Gender identity (if verbalized by the patient): Male Spiritual care concerns: No Exam Narrative: GENERAL: Uncomfortable, well-nourished, and in no acute distress. HEAD: Normocephalic, atraumatic. EYES: PERRLA and EOMI. ENT: Nares clear, no rhinorrhea or epistaxis. Mucous membranes moist. Oropharynx without tonsillar hypertrophy exudate or other lesions. Bilateral TMs pearly vivas non-bulging NECK: Supple. No adenopathy or masses. CHEST: Clear to auscultation. No respiratory distress. No wheezes rales or rhonchi HEART: Regular rate and rhythm. No murmur heard. Normal peripheral pulses. ABDOMEN: Soft, nontender, nondistended, normal active bowel sounds. EXTREMITIES: Normal range of motion. No edema. Strength equal in bilateral upper and lower extremities (5/5) SKIN: Warm, dry, no rash. NEURO: No focal deficits. Alert and oriented x3. Cranial nerves 2-12 grossly intact PSYCH: Normal mood and affect Course Consultations Consultation #1: Spoke with Anesthesiology Department here at [facility], we are not able to perform a blood patch on this patient. Date: 02/11/25 Consultation #2: Spoke with patient's spine surgeon, Dr. Hendrickson about patient. He should call the radiology department at [facility] to have a blood patch set up Date: 02/11/25 Vital Signs Vital signs: Vital Signs Temperature 98 F 02/11/25 09:15 Pulse Rate 69 02/11/25 09:15 Respiratory Rate 17 02/11/25 09:15 Blood Pressure 127/80 02/11/25 09:15 Pulse Oximetry 99 02/11/25 09:15 Oxygen Delivery Room Air 02/11/25 09:15 Temperature 98 F 02/11/25 09:15 Pulse Rate 71 02/11/25 12:39 Respiratory Rate 15 02/11/25 12:39 Blood Pressure 108/72 02/11/25 12:39 Pulse Oximetry 97 02/11/25 12:39 Oxygen Delivery Room Air 02/11/25 09:15 MDM - Headache MDM Narrative Medical decision making narrative: Patient presents the emergency department for a headache after having a lumbar puncture Tuesday to a CT myelogram for his cervical spine stenosis. Reports he trying to rest, any time he gets he gets up he is quite comfortable. Having trouble performing ADLs due to this. He is neurologically intact. CT brain without acute findings. Patient given migraine cocktail with improvement. Resting comfortably. Spoke with Anesthesiology Department here at [facility], we are not able to perform a blood patch on this patient. Spoke with patient's spine surgeon, Dr. Hendrickson about patient. He should call the radiology department at [facility] to have a blood patch set up. He was given warnings to return to the ER Differential Diagnosis Differential diagnosis: Likely migraine, tension headache, subarachnoid hemorrhage, headache and other (post lumbar puncture headache) Imaging Data Radiologist's impression: ITS Impressions Head CT 02/11/25 10:11 Impression: 1.No acute intracranial abnormality. Critical Care Time Critical Care Time Critical Care Time: No Discharge Plan Discharge Clinical Impression: Post lumbar puncture headache Patient Disposition: Home Condition: Improved Instructions: Epidural Blood Patch (DC), Lumbar Puncture (ED) Additional Instructions: Return to the emergency department if you experience fevers, stiff neck, persistent vomiting, numbness, weakness, or any other symptoms that are concerning to you Your spine doctor recommends calling the radiology department at [facility] to get evaluated for a blood patch to help with your headaches. In the meantime I will send some prescribed pain medication Patient Language: Solomon Islander Prescriptions: New hiifixfpai-[id number]-sedp [Fioricet] 50-300-40 mg capsule 1 cap PO Q4-6H PRN (Reason: pain) Qty: 10 0RF No Action pantoprazole 40 mg tablet,delayed release (DR/EC) 40 mg PO QAM 30 Days Qty: 30 5RF tamsulosin [Flomax] 0.4 mg capsule 0.4 mg PO DAILY morphine 15 mg tablet extended release 15 mg PO Q8H famotidine 40 mg tablet 40 mg PO QHS 30 Days Qty: 30 5RF Follow-up/Referrals: Mayo,Ayo Vazquez MD [Primary Care Provider]
[2025-02-11] MEDS: SODIUM CHLORIDE 0.9% IV 1,000 ML 999 ML IV CONT (09:47)
[2025-02-11] MEDS: ACETAMINOPHEN 500 MG TABLET 1000 MG PO (09:48)
[2025-02-11] MEDS: METOCLOPRAMIDE HCL INJ 10 MG/2 ML VIAL IV PUSH (09:49)
--- OUTSIDE RECORDS SUMMARY | 2025-02-11 10:37 | XMS_ITS | Clinical Summary ---
Author Organization [facility] Address [address] [place] [address] Care Team Providers Care Configuration Management Manager Name Role Phone Saeed Tabor MD Primary [...] Type Department Care Team Description 01/02/2025 Telephone [facility] Medicine Ophthalmology [facility] [facility] [address] [place] [id number] Lobo Yates OD 12/25/2024 4:22 PM CDT - 12/25/2024 11:59 PM CDT Hospital Encounter [facility] [address] [place] [id number] Vishal Sutton MD Left wrist pain Discharge Disposition: Discharge to home or self care 12/25/2024 3:10 PM CDT Office Visit [facility] [address] [place] [address] Advanced Medicine [address] [place] [address] [place] [address] Vishal Sutton MD Left wrist pain (Primary [...] on file Legal 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 Gender Identity Not on file Sexual Orientation Not on file Obstetrics History Last Filed Vital Signs Vital Sign Reading Time Taken Comments Blood Pressure 118/77 05/24/2014 3:19 PM PHOTOGRAPHIC PRESS SCREWMAKER Pulse 75 05/24/2014 3:19 PM PHOTOGRAPHIC PRESS SCREWMAKER Temperature - - Respiratory Rate - - Oxygen Saturation 95% 04/13/2014 11:31 AM PHOTOGRAPHIC PRESS SCREWMAKER Inhaled Oxygen Concentration - - Weight 86.2 [...] Insurance MEDICARE ADVANTAGE MEDICARE ADVANTAGE Care Teams Configuration Management Manager Relationship Specialty Start Date End Date Saeed Tabor MD [address] [place] [address] PCP - General 07/09/16
--- OUTSIDE RECORDS SUMMARY | 2025-02-11 10:37 | XMS_ITS | Clinical Summary ---
Author Organization [facility] Address [address] [place] [address] Phone Care Team Providers Care Oracle Hrms Developer Name Role Phone Unavailable Primary Care Provider Unavailabl e Allergies No known active allergies Encounters Date Type Department Care Team Description 02/08/2025 7:33 AM CDT - 02/08/2025 11:59 PM CDT Hospital Encounter [facility] Scan [address] [place] [address] Rajeev Diamond MD Discharge Disposition: Home or Self Care 02/08/2025 7:32 AM CDT - 02/08/2025 11:59 PM CDT Hospital Encounter [facility] Diagnostic XR [id number] [place] [address] Rajeev Diamond MD Radiology, [facility] Rad Nurse Arrived Discharge Disposition: Home or [...] spondylosis as described above. DICTATION LOCATION: Location [address] [place] [address] 02/08/2025 3:[address] CERVICAL SPINE [...] spondylosis as described above. DICTATION LOCATION: Location [address] [place] [address] [place] Rajeev Diamond MD CT ORDERABLES Fin al Result * XR MYELOGRAM CERVICAL (02/08/2025 9:48 AM CDT) Anatomical Region Laterality Modality Spine Computed Radiogr aphy 02/08/2025 9:49 AM CDT Impressions 02/08/2025 11:31 AM CDT IMPRESSION: Limited conventional cervical myelogram. Please see separately dictated CT scan. DICTATION LOCATION: [address] Narrative 02/08/2025 11:31 AM CDT CERVICAL [...] separately dictated CT scan. DICTATION LOCATION: Location [address] [place] [address] Rajeev Diamond MD DIAGNOSTIC IMAGING ORDERABLES Final Result from Last 3 Months Insurance [facility] [id number]
--- OUTSIDE RECORDS SUMMARY | 2025-02-11 10:37 | XMS_ITS | Clinical Summary ---
Author Organization [facility] Address [address] [place] [address] Care Team Providers Care Hi Ranger Operator Name Role Phone Unavailable Primary Care [...]
[2025-02-11] MEDS: CAFFEINE 200 MG TABLET PO (12:38)
== END 2025-02-11 13:16 | disposition home or self-care (01) ==
PROVIDERS: Emergency Provider Physician Assistant; PCP Internal Medicine
DX: G97.1 Other reaction to spinal and lumbar puncture (principal); Y84.4 Aspiration of fluid as the cause of abnormal reaction of the patient, or of later complication, without mention of misadventure at the time of the procedure
CPT/HCPCS: 70450; 96361; 96374; 96375; 99284; A9270; J1200; J2765; J7030

== ENCOUNTER 2025-04-09 00:20 | Day surgery (SDC) | payer MEDICARE, SELFPAY ==
[2025-03-21 15:00] VITALS: BMI 23.8
--- OUTSIDE RECORDS SUMMARY | 2025-04-09 00:23 | XMS_ITS | Clinical Summary ---
Author Organization [facility] Address [address] [place] [address] Care Team Providers Care Curriculum Advisory Teacher Name Role Phone Unavailable Primary Care Provider [...] of 2) 2004 COVID-19 Vaccine (1 - 2024-2 6 season) 2025 Influenza Adult (#1) 2025 RSV Immunization or 60+ Years (1 - 1-dose 75+ series) 2029 Hepatitis A Vaccines Aged Out No long er eligible based on patient's age to complete this topic Meningococcal B Vaccine Aged Out No l onger eligible based on patient's age to complete this topic Meningococcal Vaccine Aged Out No evelio laura eligible based on patient's age to complete this topic RSV Immunizations Under 20 Months Aged Out No longer eligible based on patient's age to complete this topic
--- OUTSIDE RECORDS SUMMARY | 2025-04-09 00:23 | XMS_ITS | Clinical Summary ---
Author Organization [facility] Address [address] [place] [address] Phone Care Team Providers Care Pricing Coordinator Name Role Phone Ayo Huber MD Primary Care Provider [phone] Allergies No known active allergies Medications melatonin 10 mg Capsule Take 10 mg by mouth. Active pantoprazole (PROTONIX) 40 mg Tablet, Delayed Release (E.C.) Take 40 mg by mouth daily. Active SUMAtriptan (IMITREX) 50 mg tablet Take 1 Tablet (50 mg) by mouth 2 times daily. may repeat in 2 hours; max dose 200mg in 24 hours 60 Tablet 5 Active oxymetazoline (AFRIN) 0.05 % [place], Non-Aerosol Administer 1 [place] in each nostril every 6 hours as needed for Congestion. Up to 3 days 22 mL 5 Active naloxone (NARCAN) 4 mg/spray [place], Non-Aerosol EMERGENCY USE ONLY: Administer 1 spray (4 mg) in one nostril one time. May repeat in alternating nostrils every 2-3 min until responsive or EMS arrives. 2 Each 3 Active Active Problems Problem Noted Date Diagnosed Date Other headache syndrome 02/12/2025 Nausea 02/12/2025 CSF leak 02/12/2025 Other constipation 02/12/2025 Left upper extremity numbness 02/12/2025 Spinal stenosis, cervical region 02/12/2025 Hyponatremia 02/12/2025 High anion gap metabolic acidosis 02/12/2025 BPH (benign prostatic hyperplasia) 02/12/2025 Generalized muscle weakness 02/12/2025 Physical deconditioning 02/12/2025 Hypotension 02/12/2025 GERD (gastroesophageal reflux disease) Marijuana use 02/12/2025 Spinal headache 02/12/2025 Encounters Date Type Department Care Team Description 03/19/2025 External Device Data [facility] ABSTRACTION Provider, Abstract 03/19/2025 External Device Data [facility] ABSTRACTION Provider, Abstract 03/12/2025 External Device Data [facility] ABSTRACTION Provider, Abstract 03/12/2025 External Device Data [facility] ABSTRACTION Provider, Abstract 02/19/2025 External Device Data [facility] ABSTRACTION Provider, Abstract 02/19/2025 External Device Data [facility] ABSTRACTION Provider, Abstract 02/19/2025 External Device Data [facility] ABSTRACTION Provider, Abstract 02/12/2025 3:04 PM CDT - 02/15/2025 5:23 PM CDT Hospital Encounter [facility] [address] [place] [address] Darlene Wolfe MD Padgett, Sabrina, MD Ambadi, Pragna, MD CSF leak Discharge Disposition: Home or Self Care 02/12/2025 External Device Data STL ABSTRACTION Provider, Abstract 02/12/2025 External Device Data [facility] ABSTRACTION Provider, Abstract 02/12/2025 External Device Data [facility] ABSTRACTION Provider, Abstract 02/08/2025 7:33 AM CDT - 02/08/2025 11:59 PM CDT Hospital Encounter [facility] [place] Scan [address] [place] [address] Rajeev Diamond MD Discharge Disposition: Home or Self Care 02/08/2025 7:32 AM CDT - 02/08/2025 11:59 PM CDT Hospital Encounter [facility] Diagnostic XR [address] [place] [address] Rajeev Diamond MD Radiology, [facility] Rad Nurse Discharge Disposition: Home or Self Care from Last 3 Months Social History Tobacco Use Types Packs/Day Years Used Date Smoking Tobacco: Unknown Tobacco Cessation:Counseling Given: Not Answered Feeling Safe Answer Date Recorded Are you in a relationship wi th someone who hurts you emotionally and/or physically? No 02/13/2025 Food Insecurity Answer Date Recorded Patient needs follow up regardin 02/13/2025 Transportation Needs Answer Date Record ed Patient needs follow up regardin 02/13/2025 Utility Needs Answer Date Recorded Patient needs follow up regardin 02/13/2025 Sex and Gender Information Value Date Recorded Sex Assigned at Not on file Legal Sex Male 1:36 PM CDT Gender Identity Not on file Sexual Orientation Not on file Last Filed Vital Signs Vital Sign Reading Time Taken Comments Blood Pressure 96/53 02/15/2025 3:00 PM CDT Pulse 68 02/15/2025 3:00 PM CDT Temperature 37 C (98.6 F) 02/15/2025 3:00 PM CDT Respiratory Rate 18 02/15/2025 3:00 PM CDT Oxygen Saturation 100% 02/15/2025 3:00 PM CDT Inhaled Oxygen Concentration - - Weight [...] Flex Sig/CT Colonography Q 5 years 11/14/1999 RSV VACCINE (60+ or ) (1 - Risk 50-74 years 1-dose series) 2004 ZOSTER VACCINE (1 of 2) 2004 INFLUENZA VACCINE (#1) 2024 Procedures Procedure Name Priority Date/Time Associated Diagnosis Comments BASIC METABOLIC PANEL Routine 02/14/2025 10:42 AM CDT CBC WITHOUT DIFFERENTIAL Routine 02/14/2025 10:[address] HEAD WO CONTRAST Pending Discharge 02/13/2025 12:34 PM CDT XR FLUORO NEEDLE GUIDANCE SPINE Pending Discharge 02/13/2025 12:11 PM CDT COMPREHENSIVE METABOLIC PANEL Stat 02/12/2025 12:59 PM CDT CBC WITH DIFFERENTIAL Stat 02/12/2025 12:[address] CERVICAL SPINE W CONTRAST Routine 02/08/2025 10:55 AM CDT Cervicalgia XR MYELOGRAM CERVICAL Routine 02/08/2025 9:48 AM CDT Cervicalgia from Last 3 Months Results * (ABNORMAL) CBC WITHOUT DIFFERENTIAL (02/14/2025 10:42 AM CDT) [facility] WBC 5.9 4.0 - 9.8 K/uL 02/14/2025 11:40 AM CDT [facility] RBC 4.27(L) 4.50 - 5.40 M/uL 02/14/2025 11:40 AM CDT [facility] HEMOGLOBIN 13.1(L) 13.6 - 16.5 g/dL 02/14/2025 11:40 AM CDT [facility] HEMATOCRIT 38.4(L) 40.0 - 48.0 % 02/14/2025 11:40 AM CDT [facility] MCV 89.9 82.0 - 99.0 fL 02/14/2025 11:40 AM CDT [facility] MCH 30.7 27.2 - 32.6 pg 02/14/2025 11:40 AM CDT [facility] MCHC 34.1 31.5 - 35.5 g/dL 02/14/2025 11:40 AM CDT [facility] PLATELETS 130(L) 140 - 350 K/uL 02/14/2025 11:40 AM CDT [facility] MPV 12.3 9.3 - 12.4 fL 02/14/2025 11:40 AM CDT [facility] RDW 12.8 11.5 - 14.5 % 02/14/2025 11:40 AM CDT [facility] RDW-STDEV 41.9 37.1 - 48.7 fL 02/14/2025 11:40 AM CDT [facility] Blood Venipuncture / Unknown 02/14/2025 10:42 AM CDT 02/14/2025 11:38 AM CDT Mary More MD HEMATOLOGY ORDERABLES Final Res ult [facility] CLIA# [id number] [address] [place] [address] * (ABNORMAL) BASIC METABOLIC PANEL (02/14/2025 10:42 AM CDT) SODIUM 132(L) 136 - 145 mmol/L 02/14/2025 12:12 PM CDT [facility] POTASSIUM 3.3(L) 3.4 - 5.1 mmol/L 02/14/2025 12:12 PM T [facility] CHLORIDE 100 98 - 107 mmol/L 02/14/2025 12:12 PM T [facility] CO2 16(L) 22 - 29 mmol/L 02/14/2025 12:12 PM T [facility] CALCIUM 8.9 8.6 - 10.4 mg/dL 02/14/2025 12:12 PM CDT [facility] BUN 10 6 - 20 mg/dL 02/14/2025 12:12 PM CDT [facility] CREATININE 0.74 0.67 - 1.17 mg/dL 02/14/2025 12:12 PM T [facility] Comment:The GFR result is no t clinically significant on patients <18 or >70 years of age. GLUCOSE 110(H) 74 - 99 mg/dL 02/14/2025 12:12 PM T [facility] GFR >60 mL/min/1.7 3 sq meter 02/14/2025 12:12 PM T [facility] Comment:eGFR calculated with 2020 CKD-EPI equation. Vegetarian diet, extremely high or low muscle mass, and may affect results. Cystatin C with Glomerular Filtration Rate is a suitable alternative for these patients. ANION GAP 16 8 - 16 mmol/L 02/14/2025 12:12 PM CDT [facility] Blood Venipuncture / Unknown 02/14/2025 10:42 AM CDT 02/14/2025 11:43 AM CDT us Mary More MD CHEMISTRY ORDERABLES Final Resu lt [facility] CLIA# [id number] [place] [address] * CT HEAD WO CONTRAST (02/13/2025 12:34 PM CDT) Anatomical Region Laterality Modality Head Computed Tomogra phy 02/13/2025 12:3 4 PM CDT Impressions 02/13/2025 12:46 PM CDT IMPRESSION: 1. No acute intracranial process. DICTATION LOCATION: Location [address] [place] [address] Narrative 02/13/2025 12:46 PM CDT EXAMINATION: CT HEAD WO CONTRAST DATE: 02/13/2025 12:34 PM HISTORY: Headache, new or worsening (Age >= 50y); Spinal headache TECHNIQUE: CT of the head was performed without contrast according to standard protocol. The examination was performed with the adjustment of mA according to the patient size and/or the use of Iterative Reconstruction Technique. COMPARISON: No prior study is available for comparison at the time of this dictation. FINDINGS: No acute intra- or extra-axial fluid collections are identified. The ventricles are of normal size, shape, and morphology. The basilar cisterns are patent. No mass effect or midline shift is seen. The vivas-white matter differentiation is normal. Other than bilateral cataract extractions and mild paranasal sinus disease, the visible portions of the orbits, paranasal sinuses, and mastoids appear normal. No acute fracture is identified. Procedure Note Sylvain Sotomayor, DO - 02/13/2025 EXAMINATION: CT HEAD WO CONTRAST DATE: 02/13/2025 12:34 PM HISTORY: Headache, new or worsening (Age >= 50y); Spinal headache TECHNIQUE: CT of the head was performed without contrast according to standard protocol. The examination was performed with the adjustment of mA according to the patient size and/or the use of Iterative Reconstruction Technique. COMPARISON: No prior study is available for comparison at the time of this dictation. FINDINGS: No acute intra- or extra-axial fluid collections are identified. The ventricles are of normal size, shape, and morphology. The basilar cisterns are patent. No mass effect or midline shift is seen. The vivas-white matter differentiation is normal. Other than bilateral cataract extractions and mild paranasal sinus disease, the visible portions of the orbits, paranasal sinuses, and mastoids appear normal. No acute fracture is identified. IMPRESSION: 1. No acute intracranial process. DICTATION LOCATION: [address] Mary More MD CT ORDERABLES Final Result * XR FLUORO NEEDLE GUIDANCE SPINE (02/13/2025 12:11 PM CDT) Anatomical Region Laterality Modality Computed Radiogr aphy 02/13/2025 12:1 8 PM CDT Impressions 02/14/2025 9:42 AM CDT IMPRESSION: Successful fluoroscopy guided lumbar epidural blood patch. DICTATION LOCATION: [address] Narrative 02/14/2025 9:42 AM CDT FLUOROSCOPY GUIDED LUMBAR EPIDURAL BLOOD PATCH DATE: 02/13/2025 12:11 PM HISTORY: Spinal headache FINDINGS: Prior to the procedure, the benefits and risks were explained to the patient. Following local anesthesia and sterile technique, a 22 gauge Cassy needle was inserted into the epidural space at L3-L4 under fluoroscopic guidance. The 5 ml iso-kim 300 contrast was injected to confirm position within the epidural space. 10 mL of autologous blood was infused into the epidural space. The patient tolerated the procedure well, without immediate complication. REFERENCE AIR KERMA: 4.4 mGy Procedure Note Atilio Jordan MD - 02/14/2025 FLUOROSCOPY GUIDED LUMBAR EPIDURAL BLOOD PATCH DATE: 02/13/2025 12:11 PM HISTORY: Spinal headache FINDINGS: Prior to the procedure, the benefits and risks were explained to the patient. Following local anesthesia and sterile technique, a 22 gauge Cassy needle was inserted into the epidural space at L3-L4 under fluoroscopic guidance. The 5 ml iso-kim 300 contrast was injected to confirm position within the epidural space. 10 mL of autologous blood was infused into the epidural space. The patient tolerated the procedure well, without immediate complication. REFERENCE AIR KERMA: 4.4 mGy IMPRESSION: Successful fluoroscopy guided lumbar epidural blood patch. DICTATION LOCATION: Location [address] [place] [address] [facility] DIAGNOSTIC IMAGING ORDERABLES Final Result * CBC WITH DIFFERENTIAL (02/12/2025 12:59 PM CDT) WBC 5.7 4.0 - 9.8 K/uL 02/12/2025 1:33 PM CDT [facility] RBC 4.82 4.50 - 5.40 M/uL 02/12/2025 1:33 PM CDT [facility] HEMOGLOBIN 14.4 13.6 - 16.5 g/dL 02/12/2025 1:33 PM CDT [facility] HEMATOCRIT 42.7 40.0 - 48.0 % 02/12/2025 1:33 PM CDT [facility] MCV 88.6 82.0 - 99.0 fL 02/12/2025 1:33 PM CDT [facility] MCH 29.9 27.2 - 32.6 pg 02/12/2025 1:33 PM CDT [facility] MCHC 33.7 31.5 - 35.5 g/dL 02/12/2025 1:33 PM CDT [facility] RDW 12.7 11.5 - 14.5 % 02/12/2025 1:33 PM CDT [facility] RDW-STDEV 41.7 37.1 - 48.7 fL 02/12/2025 1:33 PM CDT [facility] PLATELETS 147 140 - 350 K/uL 02/12/2025 1:33 PM CDT [facility] MPV 12.1 9.3 - 12.4 fL 02/12/2025 1:33 PM CDT [facility] NEUTROPHILS 71 % 02/12/2025 1:33 PM CDT [facility] LYMPHOCYTES 21 % 02/12/2025 1:33 PM CDT [facility] MONOCYTES 6 % 02/12/2025 1:33 PM CDT [facility] EOSINOPHILS 1 % 02/12/2025 1:33 PM CDT [facility] BASOPHILS 0 % 02/12/2025 1:33 PM CDT [facility] IMMATURE GRANULOCYTES 0 % 02/12/2025 1:33 PM CDT [facility] NEUTROPHIL ABSOLUTE 4.04 1.90 - 7.00 K/uL 02/12/2025 1:33 PM CDT [facility] LYMPHOCYTE ABSOLUTE 1.16 0.70 - 4.50 K/uL 02/12/2025 1:33 PM CDT [facility] MONOCYTE ABSOLUTE 0.36 0.10 - 1.30 K/uL 02/12/2025 1:33 PM CDT [facility] EOSINOPHIL ABSOLUTE 0.08 0.00 - 0.70 K/uL 02/12/2025 1:33 PM CDT [facility] BASOPHILS ABSOLUTE 0.02 0.00 - 0.20 K/uL 02/12/2025 1:33 PM CDT [facility] IMMATURE GRANULOCYTES ABSOLUTE 0.01 0.00 - 0.03 K/uL 02/12/2025 1:33 PM CDT [facility] Blood Venipuncture / Unknown 02/12/2025 12:59 PM CDT 02/12/2025 1:31 PM CDT Berto Armijo BEHAVIOR SPECIALIST-CERTIFIED EXECUTIVE CHEF HEMATOLOGY ORDERABL ES Final Result [facility] CLIA# [id number] [address] [place] [address] * (ABNORMAL) COMPREHENSIVE METABOLIC PANEL (02/12/2025 12:59 PM CDT) [facility] SODIUM 135(L) 136 - 145 mmol/L 02/12/2025 2:00 PM [facility] POTASSIUM 3.8 3.4 - 5.1 mmol/L 02/12/2025 2:00 PM [facility] CHLORIDE 104 98 - 107 mmol/L 02/12/2025 2:00 PM [facility] CO2 14(L) 22 - 29 mmol/L 02/12/2025 2:00 PM [facility] CALCIUM 9.3 8.6 - 10.4 mg/dL 02/12/2025 2:00 PM [facility] BUN 8 6 - 20 mg/dL 02/12/2025 2:00 PM [facility] CREATININE 0.75 0.67 - 1.17 mg/dL 02/12/2025 2:00 PM [facility] Comment:The GFR result is no t clinically significant on patients <18 or >70 years of age. GLUCOSE 104(H) 74 - 99 mg/dL 02/12/2025 2:00 PM [facility] TOTAL PROTEIN 6.7 6.3 - 8.7 g/dL 02/12/2025 2:00 PM [facility] ALBUMIN 4.3 3.5 - 5.2 g/dL 02/12/2025 2:00 PM [facility] BILIRUBIN TOTAL 0.7 0.0 - 1.1 mg/dL 02/12/2025 2:00 PM [facility] ALKALINE PHOSPHATASE 64 40 - 150 U/L 02/12/2025 2:00 PM [facility] AST 27 0 - 41 U/L 02/12/2025 2:00 PM [facility] ALT 21 0 - 41 U/L 02/12/2025 2:00 PM [facility] GFR >60 mL/min/1.7 3 sq meter 02/12/2025 2:00 PM CDT [facility] Comment:eGFR calculated with 2020 CKD-EPI equation. Vegetarian diet, extremely high or low muscle mass, and may affect results. Cystatin C with Glomerular Filtration Rate is a suitable alternative for these patients. ANION GAP 17(H) 8 - 16 mmol/L 02/12/2025 2:00 PM CDT [facility] Blood Venipuncture / Unknown 02/12/2025 12:59 PM CDT 02/12/2025 1:32 PM CDT us Berto Armijo BEHAVIOR SPECIALIST-CERTIFIED EXECUTIVE CHEF CHEMISTRY ORDERABLE S Final Result [facility] CLIA# [id number] [place] [address] * CT CERVICAL SPINE W CONTRAST (02/08/2025 10:55 AM CDT) Anatomical Region Laterality Modality Spine Computed Tomogra phy 02/08/2025 10:5 5 AM CDT Impressions 02/08/2025 3:00 PM CDT IMPRESSION: 1. Multilevel cervical spondylosis as described above. DICTATION LOCATION: Location 7- [facility] Narrative 02/08/2025 3:[address] CERVICAL SPINE [...] spondylosis as described above. DICTATION LOCATION: Location [address] [place] [address] us Rajeev Diamond MD CT ORDERABLES Fin al Result * XR MYELOGRAM CERVICAL (02/08/2025 9:48 AM CDT) Anatomical Region Laterality Modality Spine Computed Radiogr aphy 02/08/2025 9:49 AM CDT Impressions 02/08/2025 11:31 AM CDT IMPRESSION: Limited conventional cervical myelogram. Please see separately dictated CT scan. DICTATION LOCATION: Location [address] [place] [address] Narrative 02/08/2025 11:31 AM CDT CERVICAL MYELOGRAM [...] separately dictated CT scan. DICTATION LOCATION: Location [address] [place] [address] us Rajeev Diamond MD DIAGNOSTIC IMAGING ORDERABLES Final Result from Last 3 Months Insurance [id number] [id number] Advance Directives For more information, please contact: [phone] * Full Code (Latest Code Status on File) Date Activated Date Inactivated Comments 02/12/2025 11:30 PM 02/15/2025 7:23 PM Care Teams Pricing Coordinator Relationship Specialty Start Date End Date Ayo Huber MD [address] [facility] [address] [place] [address] PCP - General Internal Medicine 02/14/25
--- OUTSIDE RECORDS SUMMARY | 2025-04-09 00:23 | XMS_ITS | Clinical Summary ---
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[employer] Gender Identity Not on file Sexual Orientation Not on file Last Filed Vital Signs Vital Sign Reading Time Taken Comments Blood Pressure 118/77 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[employer] Pulse 75 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[employer] Temperature - - Respiratory Rate - - Oxygen Saturation 95% 04/13/2014 11:31 AM 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 RETAIL Inhaled Oxygen Concentration - - Weight 86.2 [...] C Screening Completed 03/02/2022 , 07/29/2011, 07/29/2011 Insurance [facility] MED[facility] Address: [address] [address] [facility] MEDICARE [facility] Address: [facility] [address] [place] [address] Care Teams Physician Assistant Certified Relationship Specialty Start Date End Date Saeed Tabor MD [address] [place] [address] PCP - General 07/09/16
--- OUTSIDE RECORDS SUMMARY | 2025-04-09 00:23 | XMS_ITS | Data Portability ---
Author Organization [facility], Main Office Address [address] [place] [address] Assessment No assessment recorded. Plan of Treatment Reminders Order Date Submit Date Provider Last Modified By Organization Details Last Modified Time Details Appointments None recorded. Lab lipid panel, serum [address] [facility], [address] [facility], [place], [address], 4 02:12:17 CMP, serum or plasma [address] [facility], [address] [facility], [place], [address], 4 02:12:18 CBC w/ auto diff [address] [facility], [address] [facility], [place], [address], 4 02:12:19 PSA, serum or plasma [address] [facility], [address] [facility], [place], [address], 4 16:18:31 Referral None recorded. Procedures None recorded. Surgeries None recorded. Imaging None recorded. Medication Orders pantoprazol e 40 mg tablet,devin yed release 2023 024 [id number], [address], [place], [place], [id number], 4 17:15:42 sucralfate 1 gram tablet 2023 024 [id number], [address], [place], [place], [id number], 5 12:06:46 tamsulosin 0.4 mg capsule 2023 024 [id number], [address], [place], [place], [id number], 17:15:42 Patient TargetsNo targets recorded. Patient Instructions Encounter Date Encounter Id Patient Instructions Last Modified By Organization Details Last Modified Time 07/04/2023 [id number] dementia rating scale-2* [email or web address] Not available 07/04/2023 15:59:59 alcohol misuse* Not available 07/04/2023 16:00:00 depression screening* Not available 07/04/2023 16:00:00 Timed Up and Go test (TUG)* [email or web address] Not available 07/04/2023 16:00:00 multi-dimensiona health assessment questionnaire* [email or web address] Not available 07/04/2023 16:00:00 Personalized Hea lth [...] Depression Screening: Negative I have no recommendations [email or web address] Not available 07/04/2023 15:40:57 Medicare wellnes s [...] pelvis with contrast for right flank pain [email or web address] Not available 07/04/2023 15:59:21 12/26/2023 [id number] GERD, benign prostatic hypertrophy, testicular hypofunction chronic [...] recognize, using context, where substitutions have occurred. [email or web address] Not available 12/26/2023 17:15:30 04/30/2024 [id number] Follow-up GERD, hyperlipidemia, history of colon polyps [...] Created: Ayo Huber M.D. 04.30.2024 01:47 PM [email or web address] Not available 04/30/2024 14:47:02 07/11/2024 [id number] Chronic pain syndrome, GERD, benign prostatic hypertrophy. [...] colon cancer. Keep Appointment: Tue 01:50 PM Gem Portions of record are template driven. When necessary additional context will be provided. Additionally some portions have been created with voice recognition software. Occasional wrong-word or s ound-a-like substitutions may have occurred due to the inherent limitations of voice recognition software. Read the chart carefully and recognize, using context, where substitutions may have occurred. Created: Ayo Huber M.D. 07.11.2024 11:22 AM [email or web address] Not available 07/11/2024 12:22:52 09/03/2024 [id number] Follow-up GERD, hyperlipidemia, chronic pain syndrome all [...] Created: Ayo Huber M.D. 09.03.2024 02:18 PM [email or web address] Not available 09/03/2024 15:18:28 Reason for Referral None Reported. Results Created Date Observation Date Name Description Value Unit Range Abnormal Flag Note LastModifiedBy Organization Detail LastModifiedTime 06/28/19 24 06/28/2023 CBC/C OMPLE TE BLD COUNT W/DIF F white blood cells 4.8 x10'3 /uL 4.2-10 .8 Not Available [facility] (Lab) [address] [place], [address], 06/28/2023 17:08:12 06/28/19 24 06/28/2023 CBC/C OMPLE TE BLD COUNT W/DIF F red blood cells 4.57 x10'6 /uL 4.10-5 .80 Not Available [facility] (Lab) [address] [place], [address], 06/28/2023 17:08:12 06/28/19 24 06/28/2023 CBC/C OMPLE TE BLD COUNT W/DIF F hemoglobin 13.8 g/dL 13.2-1 7.0 Not Available [facility] (Lab) [address] [place], [address], 06/28/2023 17:08:12 06/28/19 24 06/28/2023 CBC/C OMPLE TE BLD COUNT W/DIF F hematocrit 43.0 % 39.3-5 0.0 Not Available [facility] (Lab) [address] [place], [address], 06/28/2023 17:08:12 06/28/19 24 06/28/2023 CBC/C OMPLE TE BLD COUNT W/DIF F mean red cell volume 94.1 fL 80.0-9 7.0 Not Available [facility] (Lab) [address] [place], [address], 06/28/2023 17:08:12 02/13/20 24 06/28/2023 CBC/C OMPLE TE BLD COUNT W/DIF F mean red cell hemoglobin 30.2 pg 27.0-3 3.0 Not Available [facility] (Lab) [address] [place], [address], 06/28/2023 17:08:12 06/28/19 24 06/28/2023 CBC/C OMPLE TE BLD COUNT W/DIF F mean RBC HGB concentratio n 32.1 g/dL 31.0-3 6.0 Not Available [facility] (Lab) [address] [place], [address], 06/28/2023 17:08:12 06/28/19 24 06/28/2023 CBC/C OMPLE TE BLD COUNT W/DIF F red cell distribution width 13.2 % 11.8-1 5.5 Not Available [facility] (Lab) [address] [place], [address], 06/28/2023 17:08:12 06/28/19 24 06/28/2023 CBC/C OMPLE TE BLD COUNT W/DIF F platelets 107 x10'3 /uL 150-40 0 low Not Available [facility] (Lab) [address] [place], [address], 06/28/2023 17:08:12 06/28/19 24 06/28/2023 CBC/C OMPLE TE BLD COUNT W/DIF F mean platelet volume 13.3 fL 9.0-12 .4 high Not Available [facility] (Lab) [address] [place], [address], 06/28/2023 17:08:12 06/28/19 24 06/28/2023 CBC/C OMPLE TE BLD COUNT W/DIF F neutrophils 57.7 % 39.0-7 2.0 Not Available [facility] (Lab) [address] [place], [address], 06/28/2023 17:08:12 06/28/19 24 06/28/2023 CBC/C OMPLE TE BLD COUNT W/DIF F lymphocytes 26.6 % 16.0-4 7.0 Not Available [facility] (Lab) [address] [place], [address], 06/28/2023 17:08:12 06/28/19 24 06/28/2023 CBC/C OMPLE TE BLD COUNT W/DIF F monocytes 9.0 % 5.0-12 .0 Not Available [facility] (Lab) [address] [place], [address], 06/28/2023 17:08:12 06/28/19 24 06/28/2023 CBC/C OMPLE TE BLD COUNT W/DIF F eosinophils 5.9 % 1.0-7. 0 Not Available [facility] (Lab) [address] [place], [address], 06/28/2023 17:08:12 06/28/19 24 06/28/2023 CBC/C OMPLE TE BLD COUNT W/DIF F basophils 0.6 % 0.0-2. 0 Not Available [facility] (Lab) [address] [place], [address], 06/28/2023 17:08:12 06/28/19 24 06/28/2023 CBC/C OMPLE TE BLD COUNT W/DIF F immature granulocytes 0.2 % 0.00-0 .50 Not Available [facility] (Lab) [address] [place], [address], 06/28/2023 17:08:12 06/28/19 24 06/28/2023 CBC/C OMPLE TE BLD COUNT W/DIF F neutrophils, absolute count 2.76 x10'3 /uL 1.5-8. 0 Not Available [facility] (Lab) [address] [place], [address], 06/28/2023 17:08:12 06/28/19 24 06/28/2023 CBC/C OMPLE TE BLD COUNT W/DIF F lymphocytes, absolute count 1.27 x10'3 /uL 1.07-3 .43 Not Available [facility] (Lab) [address] [place], [address], 06/28/2023 17:08:12 06/28/19 24 06/28/2023 CBC/C OMPLE TE BLD COUNT W/DIF F monocytes, absolute count 0.43 x10'3 /uL 0.29-0 .99 Not Available [facility] (Lab) [address] [place], [address], 06/28/2023 17:08:12 06/28/19 24 06/28/2023 CBC/C OMPLE TE BLD COUNT W/DIF F eosinophils, absolute count 0.28 x10'3 /uL 0.02-0 .53 Not Available [facility] (Lab) [address] [place], [address], 06/28/2023 17:08:12 06/28/19 24 06/28/2023 CBC/C OMPLE TE BLD COUNT W/DIF F basophils, absolute count 0.03 x10'3 /uL 0.01-0 .08 Not Available [facility] (Lab) [address] [place], [address], 06/28/2023 17:08:12 06/28/19 24 06/28/2023 CBC/C OMPLE TE BLD COUNT W/DIF F immature granulocytes ,absolute 0.01 x10'3 /uL 0.00-0 .05 Not Available [facility] (Lab) [address] [place], [address], 06/28/2023 17:08:12 06/28/19 24 06/28/2023 CBC/C OMPLE TE BLD COUNT W/DIF F nucleated red blood cells 0.0 % -0 Not Available [facility] (Lab) [address] [place], [address], 06/28/2023 17:08:12 06/28/19 24 06/28/2023 CBC/C OMPLE TE BLD COUNT W/DIF F NRBC# 0.00 x10'3 /uL Not Available [facility] (Lab) [address] [place], [address], 06/28/2023 17:08:12 06/28/19 24 06/28/2023 COMPR EHENS DOMI METAB OLIC PANEL sodium 139 mmol/ L 137-14 5 Not Available [facility] (Lab) [address] [place], [address], 06/28/2023 17:15:25 06/28/19 24 06/28/2023 COMPR EHENS DOMI METAB OLIC PANEL potassium 4.5 mmol/ L 3.5-5. 1 Not Available [facility] (Lab) [address] [place], [address], 06/28/2023 17:15:25 06/28/19 24 06/28/2023 COMPR EHENS DOMI METAB OLIC PANEL chloride 105 mmol/ L 98-107 Not Available [facility] (Lab) [address] [place], [address], 06/28/2023 17:15:25 06/28/19 24 06/28/2023 COMPR EHENS DOMI METAB OLIC PANEL carbon dioxide 27 mmol/ L 22-30 Not Available [facility] (Lab) [address] [place], [address], 06/28/2023 17:15:25 06/28/19 24 06/28/2023 COMPR EHENS DOMI METAB OLIC PANEL anion gap 11.5 mmol/ L 14-22 low Not Available [facility] (Lab) [address] [place], [address], 06/28/2023 17:15:25 06/28/19 24 06/28/2023 COMPR EHENS DOMI METAB OLIC PANEL glucose 94 mg/dL 70-99 Not Available [facility] (Lab) [address] [place], [address], 06/28/2023 17:15:25 06/28/19 24 06/28/2023 COMPR EHENS DOMI METAB OLIC PANEL BUN 17 mg/dL 8-19 Not Available [facility] (Lab) [address] [place], [address], 06/28/2023 17:15:25 06/28/19 24 06/28/2023 COMPR EHENS DOMI METAB OLIC PANEL creatinine 0.77 mg/dL 0.66-1 .25 Not Available [facility] (Lab) [address] [place], [address], 06/28/2023 17:15:25 06/28/19 24 06/28/2023 COMPR EHENS DOMI METAB OLIC PANEL GFR >60 Refer ence Range : [place] ge GFR Healt hy Adult : >60 [...] calcu lator is avail able on the [facility] websi te: https ://farzana adams.maxi flores/james ofess ional s/kdo qi/gf r_cal culat or Not Available [facility] (Lab) [address] [place], [address], 06/28/2023 17:15:25 06/28/19 24 06/28/2023 COMPR EHENS ODMI METAB OLIC PANEL alkaline phosphatase 72 U/L 38-126 Not Available [facility] (Lab) [address] [place], [address], 06/28/2023 17:15:25 06/28/19 24 06/28/2023 COMPR EHENS DOMI METAB OLIC PANEL alanine aminotransfe rase 35 U/L 0-50 Not Available [facility] (Lab) [address] [place], [address], 06/28/2023 17:15:25 06/28/19 24 06/28/2023 COMPR EHENS DOMI METAB OLIC PANEL aspartate aminotransfe rase 44 U/L 15-46 Not Available [facility] (Lab) [address] [place], [address], 06/28/2023 17:15:25 06/28/19 24 06/28/2023 COMPR EHENS DOMI METAB OLIC PANEL bilirubin, total 0.40 mg/dL 0.20-1 .30 Not Available [facility] (Lab) [address] [place], [address], 06/28/2023 17:15:25 06/28/19 24 06/28/2023 COMPR EHENS DOMI METAB OLIC PANEL calcium 9.3 mg/dL 8.4-10 .2 Not Available [facility] (Lab) [address] [place], [address], 06/28/2023 17:15:25 06/28/19 24 06/28/2023 COMPR EHENS DOMI METAB OLIC PANEL total protein 6.4 g/dL 6.3-8. 2 Not Available [facility] (Lab) [address] [place], [address], 06/28/2023 17:15:25 06/28/19 24 06/28/2023 COMPR EHENS DOMI METAB OLIC PANEL albumin 4.2 g/dL 3.0-4. 4 Not Available [facility] (Lab) [address] [place], [address], 06/28/2023 17:15:25 06/28/19 24 06/28/2023 COMPR EHENS DOMI METAB OLIC PANEL globulin 2.2 g/dL 2.6-4. 2 low Not Available [facility] (Lab) [address] [place], [address], 06/28/2023 17:15:25 06/28/19 24 06/28/2023 COMPR EHENS DOMI METAB OLIC PANEL A/G ratio 1.9 ratio 1.0-2. 0 Not Available [facility] (Lab) [address] [place], [address], 06/28/2023 17:15:25 06/28/19 24 06/28/2023 LIPAS E SERUM lipase 100 U/L 23-300 Not Available [facility] (Lab) [address] [place], [address], 06/28/2023 17:15:27 06/28/19 24 06/28/2023 AMYLA SE SERUM amylase 47 U/L 30-110 Not Available [facility] (Lab) [address] [place], [address], 06/28/2023 17:15:31 07/13/19 24 07/16/2023 TESTO STERO NE, FREE, BIOAV AILAB LE AND TOTAL , MS albumin 4.4 g/dL 3.6-5. 1 Not Available [address], [address], 07/16/2023 16:18:30 07/13/19 24 07/16/2023 TESTO STERO NE, FREE, BIOAV AILAB LE AND TOTAL , MS sex hormone binding globulin 52.2 nmol/ L 22-77 Not Available [address], [address], 07/16/2023 16:18:30 07/13/19 24 07/16/2023 TESTO STERO NE, FREE, BIOAV AILAB LE AND TOTAL , MS testosterone , free 34.7 pg/mL 46.0-2 24.0 low Not Available [address], [address], 07/16/2023 16:18:30 07/13/19 24 07/16/2023 TESTO STERO NE, FREE, BIOAV AILAB LE AND TOTAL , MS testosterone ,bioavailabl e 69.8 NG/dL 110.0- 575.0 low Not Available [address], [address], 07/16/2023 16:18:30 07/13/19 24 07/16/2023 TESTO STERO [...] to https ://ed lee ann on.qu phill Veniti. com/f aq/FA C188 (This link is being provi ded for infor noel nal/e ducat ional purpo ses only. ) (Note ) This test was devel oped and its pato tical perfo rmanc e omaira cteri stics have been deter mined by [employer]. It has not been clear ed or appro monty by the FDA. This assay has been valid ated pursu ant to the CLIA regul ation s and is used for clini julieth purpo ses. MDF med fusio n [address] [facility] [address] [place] [address] [phone] Elijah angelo MD Not Available [facility] [address] [place], [address], 07/16/2023 16:18:30 07/13/19 24 07/16/2023 PSA, TOTAL [...] absen ce of disea se. Not Available [facility] [address] [address], [place], [address], 07/16/2023 16:18:31 08/16/19 24 08/17/2023 VITAM IN [...] pg/mL will have sympt oms. Not Available [facility] [address] [address] [place], [address], 08/17/2023 08:21:51 05/04/20 24 05/05/2024 LIPID PANEL , STAND SERGIO cholesterol, total 120 mg/dL <200 normal Not Available [facility] [address] [address] [place], [address], 05/05/2024 02:12:17 05/04/20 24 05/05/2024 LIPID PANEL , STAND SERGIO HDL cholesterol 71 mg/dL > or = 40 normal Not Available [facility] [address] [address] [place], [address], 05/05/2024 02:12:17 05/04/20 24 05/05/2024 LIPID PANEL , STAND SERGIO triglyceride s 34 mg/dL <150 normal Not Available [facility] [address] [address] [place], [address], 05/05/2024 02:12:17 05/04/20 24 05/05/2024 LIPID PANEL [...] agnos tics. com/f aq/FA Q164) Not Available [address] [address] [place], [address], 05/05/2024 02:12:17 05/04/20 24 05/05/2024 LIPID PANEL , STAND SERGIO chol/HDLC ratio 1.7 (calc ) <5.0 normal Not Available [address] [address] [place], [address], 05/05/2024 02:12:17 05/04/20 24 05/05/2024 LIPID PANEL , STAND SERGIO non HDL cholesterol 49 mg/dL _(julieth c) <130 normal For patie nts with diabe noe plus 1 major ASCVD risk facto r, treat ing to a non-H DL-C goal of <100 mg/dL (LDL- C of <70 mg/dL ) is consi anjelicad a thera pematt c optio n. Not Available [address] [address] [address] , [place], [address], 05/05/2024 02:12:17 05/04/20 24 05/05/2024 COMPR EHENS DOMI METAB OLIC PANEL glucose 88 mg/dL 65-99 normal Fasti ng refer ence inter igor Not Available [address] [address] [place], [address], 05/05/2024 02:12:18 05/04/20 24 05/05/2024 COMPR EHENS DOMI METAB OLIC PANEL urea nitrogen (BUN) 14 mg/dL 7-25 normal Not Available [address] [address] [place], [address], 05/05/2024 02:12:18 05/04/20 24 05/05/2024 COMPR EHENS DOMI METAB OLIC PANEL creatinine 0.99 mg/dL 0.70-1 .35 normal Not Available [address] [address] [place], [address], 05/05/2024 02:12:18 05/04/20 24 05/05/2024 COMPR EHENS DOMI METAB OLIC PANEL eGFR 82 mL/mi n/1.7 3m2 > or = 60 normal Not Available [address], [address], 05/05/2024 02:12:18 05/04/20 24 05/05/2024 COMPR EHENS DOMI METAB OLIC PANEL BUN/creatini ne ratio SEE NOTE: (calc ) 6-22 Not Repor elis: BUN and Creat inine are withi n refer ence range . Not Available [address], [address], 05/05/2024 02:12:18 05/04/20 24 05/05/2024 COMPR EHENS DOMI METAB OLIC PANEL sodium 141 mmol/ L 135-14 6 normal Not Available [address], [address], 05/05/2024 02:12:18 05/04/20 24 05/05/2024 COMPR EHENS DOMI METAB OLIC PANEL potassium 4.3 mmol/ L 3.5-5. 3 normal Not Available [address], [address], 05/05/2024 02:12:18 05/04/20 24 05/05/2024 COMPR EHENS DOMI METAB OLIC PANEL chloride 105 mmol/ L 98-110 normal Not Available [address], [address], 05/05/2024 02:12:18 05/04/20 24 05/05/2024 COMPR EHENS DOMI METAB OLIC PANEL carbon dioxide 30 mmol/ L 20-32 normal Not Available [address], [address], 05/05/2024 02:12:18 05/04/20 24 05/05/2024 COMPR EHENS DOMI METAB OLIC PANEL calcium 9.2 mg/dL 8.6-10 .3 normal Not Available [address], [address], 05/05/2024 02:12:18 05/04/20 24 05/05/2024 COMPR EHENS DOMI METAB OLIC PANEL protein, total 6.6 g/dL 6.1-8. 1 normal Not Available [address], [address], 05/05/2024 02:12:18 05/04/20 24 05/05/2024 COMPR EHENS DOMI METAB OLIC PANEL albumin 4.5 g/dL 3.6-5. 1 normal Not Available [address], [address], 05/05/2024 02:12:18 05/04/20 24 05/05/2024 COMPR EHENS DOMI METAB OLIC PANEL globulin 2.1 g/dL_ (calc ) 1.9-3. 7 normal Not Available [address], [address], 05/05/2024 02:12:18 05/04/20 24 05/05/2024 COMPR EHENS DOMI METAB OLIC PANEL albumin/glob ulin ratio 2.1 (calc ) 1.0-2. 5 normal Not Available [address], [address], 05/05/2024 02:12:18 05/04/20 24 05/05/2024 COMPR EHENS DOMI METAB OLIC PANEL bilirubin, total 0.6 mg/dL 0.2-1. 2 normal Not Available [address], [address], 05/05/2024 02:12:18 05/04/20 24 05/05/2024 COMPR EHENS DOMI METAB OLIC PANEL alkaline phosphatase 61 U/L 35-144 normal Not Available [facility] [employer] [address], [address], 05/05/2024 02:12:18 05/04/20 24 05/05/2024 COMPR EHENS DOMI METAB OLIC PANEL AST 21 U/L 10-35 normal Not Available [address], [address], 05/05/2024 02:12:18 05/04/20 24 05/05/2024 COMPR EHENS DOMI METAB OLIC PANEL ALT 17 U/L 9-46 normal Not Available [address], [address], 05/05/2024 02:12:18 05/04/20 24 05/05/2024 CBC (INCL UDES DIFF/ PLT) white blood cell count 4.0 thous and/u L 3.8-10 .8 normal Not Available [address], [address], 05/05/2024 02:12:19 05/04/20 24 05/05/2024 CBC (INCL UDES DIFF/ PLT) red blood cell count 4.79 mirza on/uL 4.20-5 .80 normal Not Available [address], [address], 05/05/2024 02:12:19 05/04/20 24 05/05/2024 CBC (INCL UDES DIFF/ PLT) hemoglobin 14.3 g/dL 13.2-1 7.1 normal Not Available [address], [address], 05/05/2024 02:12:19 05/04/20 24 05/05/2024 CBC (INCL UDES DIFF/ PLT) hematocrit 45.8 % 38.5-5 0.0 normal Not Available [address], [address], 05/05/2024 02:12:19 05/04/20 24 05/05/2024 CBC (INCL UDES DIFF/ PLT) MCV 95.6 fL 80.0-1 00.0 normal Not Available [address], [address], 05/05/2024 02:12:19 05/04/20 24 05/05/2024 CBC (INCL UDES DIFF/ PLT) MCH 29.9 pg 27.0-3 3.0 normal Not Available [address], [address], 05/05/2024 02:12:19 05/04/20 24 05/05/2024 CBC (INCL UDES DIFF/ PLT) MCHC 31.2 g/dL 32.0-3 6.0 low For adult s, a sligh t decre ase in the calcu lated MCHC value (in the range of 30 to 32 g/dL) is most likel y not clini mary signi lolly t; bennie er, it shoul d be inter prete d with cauti on in [facility] n with other red cell renaldo eters and the patie nt's clini julieth condi tion. Not Available [address], [address], 05/05/2024 02:12:19 05/04/20 24 05/05/2024 CBC (INCL UDES DIFF/ PLT) RDW 13.0 % 11.0-1 5.0 normal Not Available [address], [address], 05/05/2024 02:12:19 05/04/20 24 05/05/2024 CBC (INCL UDES DIFF/ PLT) platelet count 109 thous and/u L 140-40 0 low Not Available [address], [address], 05/05/2024 02:12:19 05/04/20 24 05/05/2024 CBC (INCL UDES DIFF/ PLT) MPV 13.3 fL 7.5-12 .5 high Not Available [address] [place], [address], 05/05/2024 02:12:19 05/04/20 24 05/05/2024 CBC (INCL UDES DIFF/ PLT) absolute neutrophils 1828 cells /uL 1500-7 800 normal Not Available [address], [address], 05/05/2024 02:12:19 05/04/20 24 05/05/2024 CBC (INCL UDES DIFF/ PLT) absolute lymphocytes 1548 cells /uL 850-39 00 normal Not Available [address], [address], 05/05/2024 02:12:19 05/04/20 24 05/05/2024 CBC (INCL UDES DIFF/ PLT) absolute monocytes 300 cells /uL 200-95 0 normal Not Available [address], [address], 05/05/2024 02:12:19 05/04/20 24 05/05/2024 CBC (INCL UDES DIFF/ PLT) absolute eosinophils 292 cells /uL 15-500 normal Not Available [address], [address], 05/05/2024 02:12:19 05/04/20 24 05/05/2024 CBC (INCL UDES DIFF/ PLT) absolute basophils 32 cells /uL 0-200 normal Not Available [address], [address], 05/05/2024 02:12:19 05/04/20 24 05/05/2024 CBC (INCL UDES DIFF/ PLT) neutrophils 45.7 % normal Not Available [address], [address], 05/05/2024 02:12:19 05/04/20 24 05/05/2024 CBC (INCL UDES DIFF/ PLT) lymphocytes 38.7 % normal Not Available [address], [address], 05/05/2024 02:12:19 05/04/20 24 05/05/2024 CBC (INCL UDES DIFF/ PLT) monocytes 7.5 % normal Not Available [address], [address], 05/05/2024 02:12:19 05/04/20 24 05/05/2024 CBC (INCL UDES DIFF/ PLT) eosinophils 7.3 % normal Not Available [address], [address], 05/05/2024 02:12:19 05/04/20 24 05/05/2024 CBC (INCL UDES DIFF/ PLT) basophils 0.8 % normal Not Available [address], [address], 05/05/2024 02:12:19 05/24/19 25 05/25/2024 CBC (INCL UDES DIFF/ PLT) white blood cell count 4.5 thous and/u L 3.8-10 .8 normal Not Available [address], [address], 05/25/2024 07:42:19 05/24/1905/25/2024 CBC (INCL UDES DIFF/ PLT) red blood cell count 4.61 mirza on/uL 4.20-5 .80 normal Not Available [address], [address], 05/25/2024 07:42:19 05/24/1905/25/2024 CBC (INCL UDES DIFF/ PLT) hemoglobin 13.9 g/dL 13.2-1 7.1 normal Not Available [address], [address], 05/25/2024 07:42:19 05/24/1905/25/2024 CBC (INCL UDES DIFF/ PLT) hematocrit 44.2 % 38.5-5 0.0 normal Not Available [address], [address], 05/25/2024 07:42:19 05/24/1905/25/2024 CBC (INCL UDES DIFF/ PLT) MCV 95.9 fL 80.0-1 00.0 normal Not Available [address], [address], 05/25/2024 07:42:05/24/1905/25/2024 CBC (INCL UDES DIFF/ PLT) MCH 30.2 pg 27.0-3 3.0 normal Not Available [address], [address], 05/25/2024 07:42:19 05/24/1905/25/2024 CBC (INCL UDES DIFF/ [...] nt's clini julieth condi tion. Not Available [address], [address], 05/25/2024 07:42:19 05/24/1905/25/2024 CBC (INCL UDES DIFF/ PLT) RDW 13.2 % 11.0-1 5.0 normal Not Available [address], [address], 05/25/2024 07:42:19 05/24/1905/25/2024 CBC (INCL UDES DIFF/ PLT) platelet count 123 thous and/u L 140-40 0 low Not Available [address], [address], 05/25/2024 07:42:19 05/24/1905/25/2024 CBC (INCL UDES DIFF/ PLT) MPV 12.8 fL 7.5-12 .5 high Not Available [address], [address], 05/25/2024 07:42:19 05/24/1905/25/2024 CBC (INCL UDES DIFF/ PLT) absolute neutrophils 2880 cells /uL 1500-7 800 normal Not Available [address], [address], 05/25/2024 07:42:19 05/24/1905/25/2024 CBC (INCL UDES DIFF/ PLT) absolute lymphocytes 1058 cells /uL 850-39 00 normal Not Available [address], [address], 05/25/2024 07:42:19 05/24/1905/25/2024 CBC (INCL UDES DIFF/ PLT) absolute monocytes 320 cells /uL 200-95 0 normal Not Available [address], [address], 05/25/2024 07:42:19 05/24/1905/25/2024 CBC (INCL UDES DIFF/ PLT) absolute eosinophils 212 cells /uL 15-500 normal Not Available [employer] [address], [address], 05/25/2024 07:42:19 05/24/1905/25/2024 CBC (INCL UDES DIFF/ PLT) absolute basophils 32 cells /uL 0-200 normal Not Available [employer] [address], [address], 05/25/2024 07:42:19 05/24/1905/25/2024 CBC (INCL UDES DIFF/ PLT) neutrophils 64 % normal Not Available [address], [address], 05/25/2024 07:42:19 05/24/1905/25/2024 CBC (INCL UDES DIFF/ PLT) lymphocytes 23.5 % normal Not Available [address], [address], 05/25/2024 07:42:19 05/24/1905/25/2024 CBC (INCL UDES DIFF/ PLT) monocytes 7.1 % normal Not Available [address], [address], 05/25/2024 07:42:19 05/24/1905/25/2024 CBC (INCL UDES DIFF/ PLT) eosinophils 4.7 % normal Not Available [address], [address], 05/25/2024 07:42:19 05/24/1905/25/2024 CBC (INCL UDES DIFF/ PLT) basophils 0.7 % normal Not Available [address], [address], 05/25/2024 07:42:19 05/24/1905/25/2024 VITAM IN B12/F OLATE [...] have sympt oms. Not Available [facility] [address] [place], [address], 05/25/2024 07:42:23 05/24/1905/25/2024 VITAM IN B12/F OLATE , SERUM PANEL folate, serum 12.4 NG/mL normal Refer ence Range Low: <3.4 Borde rline : 3.4-5 .4 Vicki l: >5.4 Not Available [facility] [address] [address], [place], [address], 05/25/2024 07:42:23 06/25/19 25 06/28/2024 TESTO STERO NE, TOTAL , MS testosterone , total, MS 400 NG/dL 250-11 00 For addit ional infor chris akhtar refer to https ://ed ucati on.qu [employer]. Fundation/f aq/To Heath mandel LCMSM S (This link is being provi ded for infor noel nal/e ducat ional purpo ses only. ) (Note ) This test was devel oped and its pato tical perfo rmanc e omaira cteri stics have been deter mined by [employer]. It has not been clear ed or appro monty by the FDA. This assay has been valid ated pursu ant to the CLIA regul ation s and is used for clini julieth purpo ses. MDF med fuscristal n [address] [facility] [address] [facility] [address] [phone] Kavon Kingsley MD, PhD Not Available [facility] [address] [address], [place], [address], 06/28/2024 16:42:40 07/12/1907/13/2024 COMPR EHENS DOMI METAB OLIC PANEL , PLASM A glucose 109 mg/dL 65-139 normal Non-f astin g refer ence inter igor Not Available [facility] [address] [address], [place], [address], 07/13/2024 05:15:29 07/12/19 25 07/13/2024 COMPR EHENS DOMI METAB OLIC PANEL , PLASM A urea nitrogen (BUN) 15 mg/dL 7-25 normal Not Available [address], [address], 07/13/2024 05:15:29 07/12/1907/13/2024 COMPR EHENS DOMI METAB OLIC PANEL , PLASM A creatinine 0.89 mg/dL 0.70-1 .35 normal Not Available [facility] [address], [address], 07/13/2024 05:15:29 07/12/1907/13/2024 COMPR EHENS DOMI METAB OLIC PANEL , PLASM A eGFR 93 mL/mi n/1.7 3m2 > or = 60 normal Not Available [address], [address], 07/13/2024 05:15:29 07/12/1907/13/2024 COMPR EHENS DOMI METAB OLIC PANEL , PLASM A BUN/creatini ne ratio SEE NOTE: (calc ) 6-22 Not Repor elis: BUN and Creat inine are withi n refer ence range . Not Available [address], [address], 07/13/2024 05:15:29 07/12/1907/13/2024 COMPR EHENS DOMI METAB OLIC PANEL , PLASM A sodium 138 mmol/ L 135-14 6 normal Not Available [facility] [address] [place], [address], 07/13/2024 05:15:29 07/12/1907/13/2024 COMPR EHENS DOMI METAB OLIC PANEL , PLASM A potassium 4.2 mmol/ L 3.4-4. 8 normal Not Available [facility] [address], [address], 07/13/2024 05:15:29 07/12/19 25 07/13/2024 COMPR EHENS DOMI METAB OLIC PANEL , PLASM A chloride 106 mmol/ L 98-110 normal Not Available [address], [address], 07/13/2024 05:15:29 07/12/19 25 07/13/2024 COMPR EHENS DOMI METAB OLIC PANEL , PLASM A carbon dioxide 25 mmol/ L 20-32 normal Not Available [address], [address], 07/13/2024 05:15:07/12/1907/13/2024 COMPR EHENS DOMI METAB OLIC PANEL , PLASM A calcium 9.2 mg/dL 8.6-10 .3 normal Not Available [address], [address], 07/13/2024 05:15:29 07/12/19 25 07/13/2024 COMPR EHENS DOMI METAB OLIC PANEL , PLASM A protein, total 7.0 g/dL 6.4-8. 4 normal Not Available [address], [address], 07/13/2024 05:15:29 07/12/19 25 07/13/2024 COMPR EHENS DOMI METAB OLIC PANEL , PLASM A albumin 4.6 g/dL 3.6-5. 1 normal Not Available [address], [address], 07/13/2024 05:15:29 07/12/1907/13/2024 COMPR EHENS DOMI METAB OLIC PANEL , PLASM A globulin 2.4 g/dL_ (calc ) 2.2-4. 0 normal Not Available [address], [address], 07/13/2024 05:15:29 07/12/19 25 07/13/2024 COMPR EHENS DOMI METAB OLIC PANEL , PLASM A albumin/glob ulin ratio 1.9 (calc ) 0.9-2. 3 normal Not Available [address], [address], 07/13/2024 05:15:29 07/12/1907/13/2024 COMPR EHENS DOMI METAB OLIC PANEL , PLASM A bilirubin, total 0.6 mg/dL 0.2-1. 2 normal Not Available [address], [address], 07/13/2024 05:15:29 07/12/1907/13/2024 COMPR EHENS DOMI METAB OLIC PANEL , PLASM A alkaline phosphatase 59 U/L 35-144 normal Not Available [address], [address], 07/13/2024 05:15:29 07/12/19 25 07/13/2024 COMPR EHENS DOMI METAB OLIC PANEL , PLASM A AST 27 U/L 10-35 normal Not Available [address], [address], 07/13/2024 05:15:29 07/12/1907/13/2024 COMPR EHENS DOMI METAB OLIC PANEL , PLASM A ALT 21 U/L 9-46 normal Not Available [address], [address], 07/13/2024 05:15:29 07/12/1907/13/2024 CBC (INCL UDES DIFF/ PLT) white blood cell count 4.8 thous and/u L 3.8-10 .8 normal Not Available [address], [address], 07/13/2024 05:15:31 07/12/19 25 07/13/2024 CBC (INCL UDES DIFF/ PLT) red blood cell count 4.75 mirza on/uL 4.20-5 .80 normal Not Available [address], [address], 07/13/2024 05:15:31 07/12/1907/13/2024 CBC (INCL UDES DIFF/ PLT) hemoglobin 14.4 g/dL 13.2-1 7.1 normal Not Available [address], [address], 07/13/2024 05:15:31 07/12/1907/13/2024 CBC (INCL UDES DIFF/ PLT) hematocrit 44.7 % 38.5-5 0.0 normal Not Available [address], [address], 07/13/2024 05:15:31 07/12/1907/13/2024 CBC (INCL UDES DIFF/ PLT) MCV 94.1 fL 80.0-1 00.0 normal Not Available [address], [address], 07/13/2024 05:15:31 07/12/1907/13/2024 CBC (INCL UDES DIFF/ PLT) MCH 30.3 pg 27.0-3 3.0 normal Not Available [address], [address], 07/13/2024 05:15:31 07/12/19 25 07/13/2024 CBC (INCL [...] nt's clini julieth condi tion. Not Available [address] [place], [address], 07/13/2024 05:15:31 07/12/1907/13/2024 CBC (INCL UDES DIFF/ PLT) RDW 13.1 % 11.0-1 5.0 normal Not Available [address], [address], 07/13/2024 05:15:31 07/12/19 25 07/13/2024 CBC (INCL UDES DIFF/ PLT) platelet count 125 thous and/u L 140-40 0 low Not Available [address], [address], 07/13/2024 05:15:31 07/12/1907/13/2024 CBC (INCL UDES DIFF/ PLT) MPV 13.7 fL 7.5-12 .5 high Not Available [address], [address], 07/13/2024 05:15:31 07/12/19 25 07/13/2024 CBC (INCL UDES DIFF/ PLT) absolute neutrophils 2995 cells /uL 1500-7 800 normal Not Available [address], [address], 07/13/2024 05:15:31 07/12/19 25 07/13/2024 CBC (INCL UDES DIFF/ PLT) absolute lymphocytes 1214 cells /uL 850-39 00 normal Not Available [address], [address], 07/13/2024 05:15:31 07/12/19 25 07/13/2024 CBC (INCL UDES DIFF/ PLT) absolute monocytes 322 cells /uL 200-95 0 normal Not Available [address], [address], 07/13/2024 05:15:31 07/12/19 25 07/13/2024 CBC (INCL UDES DIFF/ PLT) absolute eosinophils 240 cells /uL 15-500 normal Not Available [address], [address], 07/13/2024 05:15:31 07/12/19 25 07/13/2024 CBC (INCL UDES DIFF/ PLT) absolute basophils 29 cells /uL 0-200 normal Not Available [address], [address], 07/13/2024 05:15:31 07/12/19 25 07/13/2024 CBC (INCL UDES DIFF/ PLT) neutrophils 62.4 % normal Not Available [address], [address], 07/13/2024 05:15:31 07/12/19 25 07/13/2024 CBC (INCL UDES DIFF/ PLT) lymphocytes 25.3 % normal Not Available [address], [address], 07/13/2024 05:15:31 07/12/19 25 07/13/2024 CBC (INCL UDES DIFF/ PLT) monocytes 6.7 % normal Not Available [address], [address], 07/13/2024 05:15:31 07/12/1907/13/2024 CBC (INCL UDES DIFF/ PLT) eosinophils 5.0 % normal Not Available [address], [address], 07/13/2024 05:15:31 07/12/1907/13/2024 CBC (INCL UDES DIFF/ PLT) basophils 0.6 % normal Not Available [address], [address], 07/13/2024 05:15:31 07/12/19 25 07/13/2024 T4, FREE T4, free 1.1 NG/dL 0.8-1. 8 normal Not Available [facility] [address] [address], [place], [address], 07/13/2024 05:15:32 07/12/19 25 07/13/2024 TSH TSH 2.01 mIU/L 0.40-4 .50 normal Not Available [facility] [address] [address], [place], [address], 07/13/2024 05:15:33 06/30/19 24 06/30/2023 US, abdom en, limit ed [facility] [address] [place] [address] Patien t Name: JOI STUBBS ion #: [id number] Sex: M : 1955 1 Dictat [...] at 2023 09:28: 57 AM Page [address] (Imaging) [address] [place], [address], 06/30/2023 10:33:32 07/13/19 24 07/13/2023 CT, abdom en + pelvi s, w/ contr ast No observ ation record ed. [address], [place], [address], 07/14/2023 06:44:56 07/16/19 24 07/13/2023 CT, abdom en + pelvi s, w/ contr ast No observ ation record ed. [address], [place], [address], 07/16/2023 16:49:28 11/09/19 24 11/08/2023 MRI, cervi julieth spine , w/o contr ast No observ ation record ed. [address], [place], [address], 11/09/2023 09:26:27 11/25/19 24 11/25/2023 cardi ac stres s test No observ ation record ed. [address] [facility] [address], [place], [address], 11/26/2023 09:28:40 12/26/19 24 12/23/2023 , echo ardio gram No observ ation record ed. [address] [facility] [address] [address], [place], [address], 12/26/2023 16:53:02 Result Notes None recorded. Problems Name Problem SNOMED Code Status Onset Date Resolution Date Notes Provider Name and Address Organization Details Recorded Time Abdominal pain 00197348 Active Not Available [facility] 3 14:49:44 Dysphagia 87292129 Completed Not Available [facility] 3 14:49:45 Nausea 192330101 Active Not Available [facility] 3 14:49:45 History of polyp of colon 741868366 Active Not Available [facility] 3 14:49:45 Viral hepatitis C 85693704 Active Not Available [facility] 3 14:49:45 Anxiety disorder 473851315 Active 2020 Not Available [facility] 3 14:49:44 Gastroeso phageal reflux disease 713133163 Active 2020 Not Available [facility] 3 14:49:44 Family history of cancer of colon 954820600 Active 2020 Not Available [facility] 3 14:49:45 Pain of multiple joints 60056543 Active 2020 Not Available [facility] 3 14:49:45 Chronic pain syndrome 563311265 Active 2020 Not Available [facility] 3 14:49:45 Cataract 399960351 Active 2021 Not Available [facility] 3 14:49:44 Tinnitus 50863062 Active 2021 Not Available [facility] 3 14:49:46 Pharyngit is 306722279 Active 2021 Not Available [facility] 3 14:49:45 Hyperchol esterolem ia 94247530 Active 2021 Not Available [facility] 3 14:49:44 Chronic cough 02112958 Active 2022 Not Available [facility] 3 14:49:46 Fatigue 27263406 Active 2022 Not Available [facility] 3 14:49:46 Recurrent genital herpes simplex 465760935 Active 2022 Ayo Huber MD [address] [facility], [facility] [address], [place], [address] , [facility] [employer] [facility] 3 14:06:14 Excessive gastric reflux 440516824 Active 2022 Cherri Pickens CABLE LACER null, [place] [facility] 3 11:16:29 Pain in right foot 40361674616 9107 Active 2022 Cherri Pickens CABLE LACER null, [place] [facility] [place] [facility] 3 14:50:19 Acquired pes planus of left foot 60407618960 9108 Active 2022 Jarocho Rubi MD [address], [address], [place], [address] , [facility] 3 10:05:39 Tendiniti s of left posterior tibial tendon 24910766292 9100 Active 2022 Jarocho Rubi MD [address], [address], [place], [address] , [facility] 3 10:05:52 Tendiniti s of right posterior tibial tendon 04345393737 9102 Active 2022 Jarocho Rubi MD [address], [address], [place], [address] , [facility] 3 10:06:03 Acquired pes planus of right foot 21993008368 9106 Active 2022 Jarocho Rubi MD [address], [address], [place], [address] , [facility] 3 10:06:25 Disorder of prostate 46854864 Active 2023 Ayo Huber MD [address], [address], [place], [address] , [facility] 4 15:59:01 Testicula r hypofunct ion 647962714 Active 2023 Trudy Marie null, [place] [facility] 4 16:02:33 Right flank pain 442379297 Active 2023 Trudy Marie null, [place] [facility] 4 12:33:01 Anemia 844307512 Active 2023 Stacy Montero null, [facility] 4 15:53:49 Benign prostatic hyperplas ia 661909161 Active 2023 Ayo Huber MD [address] [place] [address], [facility] [address], [place], [address] , [facility] 4 17:08:37 Esophagea l dysphagia 20626730 Active 2023 Cherri Pickens CMA null, [facility] 4 16:34:59 Atypical chest pain 563637216 Active 2023 Cherri Pickens CMA null, [facility] 4 14:26:45 Thrombocy tosis 5879228 Active 2024 Cherri Pickens CMA null, [facility] 5 14:56:10 Cobalamin deficienc y 031630958 Active 2024 Cherri Pickens CMA null, [facility] 5 14:56:36 Nasal congestio n 06771138 Active 2024 Trudy Marie null, [facility] 5 17:24:16 Problem Notes None recorded. Procedures Surgical History Date Name Laterality Status Provider Name and Address Organization Details Recorded Time 07/04/19 24 Medicare Wellness CPT Code, subsequent completed Tonya Steinberg RN [facility] 07/04/2023 15:34:01 05/16/18 79 Foot completed Dianne Carranza CNA [facility] 09/30/2022 09:41:04 Knee Replacement completed Not Available [facility] 07/14/2022 14:46:03 colonoscopy completed Not Available [facility] 07/14/2022 14:46:03 procedure on wrist completed Not Available [facility] 07/14/2022 14:46:03 Imaging Results None recorded. Procedure [...] Not Available Not Available Fluzone High-Dose Quad 2020-21 (PF) 240 mcg/0.7 mL IM syringe PHARMACIS T ADM 0.7ML IM UTD 09/16 completed Not Available Not Available Not Available Tyrvaya 0.03 mg/spray nasal spray USE 1 SPRAY IN EACH NOSTRIL TWICE DAILY 07/11 completed Not Available Not Available Not Available Vitals Date Recorded Body height Body mass index (BMI) Body weight Heart rate Body temperature Oxygen saturation Systolic And Diastolic Provider Name and Address Organization Details Last Updated DateTime 4 187.96 cm 25.2 kg/m2 31892.1 g 71 /min 97 [degF] 98 % 112/64 mm[Hg] [employer] 4 15:28:30 Date Recorded Pain severity - 0-10 verbal numeric rating [Score] - Reported Provider Name and Address Organization Details Last Updated DateTime 07/04/2023 4 Tonya Steinberg, LIANG [employer] [facility] [employer] 07/04/2023 15:34:19 Date Recorded Body height Body mass index (BMI) Body weight Heart rate Body temperature Oxygen saturation Systolic And Diastolic Provider Name and Address Organization Details Last Updated DateTime 5 187.96 cm 24.3 kg/m2 29060.7 5 g 73 /min 97 [degF] 96 % 118/72 mm[Hg] [employer] 5 12:06:18 Date Recorded Body height Body mass index (BMI) Body weight Heart rate Body temperature Oxygen saturation Systolic And Diastolic Provider Name and Address Organization Details Last Updated DateTime 5 180.34 cm 26.6 kg/m2 71488.1 4 g 69 /min 97 [degF] 97 % 120/78 mm[Hg] [facility] 5 15:04:20 Date Recorded Body height Body mass index (BMI) Body weight Heart rate Body temperature Oxygen saturation Systolic And Diastolic Provider Name and Address Organization Details Last Updated DateTime 4 187.96 cm 24.5 kg/m2 15997.3 5 g 63 /min 97.6 [degF] 98 % 120/80 mm[Hg] DENISE Ordonez [facility] [employer] 4 17:04:10 Date Recorded Body height Body mass index (BMI) Body weight Heart rate Body temperature Oxygen saturation Systolic And Diastolic Provider Name and Address Organization Details Last Updated DateTime 4 187.96 cm 24.5 kg/m2 03441.1 4 g 77 /min 97 [degF] 98 % 128/70 mm[Hg] DENISE Ordonez [employer] 4 14:36:53 Social History Question Answer Notes LastModified by Organizat ion Details LastModified Time Tobacco Smoking Status Never Smoker Not Available [facility] 07/14/2022 14:45:19 Do You Have An Advance Directive? No MIGRATION.87499 [id number] Information not available 07/14/2022 Do You Wear A Helmet When Biking? No MIGRATION.57300 617[address] Information not available 07/14/2022 Are You Blind Or Do You Have Difficulty Seeing? No MIGRATION.86263 78885 Information not available 07/14/2022 What Is Your Level Of Caffeine Consumption? Occasional MIGRATION.21674 40175 Information not available 07/14/2022 How Much Tobacco Do You Chew? None MIGRATION.54382 81182 Information not available 07/14/2022 In The 14 Days Before Symptom Onset, Have You Had Close Contact With A Laboratory-confir med COVID-19 While That Case Was Ill? No MIGRATION.28249 17679 Information not available 07/14/2022 In The 14 Days Before Symptom Onset, Have You Had Close Contact With A Person Who Is Under Investigation For COVID-19 While That Person Was Ill? No MIGRATION.40319 87955 Information not available 07/14/2022 Are You Deaf Or Do You Have Serious Difficulty Hearing? No MIGRATION.20930 10642 Information not available 07/14/2022 What Type Of Diet Are You Following? REGULAR MIGRATION.11795 08325 Information not available 07/14/2022 Have There Been Any Changes To Your Family Or Social Situation? No MIGRATION.51304 52958 Information not available 07/14/2022 What Is The Fluoride Status Of Your Home? Unknown MIGRATION.00393 [address] Information not available 07/14/2022 Are There Any Guns Present In Your Home? Yes MIGRATION.70391 67265 Information not available 07/14/2022 Do You Use Insect Repellent Routinely? No MIGRATION.48593 75076 Information not available 07/14/2022 Where Do You Live? [place]LevelHouse MIGRATION.85925 52227 Information not available 07/14/2022 Guns Present In The Home? Yes [email or web address] Information not available 07/04/2023 Are You Able To Care For Yourself? Yes [email or web address] Information not available 07/04/2023 Are You Blind Or Do Yo Have Difficulty Seeing? No [email or web address] Information not available 07/04/2023 Are You Deaf Or Do You Have Serious Difficulty Hearing? No [email or web address] Information not available 07/04/2023 Live Alone Of With Others? With Others [email or web address] Information not available 07/04/2023 Do You Have A Medical Power Of Batch Tester? No MIGRATION.75354 32263 Information not available 07/14/2022 What Was The Date Of Your Most Recent Tobacco Screening? 07/04/2023 [email or web address] Information not available 07/04/2023 Do You Have Any Pets? No MIGRATION.31845 77333 Information not available 07/14/2022 Do You Use Your Seat Belt Or Car Seat Routinely? Yes MIGRATION.20241 25811 Information not available 07/14/2022 Do You Have Smoke And Carbon Monoxide Detectors In Your Home? Yes MIGRATION.93161 03842 Information not available 07/14/2022 Are You Passively Exposed To Smoke? No MIGRATION.00089 64840 Information not available 07/14/2022 Are There Any Smokers In Your House? No MIGRATION.21318 57189 Information not available 07/14/2022 How Much Tobacco Do You Smoke? No MIGRATION.32795 04998 Information not available 07/14/2022 Do You Use Sunscreen Routinely? No MIGRATION.96935 84066 Information not available 07/14/2022 Have You Recently Traveled Abroad? No MIGRATION.41312 00031 Information not available 07/14/2022 Do You Have Difficulty Walking Or Climbing Stairs? No MIGRATION.06834 41186 Information not available 07/14/2022 Do You Have Any Dietary Restrictions? No MIGRATION.22893 88423 Information not available 07/14/2022 Sex: Unknown Functional Status Question Answer Note LastModified by Organizat ion Details LastModified Time What is your level of alcohol consumption? Occasional MIGRATION.932286 0324 Information not available 07/14/2022 Do you or have you ever used smokeless tobacco? Never used smokeless tobacco MIGRATION.456447 7395 Information not available 07/14/2022 Do you have transportation difficulties? No MIGRATION.524657 6529 Information not available 07/14/2022 Are you able to walk independently without assistance or assistive devices? YESWOREST MIGRATION.985881 9086 Information not available 07/14/2022 Do you have difficulty doing errands alone? No MIGRATION.081792 6781 Information not available 07/14/2022 Are you able to care for yourself independently? Yes MIGRATION.093674 9324 Information not available 07/14/2022 What is your occupation? unemployed MIGRATION.637418 1257 Information not available 07/14/2022 Do you have difficulty dressing, bathing, grooming, or toileting? No MIGRATION.834779 9771 Information not available 07/14/2022 Do you or have you ever used e-cigarettes or vape? Never used electronic cigarettes MIGRATION.658320 6527 Information not available 07/14/2022 What is your exercise level? Moderate MIGRATION.799285 3786 Information not available 07/14/2022 Mental Status Question Answer Note LastModified by Organizat ion Details LastModified Time Do you have difficulty concentrating, remembering or making decisions? No MIGRATION.[id number] 6 Information not available 07/14/2022 Family History Relationship Description Onset Age of this Age Resolved Age Notes LastModified by Organization Details LastModified Time Mother Hypertensive disorder MIGRATION.120 [id number] Not available 07/14/2022 14:46:03 Father Alzheimer's disease 82 MIGRATION.760 [id number] Not available 07/14/2022 14:46:03 Brother Malignant neoplasm of colon MIGRATION.484 [id number] Not available 07/14/2022 14:46:03 Brother Intracranial hemorrhage MIGRATION.995 [id number] Not available 07/14/2022 14:46:03 Brother History of poliomyeliti s MIGRATION.829 [id number] Not available 07/14/2022 14:46:03 Notes:Five brothers one with CA of colon, ICH and hx of polio. . Others living and in good health. Medical History Condition Response BLINDNESS N NERVE DISEASE N RHEUMATIC FEVER N BLADDER PROBLEMS N KIDNEY STONES N MRSA N OTHER # 1 N POLIO N LUNG DISEASE/DISORDER N HISTORY OF DRUG ABUSE N RADIATION / CHEMOTHERAPY N COPD N Other # 2 N BLOOD DISEASES N EAR OR HEARING PROBLEMS N MUMPS N SHINGLES N DEPRESSION (INCLUDING POST ) N BOWEL PROBLEMS N STROKE/TIA N ULCERS N BENIGN PROSTATIC HYPERPLASIA N MEASLES N HYPOTENSION N MYOCARDIAL INFARCTION N OBESITY N GERD/NAUSEA N ANEURYSM N URINARY/BLADDER/KIDNEY PROBLEMS N CORONARY ARTERY DISEASE (CAD) N ADDICTION CONCERNS N ENDOMETRIOSIS N Impotence N USE OF BLOOD THINNERS N SKIN [...] GLAUCOMA N FOOT PROBLEM N DIVERTICULITIS N CHICKENPOX N SLEEP APNEA N INFECTIOUS DISEASE N HEART ARRHYTHMIA N PROSTATE N INSOMNIA N HIGH CHOLESTEROL / HYPERLIPIDEMIA N HYPERTHYROIDISM N EYE PROBLEMS N EDEMA N CHRONIC PAIN SYNDROME N HYPOTHYROIDISM N CAROTID BLOCKAGE N CONSTIPATION N BACK / NECK PROBLEMS Y HAVE YOU BEEN HOSPITALIZED OR SEEN IN [facility] IN THE PAST YEAR ? N ATHEROSCLEROSIS N BREAST PROBLEMS N DIALYSIS N ECZEMA N OSTEOPOROSIS N ARTHRITIS N NO SIGNIFICANT PAST MEDICAL HISTORY N APPENDICITIS N DIABETES, TYPE N BAD TEETH N ENT N HEARTBURN / REFLUX N AUTISM SPECTRUM DISORDER (ASD) N HEPATITIS / LIVER DISEASE N GOUT N SLEEP DISORDER N ALZHEIMER'S DISEASE N Brain Problems N HERPES N DEMENTIA N HEADACHES/MIGRAINES Y SEIZURES/EPILEPSY N VASCULAR DISEASE N PACEMAKER N Blood Disorder N DIZZINESS N HEART DISEASE/HEART PROBLEMS N KIDNEY DISEASE N MULTIPLE SCLEROSIS N CARDIAC ARRHYTHMIA N CANCER: SPECIFY N ATRIAL FIBRILLATION N Gall Stones N PULMONARY EMBOLISM N AUTOIMMUNE DISEASE N Immunizations Vaccine Type Date Status Note Provider Nam e and Address Organization Details Recorded Time SARS-COV-2 (COVID-19) vaccine, UNSPECIFIED 1 completed Not Available [facility] [facility] 14:52:51 SARS-COV-2 (COVID-19) vaccine, UNSPECIFIED 1 completed Not Available [facility] 07/14/2022 14:52:51 pneumococcal polysaccharide PPV23 2 completed Not Available [facility] 07/14/2022 14:52:52 Pneumococcal conjugate PCV 13 1 completed Not Available [facility] 07/14/2022 14:52:52 Past Encounters Encounter ID Performer Location Encounter Start Date Encounter Closed Date Diagnosis/Indication Diagnosis SNOMED-CT Code Diagnosis ICD10 Code Diagnosis IMO Codes Diagnosis Note [id number] Ayo Huber MD S_[facility] Internal [facility] [address] [facility] [address] , [place] [address] 09/16/2020 00:00:00 09/16/2020 11:56:40 [id number] _ATHN_MIGR ATION_1 _ATHENA_M IGRATION_ DEFAULT_1 _1 , 09/24/2020 00:00:00 09/24/2020 11:26:37 [id number] Ayo Huber MD [facility] Internal Med [facility] [address] [address] 01/29/2021 00:00:00 01/29/2021 11:36:03 [id number] Ayo Huber MD [facility] Internal Med [facility] [address] [address] 07/15/2021 00:00:00 07/15/2021 10:37:02 [id number] Jarocho Rubi MD S_[facility] [place] [address] [facility] [address] [place] [address] 11/05/2021 00:00:00 11/05/2021 13:50:35 [id number] Ayo Huber MD [facility] Internal Med [facility] [address] [address] 01/13/2022 00:00:00 01/13/2022 11:07:26 [id number] Ayo Huber MD [facility] Internal Med [facility] [address] [address] 06/23/2022 00:00:00 06/23/2022 15:34:38 [id number] Jarocho Rubi MD [facility] Orth[facility] [place] [address] [place] [address] 09/30/2022 09:27:47 09/30/2022 10:12:24 Pain in right foot 0637007198 11329 M79.671 Tendinitis of right posterior tibial tendon 7161446793 05912 M76.821 Acquired p es planus of right foot 3589687789 61513 M21.41 [id number] Ayo Huber MD [facility] Internal Med [facility] [address] [address] 10/27/2022 15:13:42 10/27/2022 16:01:33 Chronic pain syndrome 734504821 G89.4 [id number] Ayo Huber MD [facility] Internal Med [facility] [address] [address] 07/04/2023 15:17:30 07/04/2023 16:11:38 Adult health examination 228346726 Z00.00 Screening for disorder 992766208 Z13.9 Hypercholesterolemia 136 95443 E78.00 Chronic pain syndrome 37 2339286 G89.4 Abdominal pain 67996069 R10.9 Disorder of prostate 302 47115 N42.9 [id number] Ayo Huber MD [facility] Internal Med [facility] [address] [address] 12/26/2023 16:57:55 12/26/2023 17:20:07 Chronic pain syndrome 253381540 G89.4 Gastroesop hageal reflux disease 782172902 K21.9 Benign pro static hyperplasia 790023544 N40.1 Testicular hypofunction 322154240 E29.1 [id number] Ayo Huber MD [facility] Internal Med [facility] [address] [address] 04/30/2024 14:33:28 04/30/2024 14:53:40 Chronic pain syndrome 872209338 G89.4 Gastroesop hageal reflux disease 157380647 K21.9 Hypercholesterolemia 136 35582 E78.00 History of polyp of colon 629581453 Z86.0100 [id number] Ayo Huber MD [facility] Internal Med [facility] [address] [facility] [address] [place] [address] 07/11/2024 11:49:39 07/11/2024 12:34:08 Chronic pain syndrome 520595504 G89.4 Gastroesop hageal reflux disease 993094358 K21.9 Benign pro static hyperplasia 530845791 N40.1 [id number] Ayo Huber MD [facility] Internal Med [facility] [address] [address] 09/03/2024 14:44:48 09/03/2024 15:23:15 Chronic pain syndrome 097278529 G89.4 Gastroesop hageal reflux disease 907874775 K21.9 Hypercholesterolemia 136 06398 E78.00 Health Concerns Section Related Observation LastModified by Organization Detai ls LastModified Time None Recorded Concern Status LastModified by Organization Details LastModified Time None Recorded Advance Directives Directive N: Payers Insurance Date Sequence Insurance Name Policy Number Policy Godfrey Covered Member ID Godfrey Member ID Guarantor Name 09/07/2024 1 [facility] (MEDICARE REPLACEMENT/A DVANTAGE - HMO) [id number] Joi Stubbs [id number] Joi Stubbs Notes Date Note Type Note Provider Name and Address Organization Details Recorded Time 07/04/2023 text/html Patient Name: Joi Raygozaate Of Service: Tuesday ( 07.04.2023 ): 1955 [...] or has seen in the past a Angiography Nurse: Yes .Pain - Enjoyment of Life - [...] RELEASE - ORAL) One Daily Vaccination and Lgzkthysqeha9397-68 Pcqtafham5099-18 Covid Nzypve6675-95 Prevnar 13 Gc Surgical Cfcodrb7535-68 Kaicpinumym7929-50 Rt. Ckdpq0273-89 Rt. Knee Replacement Preventative Testing Confirmed by Our Lplpupx3906/28/2023 ALBUMIN 4.2 G/DL01/13/2022 PSA 0.35 NG/ML N006/22/2021 QTQBXEUABGDJW77/05/2019 COLONOSCOPY (5 YEARS) 01/19/2024 Social HistoryDoes not smokeDrinks sociallyWorks in heating and cooling Family ZqrlbfkDaxchu47+ HTNFather 82 hx of Alzheimer'sFive brothers one [...] 47 30-110 U/L Ayo Huber MD [address] [facility], [facility] [address], [place], [address], [facility] 07/04/2023 16:00:05 12/26/2023 text/html Patient Name: Joi [...] Systemic Symptoms:none Medication Reconciliation: from medication list. Szvypuitect42-45-8178: Regular stress test Norris protocol normal exercise [...] or has seen in the past a Angiography Nurse: Yes .Pain - Enjoyment of Life - [...] RELEASE - ORAL) One Daily Vaccination and Uhsziqhlhprs2648-56 Axqvwvrgj1610-46 Covid Jjlmut9923-53 Prevnar 13 Gc Surgical Apukser2356-82 Itfjhqpgipk0733-49 Rt. Ijfyk0013-85 Rt. Knee Replacement Preventative Testing( ) 07/13/2023 Albumin 4.4 G/DL( ) 07/13/2023 PSA 0.25 NG/ML N 07/13/2025( ) 06/22/2021 Ophthalmology( ) 01/18/2019 Colonoscopy (5 Years) 01/19/2024 Social HistoryDoes not smokeDrinks sociallyWorks in heating and cooling Family FevemmnGybafo69+ HTNFather 82 hx of Alzheimer'sFive brothers one with CA of colon, ICH and hx of polio. . Others living and in good health. Ayo Huber MD [address] [facility], [facility] [address], [place], [address], [place] [facility] 12/26/2023 17:15:40 04/30/2024 text/html Patient Name: Joi [...] Systemic Symptoms:none Medication Reconciliation: from medication list. Blekkkyxxuw22-16-3193: Regular stress test Norris protocol normal exercise [...] or has seen in the past a Angiography Nurse: Yes .Pain - Enjoyment of Life - [...] PREVNAR 13 GC( ) 2021-12 PNEUMOVAX Surgical Gozbnik4110-41 Hkmfjibvgbd5898-78 Rt. Gdagw4225-14 Rt. Knee Replacement Preventative Testing( ) 02/22/2024 Upper Endoscopy 02/21/2059( ) 07/13/2023 Albumin 4.4 G/DL( ) 07/13/2023 PSA 0.25 NG/ML N 07/13/2025( ) 06/22/2021 Ophthalmology(X) 01/18/2019 Colonoscopy (5 Years) 01/19/2024 Social HistoryDoes not smokeDrinks sociallyWorks in heating and cooling Family AldaotsTgvulm23+ HTNFather 82 hx of Alzheimer'sFive brothers one with CA of colon, ICH and hx of polio. . Others living and in good health. Ayo Huber MD [address] [place] [address], [facility] [address], [place], [address], [facility] 04/30/2024 14:47:37 09/03/2024 text/html Patient Name: Joi [...] Systemic Symptoms:none Medication Reconciliation: from medication list. Bydxaeaikpm37-40-0101: Regular stress test Norris protocol normal exercise [...] or has seen in the past a Angiography Nurse: Yes .Pain - Enjoyment of Life - [...] PREVNAR 13 GC( ) 2021-12 PNEUMOVAX Surgical Welqshd5809-80 Mwmmeirfoie7739-62 Rt. Daoch9235-69 Rt. Knee Replacement Preventative Testing( ) 07/12/2024 Albumin 4.6 G/DL N( ) 02/22/2024 Upper Endoscopy( ) 07/13/2023 PSA 0.25 NG/ML N 07/13/2025( ) 06/22/2021 Ophthalmology(X) 01/18/2019 Colonoscopy (5 Years) 01/19/2024 Social HistoryDoes not smokeDrinks sociallyWorks in heating and cooling Family XcqpxdlGfpdhc90+ HTNFather 82 hx of Alzheimer'sFive brothers one [...] 0.70-1.35 MG/DLEGFR 93 > OR = 60 ML/MIN/1.22I9FJOFCULG PHOSPHATASE 59 35-144 U/LAST 27 10-35 U/LALT 21 9-46 U/LT4, FREE Date: 07/12/2024T4, FREE 1.1 0.8-1.8 NG/DLTSH Date: 07/12/2024TSH 2.01 0.40-4.50 MIU/LTESTOSTERONE, TOTAL, MS Date: 06/25/2024TESTOSTERONE, TOTAL, MS [phone] NG/DL Ayo Huber MD [address] [facility], [facility] [address], [place], [address], [place] [facility] 09/03/2024 15:18:51
[2025-04-09 11:13] VITALS: BP 110/76; PULSE 64; RESP 18; TEMP 37.1; O2SAT 97
[2025-04-09] MEDS: LACTATED RINGERS 1,000 ML 150 ML IV CONT (11:15)
--- NOTE | 2025-04-09 12:04 | P.PNAN_ITS ---
Anes - Initial Pre Proc Eval Procedure: Operation Date: 04/09/25 12:30 Proposed Procedures p Screening Colonoscopy - Marco A Baez MD Date/Time: 04/09/25 12:04 Surgeon: Marco A Baez MD Pre Op Diagnosis: Family history of malignant neoplasm of digestive Patient Data Age: 69 Gender: M Height: 1.88 m Weight: 80.4 kg Last Vital Signs Temp 98.8 F 04/09/25 11:13 Pulse 64 04/09/25 11:13 Resp 18 04/09/25 11:13 BP 110/76 04/09/25 11:13 Pulse Ox 97 04/09/25 11:13 O2 Del Method Room Air 04/09/25 11:13 Allergies Allergy/AdvReac Type Severity Reaction Status Date / Time trazodone Allergy Mild Angioedema Verified 04/09/25 11:12 amitriptyline Allergy Unknown EDEMA Verified 04/09/25 11:12 Home Medications ?Medication ?Instructions ?Recorded ?Confirmed ?Type pantoprazole 40 mg tablet,delayed 40 mg PO QAM 1 month #30 tabs 08/20/22 04/09/25 Rx release famotidine 40 mg tablet 40 mg PO QHS 1 month #30 tab s 02/08/24 04/09/25 Rx morphine 15 mg tablet,extended 15 mg PO Q8H 02/08/24 1 06/09/24 History release tamsulosin 0.4 mg capsule (Flomax) 0.4 mg PO DAILY 04/09/25 History Patient hx anesthesia problems: none Family hx anesthesia problems: none Results Review: All pre-operative results and documents have been reviewed as part of the pre- operative evaluation. [facility] Past Medical History Medical History Early satiety Cough Right knee DJD Bilateral wrist deformity Pre-diabetes Hx of migraines Back pain Thrombocytopenia Depression Chronic pain RLQ abdominal pain GERD (gastroesophageal reflux disease) Nausea Nephrolithiasis Surgical History Surgical History H/O endoscopy Hx of colonoscopy Family History Family History Sibling Carcinoma of colon, Onset Age: 54 Social History Social History Smoking status: Never smoker Alcohol intake: never Substance use: former Substance use type: marijuana Living arrangements: with family Gender identity (if verbalized by the patient): Male Spiritual care concerns: No Anes - Eval Final PreProcedure Day of Procedure 04/09/25 12:04 Patient weight: normal Lungs: normal air movement Airway: Mallampati scale class II Neurological: alert and oriented Last oral intake: >/= 8 hours ASA classification: II Emergent: no Anesthetic plan: proceed Anesthesia type and monitoring: general GIVS and standard monitoring Results Review: All pre-operative results and documents have been reviewed as part of the pre- operative evaluation. Chr pain on morphine prison, GERD. Informed Consent: The patient's anesthetic plan and its attendant risks and benefits were discussed with the patient/family/POA. Questions were solicited and answers provided to the satisfaction of the patient/family/POA.
--- NOTE | 2025-04-09 12:21 | PM.HPGS ---
History of Present Illness History of Present Illness Consent: Risks, benefits, and alternatives have been discussed and questions answered. Patient agrees to proceed with procedure. Chief complaint: Family history of malignant neoplasm of digestive Narrative: Kvng Flores is a 69 year old male with last colonoscopy 2019, brother of colon cancer Review of Systems Review of Systems: All systems reviewed & are unremarkable except as noted in HPI and below PMFSH Past Medical History Medical History (Updated 04/09/25 @ 12:22 by Marco A Baez MD) Family history of colon cancer Early satiety Cough Right knee DJD Bilateral wrist deformity Pre-diabetes Hx of migraines Back pain Thrombocytopenia Depression Chronic pain RLQ abdominal pain GERD (gastroesophageal reflux disease) Nausea Nephrolithiasis Surgical History Surgical History H/O endoscopy Hx of colonoscopy Family History Family History Sibling Carcinoma of colon, Onset Age: 54 Social History Social History Smoking status: Never smoker Alcohol intake: never Substance use: former Substance use type: marijuana Living arrangements: with family Gender identity (if verbalized by the patient): Male Spiritual care concerns: No Meds Home Medications and Allergies Home Medications ?Medication ?Instructions ?Recorded ?Confirmed ?Type pantoprazole 40 mg tablet,delayed 40 mg PO QAM 1 month #30 tabs 08/20/22 04/09/25 Rx release famotidine 40 mg tablet 40 mg PO QHS 1 month #30 tabs 02/08/24 04/09/25 Rx morphine 15 mg tablet,extended 15 mg PO Q8H 02/08/24 04/09/25 History release tamsulosin 0.4 mg capsule (Flomax) 0.4 mg PO DAILY 02/08/24 04/09/25 History Allergies Allergy/AdvReac Type Severity Reaction Status Date / Time trazodone Allergy Mild Angioedema Verified 04/09/25 11:12 amitriptyline Allergy Unknown EDEMA Verified 04/09/25 11:12 Vital Signs Vital Signs - 24 hr 04/09/25 11:13 Temperature 98.8 F Pulse Rate 64 Respiratory Rate 18 Blood Pressure 110/76 Pulse Oximetry 97 Oxygen Delivery Room Air Exam Const: General: comfortable and no acute distress HENMT: Face/Nose/Sinus: Normal nares present Eyes: General: appearance normal, both eyes and all related structures Neck: Neck: no JVD Resp: Auscultation: clear to auscultation bilaterally Cardio: Rate: regular rate Rhythm: regular rhythm GI: Inspection: non-distended GI Palp: Yes Soft to palpation Skin: General skin exam: normal color Extrem: General: normal to inspection Psych: Mental Status: mental status grossly normal Assessment and Plan Assessment and plan (1) Family history of colon cancer: Code(s): Z80.0 - Family history of malignant neoplasm of digestive organs Status: Acute Assessment and Plan: colonoscopy
--- NOTE | 2025-04-09 12:33 | S_PTH ---
PATIENT: Kvng Flores LOC: NIR Cha#:[id number] AGE/SX: 69/M ROOM: RE04/09/[address]: Marco A Baez MD : 1955 BED: DIS: 04/09/2025 SPEC #: [id number] RECD: 04/09/25 13:19 STATUS: SHANTHI REIzzy #: [id number] ANDRES: 04/09/25 12:[address]: Macro A Baez DEPT: [facility] Surgical RECD BY: [address] Street ENTERED: 04/09/25 13:19 SP TYPE: Surgical OTHR DR: Ayo Huber, Tissues: A - Colon Polypectomy Procedures: Hematoxylin and Eosin Stain Gross and Microscopic Level 4
[2025-04-09 12:35] VITALS: BP 89/56; PULSE 54; RESP 14; O2SAT 95
[2025-04-09 12:45] VITALS: BP 102/61; PULSE 58; RESP 15; O2SAT 100
[2025-04-09 12:55] VITALS: BP 103/66; PULSE 56; RESP 17; O2SAT 100
== END 2025-04-09 13:06 | disposition home or self-care (01) ==
PROVIDERS: PCP Internal Medicine; Referring Provider Internal Medicine; Visit Provider Internal Medicine Gastroenterology
PROC: 0DJD8ZZ Inspection of Lower Intestinal Tract, Via Natural or Artificial Opening Endoscopic (ICD-10-PCS; CPT 45378; principal; 2025-04-09 12:30)
DX: Z12.11 Encounter for screening for malignant neoplasm of colon (principal); D12.5 Benign neoplasm of sigmoid colon; K64.8 Other hemorrhoids; Z80.0 Family history of malignant neoplasm of digestive organs
CPT/HCPCS: 45380; 88305; J2003; J2704; J7120